=== PATIENT | female | born 1955 | race Caucasian/White ===

== ENCOUNTER 2022-06-09 13:10 | Outpatient (REF) | payer MEDICARE, SELFPAY ==
--- NOTE | ~2022-06-09 | MM_ITS ---
EXAMINATION: MM SCREENING DIGITAL BREAST TOMOSYNTHESIS, BILATERAL CLINICAL INFORMATION: Screening. Asymptomatic. The lifetime risk of breast cancer based on the Tyrer-Cuzick Model is 8%. COMPARISON: Outside mammography: 11/07/2016, 11/16/2015, 11/03/2015, 10/27/2014 ([place]) TECHNIQUE: Digital breast tomosynthesis is performed in both the craniocaudal and mediolateral oblique views along with computer-aided detection (CAD). Synthesized 2D images are generated from the tomosynthesis. FINDINGS: The breasts are heterogeneously dense, which may obscure small masses (ACR BI-RADS breast composition Category c). Breast tissue composition borders on extremely dense. Parenchymal pattern is similar to prior outside studies. There is no significant mass or abnormal calcifications. No architectural abnormality or developing density. The axilla are unremarkable. MM/MM tomosynthesis screening BI IMPRESSION: No mammographic evidence of malignancy. ASSESSMENT: BI-RADS 1: Negative RECOMMENDATION: Routine annual mammography screening. This patient's information was entered into a reminder system with a target due date for their next mammogram.
--- NOTE | ~2022-06-09 | MM_ITS ---
EXAMINATION: BONE DENSITOMETRY CLINICAL INDICATION: Menopause. COMPARISON: This is the patient's baseline examination. TECHNIQUE: Using a [employer] DXA System (software version: 13.1) manufactured by [employer], dual-energy x-ray absorptiometry was performed of the lumbar spine and left hip. The images are of good technical quality. Summary results are attached. FINDINGS: AP SPINE L1-L4: BMD 0.831 g/cm2, Z-score -1.0, T-score -2.9, osteoporosis. LEFT FEMUR, NECK: BMD 0.774 g/cm2, Z-score -0.2, T-score -1.9, osteopenia. LEFT FEMUR, TOTAL: BMD 0.749 g/cm2, Z-score -0.6, T-score -2.1, osteopenia. IDENTIFIED RISK FACTORS: Menopause, tobacco use (current smoker). HISTORY OF FRACTURE: None listed. MEDICATIONS: None listed. MM/XR DEXA axial skeleton IMPRESSION: 1. DIAGNOSIS: Osteoporosis based on the lowest T-score value of -2.9 in the lumbar spine applying World Health Organization criteria. 2. 10-YEAR FRACTURE RISK PREDICTION, FRAX: According to the guidelines, FRAX calculation should only be performed on patients in the osteopenia bone density category. Therefore, FRAX was not performed on this patient. 3. Treatment Recommendations: NOF guidelines recommend consideration for treatment in postmenopausal women and men age 50 and older presenting with the following: -A hip or vertebral (clinical or morphometric) fracture. -T-score less than or equal to -2.5 at the femoral neck or spine after appropriate evaluation to exclude secondary causes. -Low bone mass at the hip or spine and a 10-year fracture probability by FRAX of greater than or equal to 3% for hip fracture or greater than or equal to 20% for major osteoporotic fracture based on the [place] adapted WHO algorithm. 4. Other Recommendations: All treatment decisions require clinical judgment and consideration of individual patient factors, including patient preferences, comorbidities, previous drug use, risk factors not captured in the FRAX model (e.g. frailty, falls, vitamin D deficiency, increased bone turnover, interval significant decline in bone density) and possible under or overestimation of fracture risk by FRAX. Additional medical evaluation for secondary cause of low bone mineral density may be appropriate. FUTURE SCAN RECOMMENDATION: People with diagnosed cases of osteoporosis or at high risk for fracture should have regular bone mineral density tests. For patients eligible for Medicare, routine testing is allowed once every 2 years. The testing frequency can be increased to one year for patients who have rapidly progressing disease, those who are receiving or discontinuing medical therapy to restore bone mass, or have additional risk factors.
== END 2022-06-09 13:11 | disposition home or self-care (01) ==
LOC: HO.MAMMO 13:10
PROVIDERS: Visit Provider Nurse Practitioner Family
DX: Z12.31 Encounter for screening mammogram for malignant neoplasm of breast (principal); Z13.820 Encounter for screening for osteoporosis; Z78.0 Asymptomatic menopausal state
CPT/HCPCS: 77063; 77067; 77080

== ENCOUNTER 2022-07-15 06:32 | Outpatient (REF) | payer MEDICARE, SELFPAY ==
[2022-07-15 11:43] LABS: MANUAL DIFF FLAG NO
[2022-07-15 11:49] LABS: Basophils Absolute Auto 0.1 X10*3/uL (0.0-0.2); Basophils Percent Auto 0.8 % (0-2); Eosinophils Absolute Auto 0.2 X10*3/uL (0.0-0.4); Eosinophils Percent Auto 1.5 % (0-4); Hematocrit 44.3 % (37.0-47.0); Hemoglobin 14.6 g/dl (12.0-16.0); Imm Gran Abs Auto 0.03 X10*3/uL (0.00-0.03); Imm Gran Pct Auto 0.3 % (0.0-0.4); Lymphocytes Absolute Auto 2.3 X10*3/uL (1.2-4.9); Lymphocytes Percent Auto 21.4 % (20-40); Mean Corpuscular Hemoglobin 28.2 pg (27.0-33.0); Mean Corpuscular Volume 85.7 fL (80.0-98.0); Monocytes Absolute Auto 0.9 X10*3/uL (0.1-1.2); Monocytes Percent Auto 8.5 % (2-11); Neutrophils Absolute Auto 7.2 x10*3/uL (2.0-8.3); Neutrophils Percent Auto 67.5 % (45-73); Platelet Count 311 X10*3/uL (160-400); Red Blood Count 5.17 X10*6/uL (4.20-5.50); Red Cell Distribution Width 14.1 % (11.0-16.0); White Blood Count 10.6 X10*3/uL (4.8-10.8)
[2022-07-15 11:49] LABS: Appearance Urine Clear; Color Urine Yellow; Glucose Urine UA Negative (Negative); Leukocyte Esterase Urine Moderate (2+) (Negative); Nitrite Urine Negative (Negative); Specific Gravity - Urine 1.025 (1.005-1.025); UMIC TRIGGER UACC YES; Urine Blood Moderate (2+) (Negative); Urine Ketones Negative (Negative); Urine Protein Trace mg/dL (Neg-Trace)
[2022-07-15 11:57] LABS: Bacteria Urine 1+ (None Seen); Hyaline Casts Urine 0-2 /LPF (0-2); UACC Culture Trigger YES
[2022-07-15 12:20] LABS: Alanine Aminotransferase 19 U/L (0-31); Alkaline Phosphatase 72 U/L (39-117); Anion Gap 14 (12-20); Aspartate Amino Transferase 16 U/L (5-31); Bilirubin Total 0.6 mg/dL (0.0-1.0); Blood Urea Nitrogen 15 mg/dL (9-16); Calcium 9.4 mg/dL (8.4-10.2); Carbon Dioxide 23 mmol/L (22-29); Chloride 111 mmol/L (96-108); Cholesterol 235 mg/dL; Estimated Glomerular Filt Rate > 60; Glucose Fasting 93 mg/dL (60-99); HDL Cholesterol 76 mg/dL; LDL Cholesterol Calculated 143 mg/dl; Potassium 4.2 mmol/L (3.3-5.1); Sodium 144 mmol/L (135-145); Total Protein 6.6 g/dL (6.5-8.0); Triglycerides 82 mg/dL
[2022-07-15 12:23] LABS: TSH reflex Free T4 1.34 uIU/mL (0.32-4.0); Vitamin D 25-OH Total 14.1 ng/mL (>30)
== END 2022-07-15 06:33 | disposition home or self-care (01) ==
LOC: HO.HMGCLDS 06:32
PROVIDERS: PCP Nurse Practitioner Family; Visit Provider Nurse Practitioner Family
DX: I10 Essential (primary) hypertension (principal); R82.90 Unspecified abnormal findings in urine; Z78.0 Asymptomatic menopausal state
CPT/HCPCS: 36415; 80053; 80061; 81001; 82306; 84443; 85025; 87086

== ENCOUNTER → 2022-09-01 09:43 | Outpatient (REF) | payer MEDICARE, SELFPAY ==
--- NOTE | 2022-09-01 09:45 | CA_ITS ---
Transthoracic Echocardiogram Patient (Last, First, Middle): Jenifer Moreno L Gender: Female Date of : 1955 Age: 66 Procedure Date: 09/01/2022 Procedure Type: Transthoracic Echocardiogram Location: OP Height: 157.48 cm Weight: 54.43 kg BSA: 1.54 m2 Heart Rate: 62 bpm BP: 134 / 84 mmHg Meat Specialist: SB Referring MD: Gerald Last [facility] Symptoms: R00.2 - Palpitations Study Quality: Adequate ECG Rhythm: Sinus Conclusions: - Normal left ventricular size, thickness, and systolic function. The visually estimated ejection fraction is between 60-65%. - Normal right ventricular cavity size and systolic function. Findings Left Ventricle Normal left ventricular size, thickness, and systolic function. The visually estimated ejection fraction is between 60-65%. Diastolic function is normal for age. Normal global longitudinal strain -20%. Right Ventricle Normal right ventricular cavity size and systolic function. Atria The left atrium is normal in size. The right atrium is normal in size. Aortic Valve Normal aortic valve structure and function. There is no aortic valve stenosis. There is trace (trivial) aortic valve regurgitation. Mitral Valve Normal mitral valve structure and function. There is trace mitral valve regurgitation. There is no mitral valve stenosis. Pulmonic Valve The pulmonic valve is likely normal. Tricuspid Valve Normal tricuspid valve structure and function. There is no tricuspid valve regurgitation. Normal right atrial pressure. There is no evidence of pulmonary hypertension. Great Vessels There is mild dilatation of the ascending aorta measuring 3.20 cm. The visualized portions of the pulmonary artery and branches are normal. Venous The inferior vena cava is normal in size and collapses greater than 50% with inspiration. Pericardium/Pleural There is no evidence of pericardial effusion. Prior Study Comparison No prior study available for comparison. Measurements 2D Linear Measurements IVSd: 0.82 0.6-0.9/0.6-1.0 cm LVIDd: 4.28 3.9-5.3/4.2-5.9 cm LVIDd Index: 2.78 2.4-3.2/2.2-3.1 cm/m2 LVIDs: 2.53 2.0-3.6 cm LVPWd: 0.80 0.7-1.1 cm LA Diam: 3.60 2.7-3.8/3.0-4.0 cm LAIDs Index: 2.34 1.5-2.3 cm/m2 LV Mass: 131.84 67-162/88-224 g LV Mass Index: 85.61 43-95/49-115 g/m2 LVOT Diam: 2.00 3.0+(-)1.3 cm 2D Systolic Function EF 4C: 70.60 >55% EF 2C: 71.30 >55% EF BiP: 71.40 >55% Mitral Valve MV Pk E: 0.97 MV PK A: 0.80 MV Decel Time: 210.00 E/A: 1.20 E'Lateral: 8.49 E'Medial: 7.40 E/E' Med: 13.10 E/E' Lat: 11.50 PHT: 61.00 MVA PHT: 3.61 Decel [place]: 4.64 Aortic Valve AoV Pk Nain: 1.26 AoV Mn Nain: 0.96 AoV VTI: 0.30 AoV Pk Grad: 6.00 Aov Mn Grad: 4.00 WONG Cont.VTI: 2.71 AI Pk Nain: 4.33 AI [place]: 1.99 LVOT LVOT Pk Nain: 1.13 LVOT Mn Nain: 0.73 LVOT VTI: 0.26 LVOT Pk Grad: 5.00 LVOT Mn Grad: 3.00 LVOT Diam: 2.00 LVOT Area: 3.14 Diastolic Function MV Pk E: 0.97 MV Pk A: 0.80 E/A: 1.20 E'Medial: 7.40 E/E' Med: 13.10 E' Laterial: 8.49 E/E' Lat: 11.50 Right Ventricle TAPSE (mm): 24.70 TVS' Nain: 13.70 Tricuspid Valve TR Pk Nain: 2.10 TR Pk Grad: 18.00 RA Press: 3.00 RVSP: 21.00 Great Vessels Aorta Sinus of Valsalva: 3.10 2.0-3.5 cm Ao Asc: 3.20 2.1-3.4 cm Pulmonary Veins Pulm Vein S/D 1.10 Pulmonary Valve PV Pk Nain: 1.18 Peak PV Grad: 6.00 Updated in Other Vendor System with Status of Final Miguel Pablo MD electronically signed on 09/04/2022 9:07:07 AM with status of Final
== END ==
LOC: HO.CARD 09:43
PROVIDERS: PCP Nurse Practitioner Family; Visit Provider Nurse Practitioner Family
DX: R00.2 Palpitations (principal); I10 Essential (primary) hypertension; F17.200 Nicotine dependence, unspecified, uncomplicated
CPT/HCPCS: 93306; 93356

== ENCOUNTER 2023-01-13 06:32 | Outpatient (REF) | payer MEDICARE, SELFPAY ==
[2023-01-13 11:51] LABS: Alanine Aminotransferase 25 U/L (0-31); Albumin Level 4.2 g/dL (3.5-5.0); Alkaline Phosphatase 58 U/L (39-117); Anion Gap 12 (12-20); Aspartate Amino Transferase 20 U/L (5-31); Bilirubin Total 0.4 mg/dL (0.0-1.0); Blood Urea Nitrogen 14 mg/dL (9-16); Carbon Dioxide 28 mmol/L (22-29); Chloride 108 mmol/L (96-108); Cholesterol 191 mg/dL; Estimated Glomerular Filt Rate > 60; Glucose Fasting 89 mg/dL (60-99); HDL Cholesterol 76 mg/dL; LDL Cholesterol Calculated 97 mg/dl; Potassium 3.8 mmol/L (3.3-5.1); Sodium 144 mmol/L (135-145); Total Protein 7.3 g/dL (6.5-8.0); Triglycerides 93 mg/dL
== END 2023-01-13 06:33 | disposition home or self-care (01) ==
LOC: HO.HMGCLDS 06:32
PROVIDERS: PCP Nurse Practitioner Family; Visit Provider Nurse Practitioner Family
DX: E78.5 Hyperlipidemia, unspecified (principal)
CPT/HCPCS: 36415; 80053; 80061

== ENCOUNTER 2023-01-22 07:59 | Outpatient (AMB) | payer MEDICARE, SELFPAY ==
[2023-01-22 08:08] VITALS: BP 126/70; PULSE 74; TEMP 36.6; O2SAT 97; BMI 23.6
--- NOTE | 2023-01-22 08:08 | MHC.OFFWIV ---
Intake Vital Signs 01/22/23 08:08 Height 5 ft 1 in Weight 56.699 kg BMI 23.6 BP 126/70 Blood Pressure Location Rt brachial Position Sitting Pulse 74 Pulse Source Pulse Oximeter Temp 97.8 F Temp Source Temporal Artery Scan Pulse Oximetry (%) 97 Intake Visit Reasons: Ear Pain/was JGs 830 appt Intake Note: pt is here for left pain due to swimming Patient Tobacco Use Status: Current everyday Tobacco user Allergies amoxicillin Allergy (Mild, Verified 01/22/23 08:09) hives sulfamethoxazole [From Bactrim] Allergy (Mild, Verified 01/22/23 08:09) Hives trimethoprim [From Bactrim] Allergy (Mild, Verified 01/22/23 08:09) Hives Do you need a note to return to daycare/school/sports/work: No HPI HPI Comments History of Present Illness Details 0825 67 yo f hx of htn presents w/ left ear pain for a few days worsening started after swimming. Denies otorrhea, fevers, chills, dizziness, weakness, headache, nausea, vomiting, abdominal pain. Physical exam with discomfort with manipulation of left external ear and mild errythema to L ear canal. History and physical exam concerning for otitis externa. Unlikely otitis media, malignant otitis, mastoiditis. No signs of sepsis Plan Ciprodex drops. Educated patient on diagnosis and treatment plan, answered all question, patient verbalizes understanding. At this time patient will be discharged home, advised to return with new or worsening symptoms. Educated on worrisome signs and symptoms and when to return. At this time I feel comfortable discharge home. 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 Current occupational exposures/hazards: Yes Cognitive needs: No Hearing needs: No Vision needs: No Review of Systems Const Details: Constitutional : No Weight loss, No Fever, No Chills, No Fatigue, No Malaise ENT/Mouth : No sore throat, No Rhinorrhea, +ear pain Eyes: No Eye Pain, No Swelling, No Redness Cardiovascular : No Chest Pain, No SOB, No Dyspnea on Exertion, No Orthopnea, No Edema, No Palpitations Respiratory : No Cough, No Sputum, No Wheezing Gastrointestinal : No Nausea, No Vomiting, No Diarrhea, No Constipation, No abdominal Pain, No Hematochezia, No Melena Genitourinary : No Dysuria, No Urinary Frequency, No Hematuria, Musculoskeletal : No joint pain, No Myalgias, No Joint Swelling Skin : No Skin Lesions, No rash Neuro : No Weakness, No Numbness, No Dizziness, No Headache Psych : No Anxiety/Panic, No Depression All other systems reviewed and are negative All systems reviewed & are unremarkable except as noted in HPI and below Physical Exam Vital Signs: Last Vital Signs Temp 97.8 F 01/22/23 08:08 Pulse 74 01/22/23 08:08 BP 126/70 01/22/23 08:08 Pulse Ox 97 01/22/23 08:08 BMI result Body Mass Index 23.6 vss Appearance: Alert.? Oriented X3.? No acute distress.? Head: Normocephalic, atraumatic, no step-offs or deformities Eyes: Pupils equal, round and reactive to light.? ENT: Pharynx normal.??External ears normal, TMs normal bilaterally and EAC's w/ errythema to left ear canal normal right ear canal. + pain with manipulation of external ears on left, negative on right. No mastoid tenderness. Neck: Normal inspection.? Neck supple.? CVS: Normal heart rate and rhythm.? Pulses normal.? Respiratory: No respiratory distress.? Breath sounds normal.? Abdomen: Soft and nontender.? Skin: Skin warm and dry.? Normal skin color.? Normal skin turgor.? Extremities: No lower extremity edema.? No calf ttp. 5/5 strength to bilateral upper and lower extremities Neuro: Oriented X 3.? No motor deficit.? No sensory deficit. CN 2-12 intact Assessment & Plan Assessment & Plan (1) Otitis externa: Code(s): H60.90 - Unspecified otitis externa, unspecified ear Plan Take your medications as prescribed. If you were prescribed antibiotics today, it is important that you take your medication to their entirety, do not skip any doses, do not finish them early. Follow-up with your primary care provider this week. Return to the emergency department with new or worsening symptoms. In case of emergency call 911 Medications: New ciprofloxacin-dexamethasone 0.3-0.1 % (Ciprodex) 4 drps otic (ears) BID 7.5 mL 0RF 7 days Coding Level of Care Code Est Pt Level 3 (30707) Diagnoses Otitis externa H60.90
== END 2023-01-22 08:58 | disposition home or self-care (01) ==
PROVIDERS: PCP Nurse Practitioner Family; Visit Provider Physician Assistant
DX: H60.92 Unspecified otitis externa, left ear (principal)
CPT/HCPCS: 99213

== ENCOUNTER 2023-03-20 15:07 | Outpatient (AMB) | payer MEDICARE, SELFPAY ==
--- NOTE | 2023-03-20 15:10 | A.OFFPC_ITS ---
Vital Signs 03/20/23 15:14 Height 5 ft 1 in Weight 130 lb BMI 24.6 BP 140/76 H Blood Pressure Location Rt brachial Position Sitting Pulse 76 Pulse Source Pulse Oximeter Pulse Oximetry (%) 97 Oxygen Delivery Method Room Air Intake Visit Reasons: 5 month f/u HTN r/s from 01/22 Allergies amoxicillin Allergy (Mild, Verified 03/20/23 15:14) hives sulfamethoxazole [From Bactrim] Allergy (Mild, Verified 03/20/23 15:14) Hives trimethoprim [From Bactrim] Allergy (Mild, Verified 03/20/23 15:14) Hives Tobacco use date assessed: 08/22/22 Fall risk assessment: No Falls in past year Last assessed Fall Risk: 03/20/23 Dental Screening Dental Screen Date: 03/20/23 Did you have a dental visit in the last 12 months?: Yes Did you have a dental problem in the last 6 months where you did not have access to dental care?: No Was dental information given to patient?: Patient has dentist HPI 5 month f/u HTN r/s from 01/22 HPI Details HTN: Blood pressure is managed with amlodipine 5mg. Pt reports that her blood pressure at home is in the 130s/70s. Denies chest pain, shortness of breath, headache, dizziness, and blurred vision. Refuses low-dose lung CTs. [facility] Medical History Osteoporosis Social History Housing: House Patient Tobacco Use Status: Current everyday Tobacco user Cigarettes Per Day: 4 e-Cigarette/Vaping Use: Never Used Second Hand Smoke Exposure: No service: No Current occupational status: employed Current occupation: [employer] Current occupational exposures/hazards: Yes Cognitive needs: No Hearing needs: No Vision needs: No Questionnaire Thrive Questionnaire Date Thrive assessed: 05/24/22 PAM-7 AMB Questionnaire PAM-7 Date PAM - 7 assessed: 05/24/22 Source: Developed by Drs. Kobe Rivera, Rika Mccann, Ceasar Nascimento and colleagues, with an educational steffen from [employer]. Review of Systems Const Reports as per HPI Physical exam (Primary Care) Vital Signs: Last Vital Signs Pulse 76 10/24/23 15:14 BP 140/76 H 03/20/23 15:14 Pulse Ox 97 03/20/23 15:14 Oxygen Delivery Method Room Air 03/20/23 15:14 BMI result Body Mass Index 24.6 Tobacco/Smoking Status: Tobacco use Status Tobacco use date assessed 08/22/22 03/20/23 15:11 Patient Tobacco Use Status Current everyday Tobacco 03/20/23 15:11 e-Cigarette/Vaping Use Never Used 03/20/23 15:11 Thrive Assessment: Date of Thrive Assessment Date Thrive assessed 05/24/22 03/20/23 15:11 Const General: cooperative Orientation/consciousness: patient oriented x3 Resp Effort & Inspection: normal respiratory effort Auscultation: clear to auscultation bilaterally Cardio Rate: regular rate Rhythm: regular rhythm Heart sounds: S1 normal heart sound present and S2 normal heart sound present Neuro General: patient oriented x3 Psych Appearance: grossly normal Mental Status: mental status grossly normal Speech and movement: Normal speech and movement present Affect: normal affect Attitude: cooperative Thought process: Normal thought process present Thought content: Normal thought content present Insight: Good insight present (Psych) Judgement: Good judgement present (Psych) Assessment and Plan Assessment & Plan (1) HTN (hypertension): Code(s): I10 - Essential (primary) hypertension Plan: Labs ordered (2) Osteoporosis: Code(s): M81.0 - Age-related osteoporosis without current pathological fracture Plan: Vitamin D ordered on vitamin d and calcium supplement Plan The patient agreed to the use of a medical insurance claims processor for this encounter. Scribed for DELVIN Mendoza by Erika Torres medical insurance claims processor, on 03/20/2023 at 15:25 EST Orders: Orders Complete Blood Count Auto Diff Today I10 - Essential (primary) hypertension TSH reflex Free T4 Today I10 - Essential (primary) hypertension UA CC w/rflx Micro + Cult Today I10 - Essential (primary) hypertension Comprehensive Hanna. Panel Fast Today I10 - Essential (primary) hypertension Lipid Panel Today I10 - Essential (primary) hypertension Vitamin D 25-OH Total Today M81.0 - Age-related osteoporosis without current pathological fracture Coding Level of Care Code Est Pt Level 3 (43126) Diagnoses HTN (hypertension) I10 Osteoporosis M81.0
[2023-03-20 15:14] VITALS: BP 140/76; PULSE 76; O2SAT 97; BMI 24.6
== END 2023-03-20 15:56 | disposition home or self-care (01) ==
PROVIDERS: PCP Nurse Practitioner Family; Visit Provider Nurse Practitioner Family
DX: I10 Essential (primary) hypertension (principal); M81.0 Age-related osteoporosis without current pathological fracture
CPT/HCPCS: 99213

== ENCOUNTER 2023-08-20 14:01 | Outpatient (REF) | payer MEDICARE, SELFPAY | END 2023-08-20 14:02 | disposition home or self-care (01) | LOC: HO.MAMMO 14:01 | PROVIDERS: PCP Nurse Practitioner Family; Visit Provider Nurse Practitioner Family | DX: Z12.31 Encounter for screening mammogram for malignant neoplasm of breast (principal) | CPT/HCPCS: 77063; 77067 ==

== ENCOUNTER → 2023-08-20 14:15 | Outpatient (BNV) | payer MEDICARE, SELFPAY | PROVIDERS: PCP Nurse Practitioner Family; Visit Provider Radiology Diagnostic Radiology | DX: Z12.31 Encounter for screening mammogram for malignant neoplasm of breast (principal) | CPT/HCPCS: 77063; 77067 ==

== ENCOUNTER 2023-09-19 06:41 | Outpatient (REF) | payer MEDICARE, SELFPAY ==
[2023-09-19 10:25] LABS: MANUAL DIFF FLAG NO
[2023-09-19 10:36] LABS: Basophils Absolute Auto 0.1 X10*3/uL (0.0-0.2); Basophils Percent Auto 0.8 % (0-2); Eosinophils Absolute Auto 0.1 X10*3/uL (0.0-0.4); Eosinophils Percent Auto 1.2 % (0-4); Hematocrit 42.2 % (37.0-47.0); Hemoglobin 14.3 g/dl (12.0-16.0); Imm Gran Abs Auto 0.04 X10*3/uL (0.00-0.03); Imm Gran Pct Auto 0.4 % (0.0-0.4); Lymphocytes Percent Auto 19.1 % (20-40); Mean Corpuscular HGB Conc 33.9 g/dl (31.0-35.0); Mean Corpuscular Volume 85.6 fL (80.0-98.0); Mean Platelet Volume 12.5 fL (9.4-12.3); Monocytes Absolute Auto 0.9 X10*3/uL (0.1-1.2); Monocytes Percent Auto 8.7 % (2-11); Neutrophils Absolute Auto 7.2 x10*3/uL (2.0-8.3); Neutrophils Percent Auto 69.8 % (45-73); Platelet Count 266 X10*3/uL (160-400); Red Blood Count 4.93 X10*6/uL (4.20-5.50); Red Cell Distribution Width 14.4 % (11.0-16.0); White Blood Count 10.3 X10*3/uL (4.8-10.8)
[2023-09-19 11:07] LABS: Alanine Aminotransferase 25 U/L (0-31); Albumin Level 4.2 g/dL (3.5-5.0); Alkaline Phosphatase 62 U/L (39-117); Anion Gap 11 (12-20); Aspartate Amino Transferase 20 U/L (5-31); Bilirubin Total 0.4 mg/dL (0.0-1.0); Blood Urea Nitrogen 15 mg/dL (9-16); Calcium 9.8 mg/dL (8.4-10.2); Carbon Dioxide 27 mmol/L (22-29); Chloride 108 mmol/L (96-108); Cholesterol 169 mg/dL (<200); Estimated Glomerular Filt Rate > 60; Glucose Fasting 92 mg/dL (60-99); HDL Cholesterol 72 mg/dL (>40); LDL Cholesterol Calculated 84 mg/dL (<100); Potassium 3.5 mmol/L (3.3-5.1); Sodium 142 mmol/L (135-145); Total Protein 7.3 g/dL (6.5-8.0); Triglycerides 68 mg/dL (<150)
[2023-09-19 11:26] LABS: TSH reflex Free T4 < 0.01 uIU/mL (0.32-4.0); Vitamin D 25-OH Total 58.1 ng/mL (>30)
[2023-09-19 12:36] LABS: Free T4 (Free Thyroxine) 1.27 ng/dL (0.71-1.85)
== END 2023-09-19 06:42 | disposition home or self-care (01) ==
LOC: HO.HMGCLDS 06:41
PROVIDERS: PCP Nurse Practitioner Family; Visit Provider Nurse Practitioner Family
DX: M81.0 Age-related osteoporosis without current pathological fracture (principal); I10 Essential (primary) hypertension
CPT/HCPCS: 36415; 80053; 80061; 82306; 84439; 84443; 85025

== ENCOUNTER 2023-09-24 15:02 | Outpatient (AMB) | payer MEDICARE, SELFPAY ==
--- NOTE | 2023-09-24 15:12 | A.OFFPC_ITS ---
Vital Signs 09/24/23 15:14 Height 5 ft 1 in Weight 121 lb BMI 22.9 BP 116/58 L Blood Pressure Location Rt brachial Position Sitting Pulse 71 Pulse Source Pulse Oximeter Pulse Oximetry (%) 98 Oxygen Delivery Method Room Air Intake Visit Reasons: 6 month fu Intake Note: Patient here to f/u on HTN and labs Allergies amoxicillin Allergy (Mild, Verified 09/24/23 15:32) hives sulfamethoxazole [From Bactrim] Allergy (Mild, Verified 09/24/23 15:32) Hives trimethoprim [From Bactrim] Allergy (Mild, Verified 09/24/23 15:32) Hives Medication List - Last Reconciled 09/24/23 by DELVIN Brito amlodipine 5 mg PO DAILY 90 days calcium carbonate-vitamin D3 600 mg-12.5 mcg (500 unit) (Calcium 600 with Vitamin D3) 1 cap PO BID 30 days rosuvastatin 10 mg PO DAILY sumatriptan succinate (Imitrex) 100 mg PO Q2-4H PRN Tobacco use date assessed: 09/24/23 Fall risk assessment: No Falls in past year Last assessed Fall Risk: 09/24/23 Dental Screening Dental Screen Date: 09/24/23 Did you have a dental visit in the last 12 months?: Yes Did you have a dental problem in the last 6 months where you did not have access to dental care?: No Was dental information given to patient?: Patient has dentist HPI 6 month fu HPI Details HTN: Blood pressure is managed with amlodipine 5mg. BP is lower today, though pt denies any dizziness. She reports that her blood pressure at home is in the 120s/60s-70s. Pt will contact me to stop med if she develops dizziness or hypotension. Denies chest pain, shortness of breath, headache, dizziness, and blurred vision. Pt's TSH was low. Denies diarrhea, tremors, and weight loss. Labs ordered, US of thyroid ordered, referring to endo. Pt refused LDCTs [facility] Medical History Osteoporosis Social History Housing: House Patient Tobacco Use Status: Current everyday Tobacco user Cigarettes Per Day: 4 e-Cigarette/Vaping Use: Never Used Second Hand Smoke Exposure: No service: No Current occupational status: employed Current occupation: [employer] Current occupational exposures/hazards: Yes Cognitive needs: No Hearing needs: No Vision needs: No Questionnaire Thrive Questionnaire Date Thrive assessed: 05/24/22 PAM-7 AMB Questionnaire PAM-7 Date PAM - 7 assessed: 05/24/22 Source: Developed by Drs. Kobe Rivera, Rika Mccann, Ceasar Nascimento and colleagues, with an educational steffen from [employer]. Review of Systems Const Reports as per HPI Physical exam (Primary Care) Vital Signs: Last Vital Signs Pulse 71 09/24/23 15:14 BP 116/58 L 09/24/23 15:14 Pulse Ox 98 09/24/23 15:14 Oxygen Delivery Method Room Air 09/24/23 15:14 BMI result Body Mass Index 22.9 Tobacco/Smoking Status: Tobacco use Status Tobacco use date assessed 09/24/23 09/24/23 15:18 Patient Tobacco Use Status Current everyday Tobacco 09/24/23 15:12 e-Cigarette/Vaping Use Never Used 09/24/23 15:12 Thrive Assessment: Date of Thrive Assessment Date Thrive assessed 05/24/22 09/24/23 15:12 Const General: cooperative Orientation/consciousness: patient oriented x3 Resp Effort & Inspection: normal respiratory effort Auscultation: clear to auscultation bilaterally and diminished lung sounds Cardio Rate: regular rate Rhythm: regular rhythm Heart sounds: S1 normal heart sound present and S2 normal heart sound present Neuro General: patient oriented x3 Psych Appearance: grossly normal Mental Status: mental status grossly normal Speech and movement: Normal speech and movement present Affect: normal affect Attitude: cooperative Thought process: Normal thought process present Thought content: Normal thought content present Insight: Good insight present (Psych) Judgement: Good judgement present (Psych) Assessment and Plan Assessment & Plan (1) Low TSH level: Code(s): R79.89 - Other specified abnormal findings of blood chemistry Plan: labs, US, referred to endocrinology (2) HTN (hypertension): Code(s): I10 - Essential (primary) hypertension Plan: stable currently, will cont to monitor Plan The patient agreed to the use of a medical scientific liaison for this encounter. Scribed for DELVIN Mendoza by katelynn Teresa scribe, on 09/24/2023 at 15:25 EST. Orders: Referrals Endocrinology Referral R79.89 - Other specified abnormal findings of blood chemistry Coding Level of Care Code Est Pt Level 3 (91775) Diagnoses Low TSH level R79.89 HTN (hypertension) I10
[2023-09-24 15:14] VITALS: BP 116/58; PULSE 71; O2SAT 98; BMI 22.9
== END 2023-09-24 15:32 | disposition home or self-care (01) ==
PROVIDERS: PCP Nurse Practitioner Family; Visit Provider Nurse Practitioner Family
DX: R79.89 Other specified abnormal findings of blood chemistry (principal); I10 Essential (primary) hypertension
CPT/HCPCS: 99213

== ENCOUNTER 2024-01-09 13:45 | Outpatient (REF) | payer MEDICARE, SELFPAY ==
--- NOTE | ~2024-01-09 | US_ITS ---
EXAMINATION: US THYROID CLINICAL INFORMATION: Other specified abnormal findings of blood chemistry. Low TSH. COMPARISON: None available. TECHNIQUE: Linear transducer grayscale and color Doppler examination with attention to the region of the thyroid. FINDINGS: SIZE: Measurements of the thyroid lobes and nodules are given in sagittal, anteroposterior and transverse dimensions respectively. Right Thyroid Lobe: 5.0 x 1.7 x 1.4 cm, volume 6.2 mL. Parenchyma: The gland echotexture is heterogeneous. Thyroid vascularity is increased. Left Thyroid Lobe: 3.9 x 2.1 x 1.7 cm, volume 7.3 mL. Parenchyma: The gland echotexture is heterogeneous. Thyroid vascularity is increased. Isthmus: 0.2 cm in maximum AP dimension. Estimated total number of nodules greater than or equal to 1 cm: 0. Time Checker nodules are described as follows: 1. Location: Left inferior. Size: 0.8 x 0.6 x 0.6 cm, volume 0.13 mL. Nodule characteristics: Composition: Solid (2). Echogenicity: Hyperechoic (1). Shape: Not taller than wide (0). Margins: Smooth (0). Echogenic Foci: Punctate echogenic foci (3). ACR TI-RADS total points: 6 ACR TI-RADS category: 4 2. Location: Right mid. Size: 0.5 x 0.5 x 0.4 cm, volume 0.05 mL. Nodule characteristics: Composition: Solid (2). Echogenicity: Isoechoic (1). Shape: Not taller than wide (0). Margins: Smooth (0). Echogenic Foci: None (0). ACR TI-RADS total points: 3 ACR TI-RADS category: 3 NODES: No lymphadenopathy is seen in the tissue surrounding the thyroid gland. US/US thyroid IMPRESSION: 1. Small bilateral thyroid nodules are seen, as detailed. No specific imaging follow-up is recommended. 2. There is heterogeneous thyroid echotexture and increased vascularity, which can be associated with thyroiditis. ACR TI-RADS RECOMMENDATION REFERENCE: Ultrasound-guided fine-needle aspiration, followup ultrasound, no further follow up. * TR1 (0 point) and TR2 (2 points): No FNA or follow up. * TR3 (3 points): FNA if more than or equal to 2.5 cm in maximum dimension, followup ultrasound in 1, 3 and 5 years if 1.5 to 2.4 cm in maximum dimension. * TR4 (4-6 points): FNA if more than or equal to 1.5 cm in maximum dimension, followup ultrasound in 1, 2, 3 and 5 years if 1 to 1.4 cm in maximum dimension. * TR5 (more than or equal to 7 points): FNA if more than or equal to 1 cm in maximum dimension, followup ultrasound every year for 5 years if 0.5 to 0.9 cm in maximum dimension. * TR3, TR4 or TR5 nodules that are below the size threshold for followup receive no follow up. Electronically signed by: Gerald Larkin MD 02/05/2024 08:05 PM EDT RP
== END 2024-01-09 13:46 | disposition home or self-care (01) ==
LOC: HO.HMGCX 13:45
PROVIDERS: PCP Nurse Practitioner Family; Visit Provider Nurse Practitioner Family
DX: R79.89 Other specified abnormal findings of blood chemistry (principal)
CPT/HCPCS: 76536

== ENCOUNTER 2024-03-19 10:02 | Outpatient (AMB) | payer MEDICARE, SELFPAY ==
[2024-03-19 10:05] VITALS: BP 130/72; PULSE 86; O2SAT 98; BMI 22.3
--- NOTE | 2024-03-19 10:05 | A.OFFPC_ITS ---
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 Accompanied by: Self / Same As Patient Allergies amoxicillin Allergy (Mild, Verified 03/19/24 11:44) hives sulfamethoxazole [From Bactrim] Allergy (Mild, Verified 03/19/24 11:44) Hives trimethoprim [From Bactrim] Allergy (Mild, Verified 03/19/24 11:44) Hives Medication List - Last Reconciled 03/19/24 by DELVIN Brito amlodipine 5 mg PO DAILY 90 days calcium carbonate-vitamin D3 600 mg-12.5 mcg (500 unit) (Calcium 600 with Vitamin D3) 1 cap PO BID 30 days rosuvastatin 10 mg PO DAILY sumatriptan succinate (Imitrex) 100 mg PO Q2-4H PRN Tobacco use date assessed: 09/24/23 Fall risk assessment: No Falls in past year Last assessed Fall Risk: 03/19/24 Dental Screening Dental Screen Date: 09/24/23 HPI 6 month fu HPI Details HTN: Blood pressure is stable, managed with amlodipine 5mg. Will order labs. Denies chest pain, shortness of breath, headache, dizziness, and blurred vision. Pt has a hx of low TSH. Pt was referred to endo in August but never heard anything about this. Will resubmit referral. Will order labs. [facility] Medical History Osteoporosis Surgical History No pertinent past surgical history Social History Housing: House Patient Tobacco Use Status: Current everyday Tobacco user Cigarettes Per Day: 4 e-Cigarette/Vaping Use: Never Used Second Hand Smoke Exposure: No service: No Current occupational status: employed Current occupation: [employer] Current occupational exposures/hazards: Yes Cognitive needs: No Hearing needs: No Vision needs: No Questionnaire PHQ-9 Over the last 2 weeks, how often have you been bothered by any of the following problems? 1. Little interest or pleasure in doing things: not at all 2. Feeling down, depressed, or hopeless: not at all 3. Trouble falling or staying asleep, or sleeping too much: not at all 4. Feeling tired or having little energy: not at all 5. Poor appetite or overeating: not at all 6. Feeling bad about yourself - or that you are a failure or have let yourself or your family down: not at all 7. Trouble concentrating on things, such as reading the newspaper or watching television: not at all 8. Moving or speaking so slowly that other people could have noticed. Or the opposite - being so fidgety or restless that you have been moving around a lot more than usual: not at all 9. Thoughts that you would be better off or of hurting yourself in some way: not at all Total score: 0 Depression Screening Interpretation: Negative Depression Screening Done: Yes 51170 - PHQ-9 Billing: Yes Source: Developed by Drs. Kobe Rivera, Rika Mccann, Ceasar Nascimento and colleagues, with an educational steffen from [employer] Thrive Questionnaire Date Thrive assessed: 03/19/24 I am a: Patient What is your living situation today?: I have a steady place to live Within the past 12 months, did the food you bought not last and you didn't have the money to get more?: Never true Within the past 12 months, did you worry whether your food would run out before you got money to buy more?: Never true Do you have trouble paying for medicines?: No Do you have trouble getting transportation to medical appointments?: No Do you have trouble paying your heating and electricity bill?: No Do you have trouble taking care of your child, family member or friend?: No Do you have trouble with day-to-day activities such as bathing, preparing meals, shopping, managing finances, etc.?: No Are you currently unemployed and looking for a job?: No Are you interested in more education?: No Please select the resources that you would like help with: None Currently or been in a relationship where the following occur: No concerns reported THRIVE Score: 0 AUDIT C Alcohol Use Questionnaire (AUDIT-C) 1. How often do you have a drink containing alcohol?: Never 3. How often do you have six or more drinks on one occasion?: Never Total Score: 0 Score Reviewed/Action Taken: Yes PAM-7 AMB Questionnaire PAM-7 Date PAM - 7 assessed: 03/19/24 Feeling nervous, anxious, or on edge: 0 = Not at all Not being able to stop or control worryin = Not at all Worrying too much about different things: 0 = Not at all Trouble relaxin = Not at all Being so restless that it is hard to sit still: 0 = Not at all Becoming easily annoyed or irritable: 0 = Not at all Feeling afraid as if something awful might happen: 0 = Not at all Total PAM-7 score (0-4 normal; 5-9 mild; 10-14 moderate; 15-21 severe): 0 Source: Developed by Drs. Kobe Rivera, Rika Mccann, Ceasar Nascimento and colleagues, with an educational steffen from [employer] PAM-7 Assessment Billing PAM-7 Assessment Tool: PAM-7 Assessment 12845 Review of Systems Const Reports as per HPI Physical exam (Primary Care) Vital Signs: Last Vital Signs Pulse 86 03/19/24 10:05 BP 130/72 03/19/24 10:05 Pulse Ox 98 03/19/24 10:05 BMI result Body Mass Index 22.3 Tobacco/Smoking Status: Tobacco use Status Tobacco use date assessed 09/24/23 03/19/24 10:07 Patient Tobacco Use Status Current everyday Tobacco 03/19/24 10:07 e-Cigarette/Vaping Use Never Used 03/19/24 10:07 PHQ-9: PHQ-9 Score PHQ-9: Total score 0 03/19/24 10:35 Depression Screening Interpretation: Negative Thrive Assessment: Date of Thrive Assessment Date Thrive assessed 03/19/24 03/19/24 10:07 Currently or been in a relationship where the following occur: No concerns reported Const General: cooperative Orientation/consciousness: patient oriented x3 Resp Effort & Inspection: normal respiratory effort Auscultation: clear to auscultation bilaterally and diminished lung sounds Cardio Rate: regular rate Rhythm: regular rhythm Heart sounds: S1 normal heart sound present and S2 normal heart sound present Neuro General: patient oriented x3 Psych Appearance: grossly normal Mental Status: mental status grossly normal Speech and movement: Normal speech and movement present Affect: normal affect Attitude: cooperative Thought process: Normal thought process present Thought content: Normal thought content present Insight: Good insight present (Psych) Judgement: Good judgement present (Psych) Coding Level of Care Code Est Pt Level 3 (73223) Diagnoses Low TSH level R79.89 HTN (hypertension) I10 Additional Codes PAM-7 Assessment Billing - PAM-7 Assessment Tool: PAM-7 Assessment 24724 ([id number]) Assessment & Plan Assessment & Plan (1) Low TSH level: Code(s): R79.89 - Other specified abnormal findings of blood chemistry Category: Medical Plan: Labs ordered, referred again to endo (2) HTN (hypertension): Code(s): I10 - Essential (primary) hypertension Category: Medical Plan: Stable, labs ordered Plan The patient agreed to the use of a nurses medical assistants phlebotomists for this encounter. Scribed for DELVIN Mendoza by Erika Torres nurses medical assistants phlebotomists, on 03/19/2024 at 10:30 EST. Orders: Orders Complete Blood Count Auto Diff Today I10 - Essential (primary) hypertension UA CC w/rflx Micro + Cult Today I10 - Essential (primary) hypertension Comprehensive [place]. Panel Fast Today I10 - Essential (primary) hypertension TSH reflex Free T4 Today I10 - Essential (primary) hypertension Lipid Panel Today I10 - Essential (primary) hypertension Referrals Endocrinology Referral R79.89 - Other specified abnormal findings of blood chemistry
== END 2024-03-19 11:12 | disposition home or self-care (01) ==
PROVIDERS: PCP Nurse Practitioner Family; Visit Provider Nurse Practitioner Family
DX: R79.89 Other specified abnormal findings of blood chemistry (principal); I10 Essential (primary) hypertension

== ENCOUNTER → 2024-03-19 10:02 | Outpatient (BNVA) | payer MEDICARE, SELFPAY | PROVIDERS: PCP Nurse Practitioner Family; Visit Provider Nurse Practitioner Family | DX: I10 Essential (primary) hypertension (principal); R94.6 Abnormal results of thyroid function studies; Z79.899 Other long term (current) drug therapy | CPT/HCPCS: 96127; 99212 ==

== ENCOUNTER 2024-03-20 06:01 | Outpatient (REF) | payer MEDICARE, SELFPAY ==
[2024-03-20 10:20] LABS: MANUAL DIFF FLAG NO
[2024-03-20 10:31] LABS: Basophils Absolute Auto 0.1 X10*3/uL (0.0-0.2); Basophils Percent Auto 0.9 % (0-2); Eosinophils Absolute Auto 0.1 X10*3/uL (0.0-0.4); Eosinophils Percent Auto 1.8 % (0-4); Hematocrit 43.5 % (37.0-47.0); Hemoglobin 14.6 g/dl (12.0-16.0); Imm Gran Abs Auto 0.02 X10*3/uL (0.00-0.03); Imm Gran Pct Auto 0.3 % (0.0-0.4); Lymphocytes Absolute Auto 2.2 X10*3/uL (1.2-4.9); Lymphocytes Percent Auto 29.7 % (20-40); Mean Corpuscular HGB Conc 33.6 g/dl (31.0-35.0); Mean Corpuscular Hemoglobin 28.4 pg (27.0-33.0); Mean Corpuscular Volume 84.6 fL (80.0-98.0); Mean Platelet Volume 12.1 fL (9.4-12.3); Monocytes Absolute Auto 0.6 X10*3/uL (0.1-1.2); Monocytes Percent Auto 8.4 % (2-11); Neutrophils Absolute Auto 4.4 x10*3/uL (2.0-8.3); Neutrophils Percent Auto 58.9 % (45-73); Platelet Count 255 X10*3/uL (160-400); Red Blood Count 5.14 X10*6/uL (4.20-5.50); Red Cell Distribution Width 14.7 % (11.0-16.0); White Blood Count 7.4 X10*3/uL (4.8-10.8)
[2024-03-20 10:48] LABS: Alanine Aminotransferase 27 U/L (0-31); Albumin Level 4.2 g/dL (3.5-5.0); Alkaline Phosphatase 65 U/L (39-117); Anion Gap 11 (12-20); Aspartate Amino Transferase 26 U/L (5-31); Bilirubin Total 0.5 mg/dL (0.0-1.0); Blood Urea Nitrogen 18 mg/dL (9-16); Calcium 9.7 mg/dL (8.4-10.2); Carbon Dioxide 26 mmol/L (22-29); Chloride 108 mmol/L (96-108); Cholesterol 177 mg/dL (<200); Estimated Glomerular Filt Rate > 60; Glucose Fasting 91 mg/dL (60-99); HDL Cholesterol 81 mg/dL (>40); LDL Cholesterol Calculated 84 mg/dL (<100); Sodium 141 mmol/L (135-145); Triglycerides 62 mg/dL (<150)
[2024-03-20 10:51] LABS: Appearance Urine Clear; Color Urine Yellow; Glucose Urine UA Negative (Negative); Leukocyte Esterase Urine Trace (Negative); Nitrite Urine Negative (Negative); PH 6.5 (5.0-9.0); UMIC TRIGGER UACC YES; Urine Blood Trace (Negative); Urine Ketones Negative (Negative); Urine Protein Negative (Neg-Trace)
[2024-03-20 10:56] LABS: Bacteria Urine None Seen (None Seen); Hyaline Casts Urine 0-2 /LPF (0-2); Squamous Epithelial Cell Urine 0-2 /HPF (0-2); WBC Urine 0-5 /HPF (0-5)
[2024-03-20 10:58] LABS: Free T4 (Free Thyroxine) 1.06 ng/dL (0.71-1.85)
[2024-03-21 10:48] LABS: Triiodothyronine T3 Free 3.8 pg/mL (2.3-4.2)
[2024-03-21 13:14] LABS: Thyroid Peroxidase Antibodies 44 IU/mL (<9)
== END 2024-03-20 06:02 | disposition home or self-care (01) ==
LOC: HO.HMGCLDS 06:01
PROVIDERS: PCP Nurse Practitioner Family; Visit Provider Nurse Practitioner Family
DX: R79.89 Other specified abnormal findings of blood chemistry (principal); I10 Essential (primary) hypertension
CPT/HCPCS: 36415; 80053; 80061; 81001; 83520; 84439; 84443; 84481; 85025; 86376

== ENCOUNTER 2024-03-21 09:05 | Outpatient (REF) | payer MEDICARE, SELFPAY ==
[2024-03-21 09:54] LABS: Urine Cytology See Pathology rpt
[2024-03-21 10:02] LABS: Appearance Urine Clear; Color Urine Dark Yellow; Glucose Urine UA Negative (Negative); Leukocyte Esterase Urine Trace (Negative); Nitrite Urine Negative (Negative); PH 5.5 (5.0-9.0); UMIC TRIGGER UACC YES; Urine Blood Negative (Negative); Urine Ketones Trace mg/dL (Negative); Urine Protein Trace mg/dL (Neg-Trace)
[2024-03-21 10:25] LABS: Bacteria Urine None Seen (None Seen); Hyaline Casts Urine 0-2 /LPF (0-2); RBC Urine 0-2 /HPF (0-2); Squamous Epithelial Cell Urine 0-2 /HPF (0-2); WBC Urine 0-5 /HPF (0-5)
== END 2024-03-21 09:06 | disposition home or self-care (01) ==
LOC: HO.HMGCLDS 09:05
PROVIDERS: PCP Nurse Practitioner Family; Visit Provider Nurse Practitioner Family
DX: R31.29 Other microscopic hematuria (principal)
CPT/HCPCS: 81001; 81003; 87086; 87088; 87147; 87186; 88112

== ENCOUNTER 2024-03-27 07:34 | Outpatient (AMB) | payer MEDICARE, SELFPAY ==
--- NOTE | 2024-03-27 07:39 | MHC.OFFVIS ---
Vital Signs 03/27/24 07:47 Height 5 ft 1 in Weight 118 lb 9.739 oz BMI 22.4 BP 134/64 Blood Pressure Location Lt brachial Position Sitting Pulse 57 Pulse Source Pulse Oximeter Intake Visit Reasons: abnormal findings of blood chemistry-lvm Intake Note: New patient internally referred by PCP for Abormal findings of blood Chemistry, Low TSH. 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 Accompanied by: Self / Same As Patient Allergies amoxicillin Allergy (Mild, Verified 03/27/24 07:48) hives sulfamethoxazole [From Bactrim] Allergy (Mild, Verified 03/27/24 07:48) Hives trimethoprim [From Bactrim] Allergy (Mild, Verified 03/27/24 07:48) Hives Medication List - Last Reconciled 03/27/24 by Kobe Rai MD amlodipine 5 mg PO DAILY 90 days calcium carbonate-vitamin D3 600 mg-12.5 mcg (500 unit) (Calcium 600 with Vitamin D3) 1 cap PO BID 30 days rosuvastatin 10 mg PO DAILY sumatriptan succinate (Imitrex) 100 mg PO Q2-4H PRN HPI Comments Details: 68 YO F who is seen in consultation for suppressed TSH due to Graves disease. Recently diagnosed . Currently denies any dysphagia or hoarseness of voice. Denies sensation of swelling in the neck or difficulty breathing while lying flat. Denies any tenderness in the neck. Has palpitations, - tremors, -weight loss, -frequent bowel movements. Denies any ocular complaints, blurred or double vision. + smoking Denies hair loss, dry skin, heat or cold intolerance, weight gain, confusion. Denies any history of head or neck irradiation. Denies any family history of thyroid cancer. No family hx of thyroid dx No supplements with kelp or biotin Thyroid US: FINDINGS: SIZE: Measurements of the thyroid lobes and nodules are given in sagittal, anteroposterior and transverse dimensions respectively. Right Thyroid Lobe: 5.0 x 1.7 x 1.4 cm, volume 6.2 mL. Parenchyma: The gland echotexture is heterogeneous. Thyroid vascularity is increased. Left Thyroid Lobe: 3.9 x 2.1 x 1.7 cm, volume 7.3 mL. Parenchyma: The gland echotexture is heterogeneous. Thyroid vascularity is increased. Isthmus: 0.2 cm in maximum AP dimension. Estimated total number of nodules greater than or equal to 1 cm: 0. Load Mixer nodules are described as follows: 1. Location: Left inferior. Size: 0.8 x 0.6 x 0.6 cm, volume 0.13 mL. Nodule characteristics: Composition: Solid (2). Echogenicity: Hyperechoic (1). Shape: Not taller than wide (0). Margins: Smooth (0). Echogenic Foci: Punctate echogenic foci (3). ACR TI-RADS total points: 6 ACR TI-RADS category: 4 2. Location: Right mid. Size: 0.5 x 0.5 x 0.4 cm, volume 0.05 mL. Nodule characteristics: Composition: Solid (2). Echogenicity: Isoechoic (1). Shape: Not taller than wide (0). Margins: Smooth (0). Echogenic Foci: None (0). ACR TI-RADS total points: 3 ACR TI-RADS category: 3 NODES: No lymphadenopathy is seen in the tissue surrounding the thyroid gland. US/US thyroid IMPRESSION: 1. Small bilateral thyroid nodules are seen, as detailed. No specific imaging follow-up is recommended. 2. There is heterogeneous thyroid echotexture andTSH =).10 Labs: TRAB + PFSH Medical History Osteoporosis Surgical History No pertinent past surgical history Social History Housing: House Patient Tobacco Use Status: Current everyday Tobacco user Cigarettes Per Day: 4 e-Cigarette/Vaping Use: Never Used Second Hand Smoke Exposure: No service: No Current occupational status: employed Current occupation: [employer] Current occupational exposures/hazards: Yes Cognitive needs: No Hearing needs: No Vision needs: No Physical Exam Vital Signs: BMI result Body Mass Index 22.4 HEENT reveals absence of lid lag , stare or proptosis or eyebrow loss. Thyroid gland measure 15 gms . No nodules or tenderness palpated. There is no cervical adenopathy palpated. Lungs CTA. Heart S1, S2 Reg R/R -M/R/G. Abdominal exam benign. Skin exam reveals absence of dryness or thyroid dermopathy or vitiligo. Nail exam reveals absence of thyroid acropachy or oncholysis. Neurologic exam reveals 2+ reflexes . Muscle Strength is 5/5 proximally. There are no tremors in upper extremities. Assessment & Plan Assessment & Plan (1) Low TSH level: Code(s): R79.89 - Other specified abnormal findings of blood chemistry Category: Medical Plan: This is a 68-year-old white female with a history of subclinical hyperthyroidism due to Graves disease. She does have osteoporosis on DEXA. Plan is to talk to the patient about potential options including use of low-dose anti-thyroid medication versus radioactive iodine versus surgery. At this point, we discussed the idea of holding off for another 4 weeks and rechecking thyroid function studies since the TSH was recovering. I went over the different options of treatment including side effects of methimazole. Will recheck thyroid function studies in 4 weeks' time bring the patient back in 5 weeks. At that point if the TSH is still suppressed, we will consider starting a low-dose methimazole 5 mg . The other concern I have is the patient is going for a CT scan of the kidneys with iodinated contrast and this could spot greater degree of hyperthyroidism. I will communicate this to the primary care provider. If iodine contrast needs to be used, the methimazole should be initiated prior Orders: Orders Free T4 (Free Thyroxine) 4 Weeks R7 - Other specified abnormal findings of blood chemistry Triiodothyronine T3 Free 4 Weeks - Other specified abnormal findings of blood chemistry Thyroid Stimulating Hormone 4 Weeks - Other specified abnormal findings of blood chemistry Coding Level of Care Code New Pt Level 4 (58735) Diagnoses Low TSH level R7
[2024-03-27 07:47] VITALS: BP 134/64; PULSE 57; BMI 22.4
== END 2024-03-27 08:37 | disposition home or self-care (01) ==
LOC: HO.ENCR 07:35
PROVIDERS: PCP Nurse Practitioner Family; Visit Provider Internal Medicine Endocrinology, Diabetes & Metabolism
DX: R79.89 Other specified abnormal findings of blood chemistry (principal)
CPT/HCPCS: 99204

== ENCOUNTER → 2024-03-27 07:34 | Outpatient (BNVA) | payer MEDICARE, SELFPAY | PROVIDERS: PCP Nurse Practitioner Family; Visit Provider Internal Medicine Endocrinology, Diabetes & Metabolism | DX: R79.89 Other specified abnormal findings of blood chemistry (principal) | CPT/HCPCS: 99202 ==

== ENCOUNTER 2024-04-23 06:50 | Outpatient (REF) | payer MEDICARE, SELFPAY ==
[2024-04-23 09:57] LABS: Appearance Urine Clear; Color Urine Yellow; Glucose Urine UA Negative (Negative); Leukocyte Esterase Urine Trace (Negative); Nitrite Urine Negative (Negative); PH 6.5 (5.0-9.0); UMIC TRIGGER UACC YES; Urine Blood Trace (Negative); Urine Ketones Negative (Negative); Urine Protein Negative (Neg-Trace)
[2024-04-23 10:03] LABS: Bacteria Urine None Seen (None Seen); Hyaline Casts Urine 0-2 /LPF (0-2); Squamous Epithelial Cell Urine 0-2 /HPF (0-2); WBC Urine 0-5 /HPF (0-5)
[2024-04-23 10:37] LABS: Alanine Aminotransferase 25 U/L (0-31); Anion Gap 12 (12-20); Aspartate Amino Transferase 24 U/L (5-31); Bilirubin Total 0.6 mg/dL (0.0-1.0); Blood Urea Nitrogen 12 mg/dL (9-16); Calcium 9.9 mg/dL (8.4-10.2); Carbon Dioxide 26 mmol/L (22-29); Chloride 106 mmol/L (96-108); Estimated Glomerular Filt Rate > 60; Glucose Random 92 mg/dL (60-115); Sodium 140 mmol/L (135-145); Total Protein 6.8 g/dL (6.5-8.0)
[2024-04-23 10:49] LABS: Free T4 (Free Thyroxine) 1.37 ng/dL (0.71-1.85); Thyroid Stimulating Hormone < 0.01 uIU/mL (0.32-4.0)
[2024-04-23 10:57] LABS: Alkaline Phosphatase 67 U/L (39-117)
[2024-04-24 05:24] LABS: Triiodothyronine T3 Free 4.9 pg/mL (2.3-4.2)
== END 2024-04-23 06:51 | disposition home or self-care (01) ==
LOC: HO.HMGCLDS 06:50
PROVIDERS: PCP Nurse Practitioner Family; Referring Provider Internal Medicine Endocrinology, Diabetes & Metabolism; Visit Provider Nurse Practitioner Family
DX: R31.29 Other microscopic hematuria (principal); R79.89 Other specified abnormal findings of blood chemistry
CPT/HCPCS: 36415; 80053; 81001; 84439; 84443; 84481

== ENCOUNTER 2024-05-01 09:05 | Outpatient (AMB) | payer MEDICARE, SELFPAY ==
--- NOTE | 2024-05-01 09:07 | MHC.OFFVIS ---
Vital Signs 05/01/24 09:08 Height 5 ft 1 in Weight 118 lb 2.684 oz BMI 22.3 BP 130/62 Blood Pressure Location Lt brachial Position Sitting Pulse 62 Pulse Source Pulse Oximeter Intake Visit Reasons: f/u hyperthyroidism-lvm Intake Note: Patient present today for Hyperthyroidism follow up. 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 Required: No Accompanied by: Self / Same As Patient Allergies amoxicillin Allergy (Mild, Verified 05/01/24 09:11) hives sulfamethoxazole [From Bactrim] Allergy (Mild, Verified 05/01/24 09:11) Hives trimethoprim [From Bactrim] Allergy (Mild, Verified 05/01/24 09:11) Hives Medication List - Last Reconciled 05/01/24 by Kobe Rai MD amlodipine 5 mg PO DAILY 90 days calcium carbonate-vitamin D3 600 mg-12.5 mcg (500 unit) (Calcium with Vit D3) 1 cap PO BID 30 days nitrofurantoin monohyd/m-cryst 100 mg 100 mg PO Q12H 10 days rosuvastatin 10 mg PO DAILY sumatriptan succinate (Imitrex) 100 mg PO Q2-4H PRN HPI Comments Details: 68 YO F who is seen in consultation for suppressed TSH due to Graves disease. Recently diagnosed . Currently denies any dysphagia or hoarseness of voice. Denies sensation of swelling in the neck or difficulty breathing while lying flat. Denies any tenderness in the neck. Has palpitations, - tremors, -weight loss, -frequent bowel movements. Denies any ocular complaints, blurred or double vision. + smoking Denies hair loss, dry skin, heat or cold intolerance, weight gain, confusion. Denies any history of head or neck irradiation. Denies any family history of thyroid cancer. No family hx of thyroid dx No supplements with kelp or biotin Thyroid US: FINDINGS: SIZE: Measurements of the thyroid lobes and nodules are given in sagittal, anteroposterior and transverse dimensions respectively. Right Thyroid Lobe: 5.0 x 1.7 x 1.4 cm, volume 6.2 mL. Parenchyma: The gland echotexture is heterogeneous. Thyroid vascularity is increased. Left Thyroid Lobe: 3.9 x 2.1 x 1.7 cm, volume 7.3 mL. Parenchyma: The gland echotexture is heterogeneous. Thyroid vascularity is increased. Isthmus: 0.2 cm in maximum AP dimension. Estimated total number of nodules greater than or equal to 1 cm: 0. Uniform Cap Operator nodules are described as follows: 1. Location: Left inferior. Size: 0.8 x 0.6 x 0.6 cm, volume 0.13 mL. Nodule characteristics: Composition: Solid (2). Echogenicity: Hyperechoic (1). Shape: Not taller than wide (0). Margins: Smooth (0). Echogenic Foci: Punctate echogenic foci (3). ACR TI-RADS total points: 6 ACR TI-RADS category: 4 2. Location: Right mid. Size: 0.5 x 0.5 x 0.4 cm, volume 0.05 mL. Nodule characteristics: Composition: Solid (2). Echogenicity: Isoechoic (1). Shape: Not taller than wide (0). Margins: Smooth (0). Echogenic Foci: None (0). ACR TI-RADS total points: 3 ACR TI-RADS category: 3 NODES: No lymphadenopathy is seen in the tissue surrounding the thyroid gland. US/US thyroid IMPRESSION: 1. Small bilateral thyroid nodules are seen, as detailed. No specific imaging follow-up is recommended. 2. There is heterogeneous thyroid echotexture andTSH =).10 Labs: TRAB + suppressed TSH with elevated free T3 PFSH Medical History Osteoporosis Surgical History No pertinent past surgical history Social History Housing: House Patient Tobacco Use Status: Current everyday Tobacco user Cigarettes Per Day: 4 e-Cigarette/Vaping Use: Never Used Second Hand Smoke Exposure: No service: No Current occupational status: employed Current occupation: [employer] Current occupational exposures/hazards: Yes Cognitive needs: No Hearing needs: No Vision needs: No Physical Exam Vital Signs: Last Vital Signs Pulse 62 05/01/24 09:08 BP 130/62 05/01/24 09:08 BMI result Body Mass Index 22.3 Const Other: Thyroid gland is normal size weighs about 15 g . There are no thyroid nodules palpable Assessment & Plan Assessment & Plan (1) Low TSH level: Code(s): R79. - Other specified abnormal findings of blood chemistry Category: Medical Plan: This is a 68-year-old white female with a history of subclinical hyperthyroidism due to Graves disease. She does have osteoporosis on DEXA. Plan is to talk to the patient about potential options including use of low-dose anti-thyroid medication versus radioactive iodine versus surgery. After careful discussion with the patient, we decided to start anti-thyroid medication namely methimazole 10 mg. Will recheck thyroid function studies in 4 weeks' time. Went over side effects of methimazole including but not limited to a granulocytosis and liver toxicity. She is also going for contrast dye in about 3 weeks and I told her to be alert of symptoms of hyperthyroidism and let me know if she experiences any of these after the administration of contrast dye. The anti-thyroid medication should prevent increased production of thyroid hormone after incorporation of iodinated contrast Orders: Orders Free T4 (Free Thyroxine) 4 Weeks R7. - Other specified abnormal findings of blood chemistry Triiodothyronine T3 Free 4 Weeks R7 - Other specified abnormal findings of blood chemistry Thyroid Stimulating Hormone 4 Weeks R7. - Other specified abnormal findings of blood chemistry Medications: New methimazole 10 mg PO DAILY 30 tabs 0RF Coding Level of Care Code Est Pt Level 3 (99099) Diagnoses Low TSH level R7
[2024-05-01 09:08] VITALS: BP 130/62; PULSE 62; BMI 22.3
== END 2024-05-01 09:33 | disposition home or self-care (01) ==
PROVIDERS: PCP Nurse Practitioner Family; Visit Provider Internal Medicine Endocrinology, Diabetes & Metabolism
DX: R79.89 Other specified abnormal findings of blood chemistry (principal)
CPT/HCPCS: 99213

== ENCOUNTER → 2024-05-01 09:05 | Outpatient (BNVA) | payer MEDICARE, SELFPAY | PROVIDERS: PCP Nurse Practitioner Family; Visit Provider Internal Medicine Endocrinology, Diabetes & Metabolism | DX: E89.0 Postprocedural hypothyroidism (principal); E05.00 Thyrotoxicosis with diffuse goiter without thyrotoxic crisis or storm; M81.0 Age-related osteoporosis without current pathological fracture; R79.89 Other specified abnormal findings of blood chemistry | CPT/HCPCS: 99212 ==

== ENCOUNTER 2024-05-13 07:57 | Outpatient (REF) | payer MEDICARE, SELFPAY ==
[2024-05-13] MEDS: iohexoL 350 MG/ML 100 ML INFUS..BTL IV (09:22)
== END 2024-05-13 07:58 | disposition home or self-care (01) ==
LOC: HO.CT 07:57
PROVIDERS: PCP Nurse Practitioner Family; Visit Provider Nurse Practitioner Family
DX: R31.29 Other microscopic hematuria (principal); F17.200 Nicotine dependence, unspecified, uncomplicated
CPT/HCPCS: 74178; Q9967

== ENCOUNTER → 2024-05-13 08:05 | Outpatient (BNV) | payer MEDICARE, SELFPAY | PROVIDERS: PCP Nurse Practitioner Family; Visit Provider Student in an Organized Health Care Education/Training Program | DX: R31.29 Other microscopic hematuria (principal) | CPT/HCPCS: 74178 ==

== ENCOUNTER 2024-05-19 07:43 | Outpatient (REF) | payer MEDICARE, SELFPAY ==
[2024-05-19 16:46] LABS: Urine Cytology See Pathology rpt
== END 2024-05-19 07:44 | disposition home or self-care (01) ==
LOC: HO.LNP 07:43
PROVIDERS: PCP Nurse Practitioner Family; Visit Provider Nurse Practitioner Family
DX: R31.29 Other microscopic hematuria (principal); F17.200 Nicotine dependence, unspecified, uncomplicated
CPT/HCPCS: 81003; 88112; 99202

== ENCOUNTER 2024-05-19 07:43 | Outpatient (AMB) | payer MEDICARE, SELFPAY ==
--- NOTE | 2024-05-19 08:21 | A.OFFVIS_ITS ---
Intake Visit Reasons: microscopic hematuria Intake Note: New Patient presents for initial visit for microscopic hematuria Urology Medications: none Blood Thinner: none Smoker: yes, at least 10yrs Counsellors Required: No Accompanied by: Self / Same As Patient Allergies amoxicillin Allergy (Mild, Verified 05/19/24 08:42) hives sulfamethoxazole [From Bactrim] Allergy (Mild, Verified 05/19/24 08:42) Hives trimethoprim [From Bactrim] Allergy (Mild, Verified 05/19/24 08:42) Hives Medication List - Last Reconciled 05/19/24 by TOBI Benítez- amlodipine 5 mg PO DAILY 90 days calcium carbonate-vitamin D3 600 mg-12.5 mcg (500 unit) (Calcium with Vit D3) 1 cap PO BID 30 days rosuvastatin 10 mg PO DAILY sumatriptan succinate (Imitrex) 100 mg PO Q2-4H PRN HPI Comments Details: Jenifer is a 68-year-old female patient of Dr. Dove. She has a past medical history of nicotine dependence and osteoporosis. She presents to the office today as a new patient for microscopic hematuria in the setting of n icotine dependence. She reports having followed up with her PCP at which time microscopic hematuria was noted and recommendations were made for urology referral for further assessment evaluation. It appears CT urogram was ordered and performed however results remain pending. When asked she does report over a 10 year history of nicotine dependence. She currently smokes approximately 4 cigarettes per day however previously smoked a pack per day. 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 When asked she denies any bothersome urinary issues. She denies urinary urgency, urinary frequency, incontinence, nocturia, gross/visible hematuria, dysuria, foul smelling urine, changes to urinary stream, flank pain, fever, and or chills. She is happy with her current voiding parameters. In office urinalysis results reviewed with the patient today 2+ microscopic hematuria. We discussed at length potential causes of microscopic hematuria as well as further workup to include in office cystoscopy. In review of patient's chart it appears cytology 03/20 Negative for high-grade urothelial carcinoma. We discussed reasons for blood in the urine may include but are not limited to kidney stones, cancer in the urinary tract, kidney stone disease or inflammatory conditions of the urinary tract. She otherwise offers no other issues or concerns at this time. [facility] Medical History Osteoporosis Surgical History No pertinent past surgical history Social History Housing: House Patient Tobacco Use Status: Current everyday Tobacco user Cigarettes Per Day: 4 e-Cigarette/Vaping Use: Never Used Second Hand Smoke Exposure: No service: No Current occupational status: employed Current occupation: [employer] Current occupational exposures/hazards: Yes Cognitive needs: No Hearing needs: No Vision needs: No Review of Systems Const All systems reviewed & are unremarkable except as noted in HPI and below Physical Exam Const General: cooperative, healthy appearing, comfortable, no acute distress, well developed, alert and awake Nutritional Appearance: thin Orientation/consciousness: patient oriented x3 Limitations: no limitations HEENT Head: Yes normal to inspection, Yes normocephalic and Yes atraumatic Ears: hearing grossly normal bilaterally Eyes General: appearance normal, both eyes and all related structures Neck Neck: Yes normal visual inspection and Yes trachea midline Chest Chest palpation & inspection: normal inspection of the chest Resp Effort & Inspection: normal respiratory effort and able to speak in complete sentences Cardio Rate: regular rate GI Inspection: Yes normal to inspection General: Yes no CVA tenderness Back/Spine/Pelvis Back: no CVA tenderness Skin General skin exam: no rashes or lesions noted Neuro General: patient oriented x3 Extrem General: Yes normal to inspection Psych Appearance: grossly normal and well kempt Mental Status: mental status grossly normal Speech and movement: Normal speech and movement present and Clear speech present Affect: normal affect Attitude: cooperative Thought process: Normal thought process present Thought content: Normal thought content present Insight: Fair insight present (Psych) Judgement: Fair judgement present (Psych) Results AMB Urinalysis, Automated UA Leukoctes 0 Blake/uL Last Edit by Romina Jessicass on 05/19/24 08:34 UA Nitrite Last Edit by Romina Lopezss on 05/19/24 08:34 UA Urobilinogen 0.2 mg/dL Last Edit by Geneycfaby Larry on 05/19/24 08:34 UA Protein 15 mg/dL Last Edit by Geneycfaby Larry on 05/19/24 08:34 UA pH 6.0 Last Edit by Geneycfaby Larry on 05/19/24 08:34 UA Blood 80 Shayan/uL Last Edit by Geneyce Laron on 05/19/24 08:34 UA Specific Clinton 1.020 Last Edit by Romina Larry on 05/19/24 08:34 UA Ketone Last Edit by Romina Larry on 05/19/24 08:34 UA Bilirubin 0 mg/dL Last Edit by Romina Larry on 05/19/24 08:34 UA Glucose 0 mg/dL Last Edit by Romina Larry on 05/19/24 08:34 Results Reviewed Results Reviewed: Laboratory Last Values Urine pH (Auto) 6.0 05/19/24 08:31 Specific Clinton (Auto) 1.020 05/19/24 08:31 Urine Protein (Auto) 15 mg/dL 05/19/24 08:31 Glucose (UA)(Auto) 0 mg/dL 05/19/24 08:31 Urine Blood (Auto) 80 Shayan/uL 05/19/24 08:31 Urine Bilirubin (Auto) 0 mg/dL 05/19/24 08:31 Urine Urobilinogen (Auto) 0.2 mg/dL 05/19/24 08:31 Leukocyte Esterase (Auto) 0 Blake/uL 05/19/24 08:31 Assessment & Plan Assessment & Plan (1) Microhematuria: Code(s): R31.29 - Other microscopic hematuria Category: Medical (2) Smoker: Code(s): F17.200 - Nicotine dependence, unspecified, uncomplicated Category: Social Hx Plan In office urinalysis results reviewed with the patient today; as noted above; will send for urine cytology. CT urogram remains pending. We discussed at length potential causes of microscopic hematuria as well as further workup to include in office cystoscopy. She currently denies any bothersome urinary issues. She reports be happy with current voiding parameters. We discussed further workup versus surveillance monitoring and risks and benefits of these interventions. All questions were answered. Information provided regarding in office cystoscopy. Follow-up next available in office cystoscopy; or sooner with any issues, concerns, and or questions. Orders: Orders Urine Cytology Today R31.29 - Other microscopic hematuria AMB Urinalysis Automated Today Z13.9 - Encounter for screening, unspecified Patient Instructions: The patient had an opportunity to ask questions regarding the treatment plan. All questions were answered. Physical exam, labs, and imaging were discussed and reviewed in detail. As well as risks, benefits, and discussion of treatment choices. No major barriers to understanding were identified. The patient expressed understanding and agreement with the above treatment plan. The patient was made aware they should contact our office by phone for worsening of their current condition, the appearance of new symptoms, or with any questions or concerns. Compliance is encouraged with any medications and follow up testing that is ordered. It is a privilege to be allowed the opportunity to participate in? your urological care.? Again, if you have any questions or concerns If you have any questions or concerns please do not hesitate to contact me. The office is [phone]. This note is constructed using voice recognition software. While every effort has been made to ensure accuracy paver layer errors may have been included. Yours sincerely, DELVIN Benítez Coding Level of Care Code New Pt Level 3 (22707) Diagnoses Microhematuria R31.29 Smoker F17.200
== END 2024-05-19 08:41 | disposition home or self-care (01) ==
PROVIDERS: PCP Nurse Practitioner Family; Visit Provider Nurse Practitioner Family
DX: R31.29 Other microscopic hematuria (principal); F17.200 Nicotine dependence, unspecified, uncomplicated; Z13.9 Encounter for screening, unspecified
CPT/HCPCS: 99203

== ENCOUNTER 2024-06-07 06:35 | Outpatient (REF) | payer MEDICARE, SELFPAY ==
[2024-06-07 11:58] LABS: Free T4 (Free Thyroxine) 1.19 ng/dL (0.71-1.85); Thyroid Stimulating Hormone 0.06 uIU/mL (0.32-4.0)
[2024-06-08 08:08] LABS: Triiodothyronine T3 Free 4.3 pg/mL (2.3-4.2)
== END 2024-06-07 06:36 | disposition home or self-care (01) ==
LOC: HO.HMGCLDS 06:35
PROVIDERS: PCP Nurse Practitioner Family; Visit Provider Internal Medicine Endocrinology, Diabetes & Metabolism
DX: R79.89 Other specified abnormal findings of blood chemistry (principal)
CPT/HCPCS: 36415; 84439; 84443; 84481

== ENCOUNTER 2024-06-12 08:43 | Outpatient (AMB) | payer MEDICARE, SELFPAY ==
--- NOTE | 2024-06-12 08:46 | A.OFFVIS_ITS ---
Vital Signs 06/12/24 08:50 Height 5 ft 1 in Weight 115 lb 8.356 oz BMI 21.8 BP 126/62 Blood Pressure Location Rt brachial Position Sitting Pulse 66 Pulse Source Pulse Oximeter Intake Visit Reasons: f/u hyperthyroidism Intake Note: Patient present today for Hyperthyroidism follow up. Theater Usher Required: No Accompanied by: Self / Same As Patient Allergies amoxicillin Allergy (Mild, Verified 06/12/24 08:51) hives sulfamethoxazole [From Bactrim] Allergy (Mild, Verified 06/12/24 08:51) Hives trimethoprim [From Bactrim] Allergy (Mild, Verified 06/12/24 08:51) Hives Medication List - Last Reconciled 06/12/24 by Kobe Rai MD amlodipine 5 mg PO DAILY 90 days calcium carbonate-vitamin D3 600 mg-12.5 mcg (500 unit) (Calcium with Vit D3) 1 cap PO BID 30 days methimazole 10 mg PO DAILY rosuvastatin 10 mg PO DAILY sumatriptan succinate (Imitrex) 100 mg PO Q2-4H PRN HPI Comments Details: 68 YO F who is seen in consultation for suppressed TSH due to Graves disease. Recently diagnosed . Currently denies any dysphagia or hoarseness of voice. Denies sensation of swelling in the neck or difficulty breathing while lying flat. Denies any tenderness in the neck. Has palpitations, - tremors, -weight loss, -frequent bowel movements. Denies any ocular complaints, blurred or double vision. + smoking Denies hair loss, dry skin, heat or cold intolerance, weight gain, confusion. Denies any history of head or neck irradiation. Denies any family history of thyroid cancer. No family hx of thyroid dx No supplements with kelp or biotin Thyroid US: FINDINGS: SIZE: Measurements of the thyroid lobes and nodules are given in sagittal, anteroposterior and transverse dimensions respectively. Right Thyroid Lobe: 5.0 x 1.7 x 1.4 cm, volume 6.2 mL. Parenchyma: The gland echotexture is heterogeneous. Thyroid vascularity is increased. Left Thyroid Lobe: 3.9 x 2.1 x 1.7 cm, volume 7.3 mL. Parenchyma: The gland echotexture is heterogeneous. Thyroid vascularity is increased. Isthmus: 0.2 cm in maximum AP dimension. Estimated total number of nodules greater than or equal to 1 cm: 0. Tooth Cutter Pinion nodules are described as follows: 1. Location: Left inferior. Size: 0.8 x 0.6 x 0.6 cm, volume 0.13 mL. Nodule characteristics: Composition: Solid (2). Echogenicity: Hyperechoic (1). Shape: Not taller than wide (0). Margins: Smooth (0). Echogenic Foci: Punctate echogenic foci (3). ACR TI-RADS total points: 6 ACR TI-RADS category: 4 2. Location: Right mid. Size: 0.5 x 0.5 x 0.4 cm, volume 0.05 mL. Nodule characteristics: Composition: Solid (2). Echogenicity: Isoechoic (1). Shape: Not taller than wide (0). Margins: Smooth (0). Echogenic Foci: None (0). ACR TI-RADS total points: 3 ACR TI-RADS category: 3 NODES: No lymphadenopathy is seen in the tissue surrounding the thyroid gland. US/US thyroid IMPRESSION: 1. Small bilateral thyroid nodules are seen, as detailed. No specific imaging follow-up is recommended. 2. There is heterogeneous thyroid echotexture andTSH =).10 Labs: TRAB + suppressed TSH with elevated free T3 consistent with Graves disease. Currently on methimazole 10 mg. Missed several doses PFSH Medical History Osteoporosis Surgical History No pertinent past surgical history Social History Housing: House Patient Tobacco Use Status: Current everyday Tobacco user Cigarettes Per Day: 4 e-Cigarette/Vaping Use: Never Used Second Hand Smoke Exposure: No service: No Current occupational status: employed Current occupation: [employer] Current occupational exposures/hazards: Yes Cognitive needs: No Hearing needs: No Vision needs: No Physical Exam Vital Signs: Last Vital Signs Pulse 66 06/12/24 08:50 BP 126/62 06/12/24 08:50 BMI result Body Mass Index 21.8 Const Other: Thyroid gland is normal size weighs about 15 g . There are no thyroid nodules palpable Assessment & Plan Assessment & Plan (1) Low TSH level: Code(s): R7. - Other specified abnormal findings of blood chemistry Category: Medical Plan: This is a 68-year-old white female with a history of hyperthyroidism due to Graves disease. She does have osteoporosis on DEXA. She is currently on methimazole 10 mg q.d. her free T3 remains slightly elevated Plan is to continue the current dose of 10 mg of methimazole but stressed compli ance with the methimazole Will recheck thyroid function studies in 4 weeks' time. We will talk to patient about different options of treatment including definitive therapy radioactive iodine or surgery we will continuation of anti- thyroid medication. The patient is opting to stay on the methimazole at the current Orders: Orders Thyroid Stimulating Hormone 4 Weeks R7. - Other specified abnormal findings of blood chemistry Free T4 (Free Thyroxine) 4 Weeks R7 - Other specified abnormal findings of blood chemistry Triiodothyronine T3 Free 4 Weeks - Other specified abnormal findings of blood chemistry Coding Level of Care Code Est Pt Level 3 (81582) Diagnoses Low TSH level
[2024-06-12 08:50] VITALS: BP 126/62; PULSE 66; BMI 21.8
== END 2024-06-12 09:30 | disposition home or self-care (01) ==
PROVIDERS: PCP Nurse Practitioner Family; Visit Provider Internal Medicine Endocrinology, Diabetes & Metabolism
DX: R79.89 Other specified abnormal findings of blood chemistry (principal)
CPT/HCPCS: 99213

== ENCOUNTER → 2024-06-12 08:43 | Outpatient (BNVA) | payer MEDICARE, SELFPAY | PROVIDERS: PCP Nurse Practitioner Family; Visit Provider Internal Medicine Endocrinology, Diabetes & Metabolism | DX: E05.00 Thyrotoxicosis with diffuse goiter without thyrotoxic crisis or storm (principal); R79.89 Other specified abnormal findings of blood chemistry | CPT/HCPCS: 99212 ==

== ENCOUNTER 2024-06-23 14:05 | Outpatient (REF) | payer MEDICARE, SELFPAY ==
--- NOTE | ~2024-06-23 | US_ITS ---
EXAMINATION: US PELVIS TRANSABDOMINAL AND TRANSVAGINAL HISTORY: N94.89 - adnexal mass COMPARISON: Correlation is made with a CT of the pelvis dated 05/13/2024. TECHNIQUE: Transabdominal and endovaginal real-time 2D lopez-scale ultrasound was performed. FINDINGS: Uterus: The uterus is normal in size, measuring 5.8 x 2.3 x 3.8 cm. Myometrium has a normal echotexture. No fibroids are identified. Endometrium: The endometrial stripe measures 2 mm in thickness. There is fluid in the endometrial canal. Right ovary: The right ovary measures 3.3 x 1.9 x 3.5 cm. There is a heterogeneous 3.2 x 1 2.0 by 2.2 cm hypoechoic solid-appearing nodule and a 1.7 x 1.8 x 1.9 cm cystic component. Left ovary: The left ovary measures 4.8 x 3.6 x 3.7 cm. There is a 1.6 x 1.7 x 1.6 cm hypoechoic solid nodule in the 1.7 x 1.6 x 1.4 cm cystic area. Pelvic fluid: none. US/US pelvic and transvaginal IMPRESSION: 1. Both ovaries are abnormal in appearance demonstrating hypoechoic nodular components as well as cystic portions. 2. Fluid in the endometrial canal. 3. 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 Electronically signed by: Kobe Rivera MD 06/23/2024 03:49 PM [facility] [place]
== END 2024-06-23 14:06 | disposition home or self-care (01) ==
LOC: HO.HMGCX 14:05
PROVIDERS: PCP Nurse Practitioner Family; Visit Provider Nurse Practitioner Family
DX: N94.89 Other specified conditions associated with female genital organs and menstrual cycle (principal)
CPT/HCPCS: 76830; 76856

== ENCOUNTER → 2024-06-23 14:08 | Outpatient (BNV) | payer MEDICARE, SELFPAY | PROVIDERS: PCP Nurse Practitioner Family; Visit Provider Radiology Diagnostic Radiology | DX: N83.291 Other ovarian cyst, right side (principal); N83.292 Other ovarian cyst, left side; N85.8 Other specified noninflammatory disorders of uterus | CPT/HCPCS: 76830; 76856 ==

== ENCOUNTER 2024-07-08 10:45 | Outpatient (AMB) | payer MEDICARE, SELFPAY ==
[2024-07-08 10:59] VITALS: BP 138/84; BMI 22.3
--- NOTE | 2024-07-08 10:59 | MHC.OFFVIS ---
Vital Signs 07/08/24 10:59 Height 5 ft 1 in Weight 118 lb BMI 22.3 BP 138/84 Intake Visit Reasons: Disorder of Ovary Bar Pointer Required: No Information Interpreted: non-clinical & clinical Accompanied by: Self / Same As Patient Allergies amoxicillin Allergy (Mild, Verified 07/08/24 11:02) hives sulfamethoxazole [From Bactrim] Allergy (Mild, Verified 07/08/24 11:02) Hives trimethoprim [From Bactrim] Allergy (Mild, Verified 07/08/24 11:02) Hives Post menopausal: Yes HPI Comments Details: Presenting referred from PCP regarding abnormal ovaries on ultrasound and CT urogram 06/17/2024 CT abdomen and pelvis with IV contrast showed the following: IMPRESSION: Normal CT urogram. Complex appearing adnexal structures measuring 5.3 cm on the left and 4.4 cm on the right. A pelvic ultrasound is recommended for further evaluation. 06/23/2024 pelvic ultrasound showed the following: Uterus: The uterus is normal in size, measuring 5.8 x 2.3 x 3.8 cm. Myometrium has a normal echotexture. No fibroids are identified. Endometrium: The endometrial stripe measures 2 mm in thickness. There is fluid in the endometrial canal. Right ovary: The right ovary measures 3.3 x 1.9 x 3.5 cm. There is a heterogeneous 3.2 x 1 2.0 by 2.2 cm hypoechoic solid-appearing nodule and a 1.7 x 1.8 x 1.9 cm cystic component. Left ovary: The left ovary measures 4.8 x 3.6 x 3.7 cm. There is a 1.6 x 1.7 x 1.6 cm hypoechoic solid nodule in the 1.7 x 1.6 x 1.4 cm cystic area. Pelvic fluid: none. Last mammogram in 08/18 was BI-RADS 1 [facility] Medical History Osteoporosis Surgical History H/O tubal ligation Family History Mother Breast cancer Sister Breast cancer Social History Household Members: Spouse Housing: House Alcohol intake: never Patient Tobacco Use Status: Current everyday Tobacco user Cigarettes Per Day: 4 e-Cigarette/Vaping Use: Never Used Second Hand Smoke Exposure: No service: No Current occupational status: employed Current occupation: [employer] Current occupational exposures/hazards: Yes Sexually active: Yes Sexual orientation: Straight/Heterosexual Gender identity: Female Cognitive needs: No Hearing needs: No Vision needs: No Physical Exam Vital Signs: Last Vital Signs BP 138/84 07/08/24 10:59 BMI result Body Mass Index 22.3 Assessment & Plan Assessment & Plan (1) Complex cyst of both ovaries: Code(s): N83.291 - Other ovarian cyst, right side; N83.292 - Other ovarian cyst, left side Category: Medical Plan: Discussed with the patient the finding on CT abdomen and pelvis with IV contrast and pelvic ultrasound, the differential diagnosis discussed with the patient include benign, premalignant or malignant ovarian pathology. CA 125, CEA , CA 19-9 ordered Director Of Officiating Oncology referral placed to Dr. Staley at [facility]. Instructed the patient to call our office back in case a referral appointment is not scheduled, missed or canceled so that we will assist on rescheduling another appointment, the patient verbalized understanding agreed with the plan. Orders: Orders Carcinoembryonic Antigen Today N83.299 - Other ovarian cyst, unspecified side CA-125 Today N83.299 - Other ovarian cyst, unspecified side Carbohydrate Antigen 19-9 Today N83.299 - Other ovarian cyst, unspecified side Referrals Gynecologic Oncology Referral N83.291 - Other ovarian cyst, right side, N83.292 - Other ovarian cyst, left side Coding Level of Care Code New Pt Level 3 (38539) Diagnoses Complex cyst of both ovaries N83.291; N83.292
== END 2024-07-08 11:49 | disposition home or self-care (01) ==
LOC: HO.HWS 10:45
PROVIDERS: PCP Nurse Practitioner Family; Visit Provider Obstetrics & Gynecology
DX: N83.291 Other ovarian cyst, right side (principal); N83.292 Other ovarian cyst, left side
CPT/HCPCS: 99203

== ENCOUNTER 2024-07-08 10:45 | Outpatient (REF) | payer MEDICARE, SELFPAY ==
[2024-07-08 14:27] LABS: Free T4 (Free Thyroxine) 0.93 ng/dL (0.71-1.85); Thyroid Stimulating Hormone 1.46 uIU/mL (0.32-4.0)
[2024-07-10 09:23] LABS: Carbohydrate Antigen 19-9 13 U/mL (<34)
[2024-07-10 10:23] LABS: CA-125 3 U/mL (<35)
== END 2024-07-08 10:46 | disposition home or self-care (01) ==
LOC: HO.LAB 10:45
PROVIDERS: Absent Provider Internal Medicine Endocrinology, Diabetes & Metabolism; PCP Nurse Practitioner Family; Visit Provider Obstetrics & Gynecology
DX: N83.291 Other ovarian cyst, right side (principal); N83.292 Other ovarian cyst, left side; R94.6 Abnormal results of thyroid function studies
CPT/HCPCS: 36415; 82378; 84439; 84443; 84481; 86301; 86304; 99202

== ENCOUNTER 2024-08-25 08:33 | Outpatient (AMB) | payer MEDICARE, SELFPAY ==
--- NOTE | 2024-08-25 08:40 | A.OFFVIS_ITS ---
Vital Signs 08/25/24 08:43 Height 5 ft 1 in Weight 120 lb 13.013 oz BMI 22.8 BP 116/54 L Blood Pressure Location Lt brachial Position Sitting Pulse 61 Pulse Source Pulse Oximeter Pulse Oximetry (%) 96 Oxygen Delivery Method Room Air Intake Visit Reasons: f/u hyperthyroidism Intake Note: Patient present today for Hyperthyroidism follow up. Head Of Operation And Logistics Required: No Accompanied by: Self / Same As Patient Allergies amoxicillin Allergy (Mild, Verified 08/25/24 08:43) hives sulfamethoxazole [From Bactrim] Allergy (Mild, Verified 08/25/24 08:43) Hives trimethoprim [From Bactrim] Allergy (Mild, Verified 08/25/24 08:43) Hives Medication List - Last Reconciled 08/25/24 by Kobe Rai MD amlodipine 5 mg PO DAILY 90 days calcium carbonate-vitamin D3 600 mg-12.5 mcg (500 unit) (Calcium with Vit D3) 1 cap PO BID 30 days methimazole 10 mg PO DAILY rosuvastatin 10 mg PO DAILY HPI Comments Details: 68 YO F who is seen in consultation for suppressed TSH due to Graves disease. Recently diagnosed . Currently denies any dysphagia or hoarseness of voice. Denies sensation of swelling in the neck or difficulty breathing while lying flat. Denies any tenderness in the neck. Has palpitations, - tremors, -weight loss, -frequent bowel movements. Denies any ocular complaints, blurred or double vision. + smoking Denies hair loss, dry skin, heat or cold intolerance, weight gain, confusion. Denies any history of head or neck irradiation. Denies any family history of thyroid cancer. No family hx of thyroid dx No supplements with kelp or biotin Thyroid US: FINDINGS: SIZE: Measurements of the thyroid lobes and nodules are given in sagittal, anteroposterior and transverse dimensions respectively. Right Thyroid Lobe: 5.0 x 1.7 x 1.4 cm, volume 6.2 mL. Parenchyma: The gland echotexture is heterogeneous. Thyroid vascularity is increased. Left Thyroid Lobe: 3.9 x 2.1 x 1.7 cm, volume 7.3 mL. Parenchyma: The gland echotexture is heterogeneous. Thyroid vascularity is increased. Isthmus: 0.2 cm in maximum AP dimension. Estimated total number of nodules greater than or equal to 1 cm: 0. Dispatcher Maintenance nodules are described as follows: 1. Location: Left inferior. Size: 0.8 x 0.6 x 0.6 cm, volume 0.13 mL. Nodule characteristics: Composition: Solid (2). Echogenicity: Hyperechoic (1). Shape: Not taller than wide (0). Margins: Smooth (0). Echogenic Foci: Punctate echogenic foci (3). ACR TI-RADS total points: 6 ACR TI-RADS category: 4 2. Location: Right mid. Size: 0.5 x 0.5 x 0.4 cm, volume 0.05 mL. Nodule characteristics: Composition: Solid (2). Echogenicity: Isoechoic (1). Shape: Not taller than wide (0). Margins: Smooth (0). Echogenic Foci: None (0). ACR TI-RADS total points: 3 ACR TI-RADS category: 3 NODES: No lymphadenopathy is seen in the tissue surrounding the thyroid gland. US/US thyroid IMPRESSION: 1. Small bilateral thyroid nodules are seen, as detailed. No specific imaging follow-up is recommended. 2. There is heterogeneous thyroid echotexture andTSH =).10 Labs: TRAB + suppressed TSH with elevated free T3 consistent with Graves disease. Currently on methimazole 10 mg. 2 wks post-op hysterectomy [facility] Medical History (Updated 07/08/24 @ 11:12 by Jim Burgess MD) Osteoporosis Surgical History History of partial hysterectomy H/O tubal ligation Family History Mother Breast cancer Sister Breast cancer Social History Household Members: Spouse Housing: House Alcohol intake: never Patient Tobacco Use Status: Current everyday Tobacco user Cigarettes Per Day: 4 e-Cigarette/Vaping Use: Never Used Second Hand Smoke Exposure: No service: No Current occupational status: employed Current occupation: [employer] Current occupational exposures/hazards: Yes Sexual orientation: Straight/Heterosexual Gender identity: Female Cognitive needs: No Hearing needs: No Vision needs: No Physical Exam Vital Signs: Last Vital Signs Pulse 61 08/25/24 08:43 BP 116/54 L 08/25/24 08:43 Pulse Ox 96 08/25/24 08:43 Oxygen Delivery Method Room Air 08/25/24 08:43 BMI result Body Mass Index 22.8 Const Other: Thyroid gland is normal size weighs about 15 g . There are no thyroid nodules palpable Assessment & Plan Assessment & Plan (1) Low TSH level: Code(s): R79.89 - Other specified abnormal findings of blood chemistry Category: Medical Plan: This is a 68-year-old white female with a history of hyperthyroidism due to Graves disease. . She is currently on methimazole 10 mg q.d. She appears to be clinically and biochemically euthyroid. Plan is to continue the current dose of 10 mg of methimazole but stressed compliance with the methimazole We will talk to patient about different options of treatment including definitive therapy radioactive iodine or surgery we will continuation of anti-thyroid medication. The patient is opting to stay on the methimazole at the current Orders: Orders Triiodothyronine T3 Free 6 Months - Other specified abnormal findings of blood chemistry Free T4 (Free Thyroxine) 6 Months - Other specified abnormal findings of blood chemistry Thyroid Stimulating Hormone 6 Months - Other specified abnormal findings of blood chemistry Thyrotropin Receptor Antibody 6 Months - Other specified abnormal findings of blood chemistry Coding Level of Care Code Est Pt Level 3 (43967) Diagnoses Low TSH level
[2024-08-25 08:43] VITALS: BP 116/54; PULSE 61; O2SAT 96; BMI 22.8
== END 2024-08-25 09:01 | disposition home or self-care (01) ==
LOC: HO.ENCR 08:34
PROVIDERS: PCP Nurse Practitioner Family; Visit Provider Internal Medicine Endocrinology, Diabetes & Metabolism
DX: R79.89 Other specified abnormal findings of blood chemistry (principal)
CPT/HCPCS: 99213

== ENCOUNTER → 2024-08-25 08:33 | Outpatient (BNVA) | payer MEDICARE, SELFPAY | PROVIDERS: PCP Nurse Practitioner Family; Visit Provider Internal Medicine Endocrinology, Diabetes & Metabolism | DX: R79.89 Other specified abnormal findings of blood chemistry (principal) | CPT/HCPCS: 99212 ==

== ENCOUNTER 2024-09-03 08:25 | Outpatient (REF) | payer MEDICARE, SELFPAY ==
--- OUTSIDE RECORDS SUMMARY | 2024-09-03 08:36 | XMS_ITS | Clinical Summary ---
Author Organization [facility] Address [address] [place] [address] Phone Care Team Providers Care Mold Construction Supervisor Name Role Phone Gerald Last NP Primary Care Provider [phone] Allergies Active Allergy Reactions Criticality Noted Date Comments Amoxicillin Trihydrate Hives 05/03/2005 Sulfamethoxazole-Trimethoprim Hives 2009 Medications amLODIPine (NORVASC) 5 mg tablet Take 1 tablet (5 mg total) by mouth 1 (one) time each day. 05/24/2024 Active rosuvastatin (CRESTOR) 10 mg tablet Take 1 tablet (10 mg total) by mouth 1 (one) time each day. 05/01/2024 Active methIMAzole (TAPAZOLE) 10 mg tablet Take 1 tablet (10 mg total) by mouth 1 (one) time each day. 06/30/2024 Active CALCIUM CARBONATE-VITAM IN D3 ORAL Take by mouth 1 (one) time each day. Active acetaminophen (TYLENOL) 500 mg tablet Take 2 tablets (1,000 mg total) by mouth every 8 (eight) hours. 30 tablet 08/11/2024 Active oxyCODONE (OXY-IR) 5 mg immediate release capsule Take 1 capsule (5 mg total) by mouth every 6 (six) hours if needed for severe pain. Max Daily Amount: 20 mg 12 capsule 08/11/2024 Active docusate sodium (COLACE) 100 mg capsule Take 1 capsule (100 mg total) by mouth 1 (one) time each day. 7 each 08/11/2024 Active Active Problems Problem Noted Date Diagnosed Date Current every day smoker Hypercholesterolemia Hypertension Hyperthyroidism Resolved Problems Problem Noted Date Diagnosed Date Resolved Date Bilateral tubo-ovarian mass 07/22/2024 08/11/2024 Encounters Date Type Department Care Team Description 08/21/2024 10:40 AM EDT Office Visit [address] [phone] Eric Staley MD 08/11/2024 7:53 AM EDT Anesthesia Event [address] [address] [facility] Apodaca [facility] 08/11/2024 7:30 AM EDT - 08/11/2024 10:30 AM EDT Surgery [address] [address] Eric Staley MD Davinci assisted laparoscopic bilateral salpingo-oophorectom y [[id number] (CPT??)] 08/11/2024 5:47 AM EDT - 08/11/2024 12:15 PM EDT Hospital Encounter [address] [address] Eric Staley MD Bilateral tubo-ovarian mass Discharge Disposition: Home or Self Care 07/23/2024 8:28 AM EST - 07/23/2024 11:59 PM EST Hospital Encounter [facility] Xray [address] [place] [phone] Bilateral tubo-ovarian mass Discharge Disposition: Home or Self Care 07/22/2024 1:20 PM EST Consult [address] [address] Eric Staley MD Bilateral tubo-ovarian mass (Primary Dx) from Last 3 Months Surgical History Surgery Date Site/Laterality Comments TUBAL LIGATION 05/28/1985 - 05/27/1986 Medical History Medical History Date Comments Hypertension Hyperthyroidism Hypercholesterolemia Current every day smoker Joint pain Family History Medical History Relation Name Comments Brain cancer Other 1 Paternal Aunt Brain cancer Other 2 Paternal Uncle Breast cancer Other 3 Maternal Aunt Breast cancer Sister 1 Metastatic Leukemia Sister 2 Relation Name Status Comments Other 1 Other 2 Other 3 Sister 1 Sister 2 Social History Tobacco Use Types Packs/Day Years Used Date Smoking Tobacco: Every Day Cigarettes Tobacco Cessation:Ready to Q uit: Not Asked; Counseling Given: Not Answered Alcohol Use Standard Drinks/Week Comments Not Currently 0 (1 standard drink = 0.6 oz pur e alcohol) Interpersonal Safety Answer Date Record ed Physical Abuse 08/11/2024 Verbal Abuse 08/11/2024 Comments No Sex and Gender Information Value Date Recorded Sex Assigned at Female 08/08/2024 1:39 PM EDT Legal Sex Female 10:02 AM EST Gender Identity Female 08/08/2024 1:39 PM EDT Sexual Orientation Straight 08/08/2024 1: 39 PM EDT Obstetrics History Last Filed Vital Signs Vital Sign Reading Time Taken Comments Blood Pressure 143/72 08/21/2024 10:57 AM EDT Pulse 63 08/21/2024 10:57 AM EDT Temperature 36.4 ??C (97.6 ??F) 08/21/2024 10:57 AM E DT Respiratory Rate 18 08/11/2024 11:06 AM EDT Oxygen Saturation 99% 08/11/2024 11:06 AM EDT Inhaled Oxygen Concentration - - Weight 53.5 kg (118 lb) 08/11/2024 6:30 AM EDT Height 154.9 cm (5' 1 ) 08/11/2024 6:30 AM EDT Body Mass Index 22.3 08/11/2024 6:30 AM EDT Plan of Treatment Health Maintenance Due Date Last Done Comments DTaP,Tdap,and Td Vaccines (1 - Tdap) 10/15/1974 Zoster Vaccines (1 of 2) 10/15/1974 Breast Cancer Screening 11/07/2018 11/07/2016 COVID-19 Vaccine (3 2023-2 5 season) 2024 05/17/2021, 09/02/2020 Cholesterol Screening (Lipid Panel) 03/05/2024 Colorectal Cancer Screening: Colonoscopy 03/05/2024 Depression Screening 03/05/2024 Hepatitis C Screening 03/05/2024 Medicare Annual Wellness Visit 03/05/2024 Osteoporosis Screening (Bone Density Screening) 03/05/2024 Social Influencers of Health Screening 03/05/2024 Influenza Vaccine (Season Ended) 2025 Hypertension/CHF/CAD Annual BMP Blood Test 08/05/2025 08/05/2024 Falls Risk Assessment 08/11/2025 08/11/2024 RSV Immunization Adult Patients (1 - 1-dose 75+ series) 10/15/2030 Pneumococcal Vaccine: 50+ Years Completed 08/22/2022, 05/24/2022 HIB Vaccines Aged Out No longer eligi ble based on patient's age to complete this topic HPV Vaccines Aged Out No longer eligi ble based on patient's age to complete this topic Hepatitis A Vaccines Aged Out No long er eligible based on patient's age to complete this topic Hepatitis B Vaccines Aged Out No long er eligible based on patient's age to complete this topic IPV Vaccines Aged Out No longer eligi ble based on patient's age to complete this topic MMR Vaccines Aged Out No longer eligi ble based on patient's age to complete this topic Meningococcal ACWY Vaccine Aged Out N o longer eligible based on patient's age to complete this topic Meningococcal B Vaccine Aged Out No l onger eligible based on patient's age to complete this topic RSV Immunization Patients Under 20 months Aged Out No longer eligible b ased on patient's age to complete this topic Varicella Vaccines Aged Out No longer eligible based on patient's age to complete this topic Procedures Procedure Name Priority Date/Time Associated Diagnosis Comments TISSUE EXAM Routine 08/11/2024 9:10 AM EDT Bilateral tubo-ovarian mass NON-GYNECOLOGIC CYTOLOGY Routine 08/11/2024 8:39 AM EDT Bilateral tubo-ovarian mass TH AN ENDOTRACHEAL(NO CHARGE) Routine 08/11/2024 8:17 AM EDT UT LAP SURG W REM ADNEXAL STRUCTURES 08/11/2024 7:53 AM EDT Benign neoplasm of left ovary Benign neoplasm of right ovary Case Notes 23-HR BED PROCEDURAL ECG Routine 08/05/2024 9:01 AM EDT BASIC METABOLIC PANEL Routine 08/05/2024 8:51 AM EDT COMPLETE BLOOD COUNT Routine 08/05/2024 8:51 AM EDT TYPE AND SCREEN Routine 08/05/2024 8:51 AM EDT XR CHEST 2 VIEWS Routine 07/23/2024 8:48 AM EST Bilateral tubo-ovarian mass CBC WITH AUTO DIFFERENTIAL Routine 07/23/2024 8:17 AM EST Bilateral tubo-ovarian mass TYPE AND SCREEN Routine 07/23/2024 8:17 AM EST Bilateral tubo-ovarian mass CBC AND DIFFERENTIAL Routine 07/23/2024 8:17 AM EST Bilateral tubo-ovarian mass SCR MAMMO BI INCL CAD Routine 11/07/2016 5:49 PM EDT Encounter for screening mammogram for malignant neoplasm of breast from Last 3 Months or Most Recently Relevant to Health Maintenance Results * Tissue exam (08/11/2024 9:10 AM EDT) Final Diagnosis A. Ovary and fallopian tube, right, salpingo-oophorec joão: - Fibroma. - Residual ovarian parenchyma with surface epithelial inclusions. - Surface unilocular cyst attached to ovarian surface, lined by flattened or low cuboidal non-ciliated cells, favor classification as a unilocular peritoneal inclusion cyst. - Fallopian tube with a rare focus of chronic inflammation. B. Ovary and fallopian tube, left, salpingo-oophorec joão: - Serous adenofibroma. - Residual ovarian parenchyma with surface epithelial inclusions. - Fallopian tube without diagnostic histopathologic change. Note: The lesion in the right ovary comprises predominantly a solid proliferation of bland spindled cells associated with collagenous stroma compatible with fibroma. On the surface of the right ovary, there is a unilocular thin-walled cyst that is lined by non-ciliated epithelioid cells that resemble mesothelial cells and favor classification of the cyst as a unilocular peritoneal inclusion cyst. In the left ovary, similar solid areas of bland spindled cells are present. In addition, there is focal cystic areas (on the surface of the right ovary and central within the lesion of the left ovary) lined by cytologically bland ciliated epithelium are identified, which supports classification as a serous adenofibroma. 08/13/2024 12:26 PM EDT [facility] Gross Description A. Ovary, Right, fallopian tube: Labeled right ovary . Received fresh for frozen section diagnosis is a 17 g salpingo-oophorec joão specimen consisting of a 3.7 x 3.3 x 2.2 cm ovary with attached 3.8 x 0.6 cm fimbriated fallopian tube. The external surface of the ovary is ortiz-white, smooth and lobular with a 2 cm smooth-walled surface cyst. The cut surfaces of the ovary are comprised of dense ortiz-white fibrous tissue with focal yellow-orange discoloration. No definitive ovarian parenchyma is identified. The attached fimbriated fallopian tube has a ortiz-pink smooth, glistening serosa, a wall measuring up to 0.3 cm and a pinpoint lumen. There is a 0.5 x 0.5 x 0.2 cm white rubbery ligation device at one end. Licensed Chemical Spray Technician sections of the ovary are submitted for frozen section diagnosis. Additional senior human resources representative sections are submitted as follows: 1, frozen section remnant, one piece 2 and 3, fibrotic ovary, two pieces each 4, fallopian tube, three pieces Additional sections are submitted after review of initial H&E slides as follows: 5, surface cyst and yellow-orange discoloration, two pieces B. Ovary, Left, fallopian tube: Labeled left ovary . Received fresh for frozen section diagnosis is a 34 g salpingo-oophorec joão specimen consisting of a 5.2 x 3.6 x 3.3 cm lobular white-yellow firm ovary with attached 4.5 x 0.6 cm fimbriated fallopian tube. The external surface of the ovary is markedly lobular ortiz-yellow smooth and glistening. The cut surfaces are comprised of ortiz-white to yellow dense fibrous tissue with possible peripheral residual ovarian parenchyma with a central 1.3 cm smooth walled cyst. Detached fallopian tube have a pink-purple smooth, glistening serosa with minimal fluid-filled paratubal cyst measuring up to 0.3 cm. There is a 0.5 x 0.5 x 0.2 cm white rubbery ligation device at one end. Licensed Chemical Spray Technician sections are submitted for frozen section diagnosis. Additional sections are submitted as follows: 1, frozen section remnant, two pieces 2, ovary with possible residual ovarian parenchyma, two pieces 3 and 4, fibrotic ovary, two pieces each 5, fallopian tube, three pieces Additional sections are submitted after review of initial H&E slides as follows: 5, central cyst, one piece RENEE 08/13/2024 12:26 PM EDT [facility] Intraoperative Consultation A. Ovary, Right, fallopian tube: Low grade spindle cell proliferation/richard or, favor fibroma Per Dr. Luís Marrero notified B. Ovary, Left, fallopian tube: Low grade spindle cell proliferation/richard or, favor fibroma Per Dr. Luís Marrero notified 08/13/2024 12:26 PM EDT [facility] Disclaimer Unless otherwise specified, all tissue is 10% NB formalin fixed and paraffin embedded. 08/13/2024 12:26 PM EDT [facility] Tissue Structure of left ovary / Unknown 08/11/2024 9:10 AM EDT 08/11/2024 9:21 AM EDT Tissue specimen (specimen) Structure of left ovary / Unknown 08/11/2024 9:10 AM EDT 08/11/2024 9:22 AM EDT Eric Staley MD LAB PATHOLOGY ORDERABLES Final R esult [facility] [address] [place] [address], * Non-gynecologic cytology (08/11/2024 8:39 AM EDT) Final Diagnosis Pelvic washings (ThinPrep, cell block): Negative for malignant cells. 08/12/2024 12:57 PM EDT [facility] Specimen A Adequacy Satisfactory for evaluation 08/12/2024 12:57 PM EDT [facility] Gross Description A. Peritoneal Washings, pelvic washings: Received 50 ml of light yellow fluid; 1 ThinPrep, 1 Cell block Cell block in formalin @1100; total formalin fixation time 10 hours. 08/12/2024 12:57 PM EDT [facility] Disclaimer Unless otherwise specified, all tissue is 10% NB formalin fixed and paraffin embedded. Technical cytopathology services provided by [facility], at [address] [place] [address] (CLIA # [id number]/Laura Welsh MD, Business Law Professor.) 08/12/2024 12:57 PM EDT [facility] Wash Specimen obtained by peritoneal lavage / Unknown 08/11/2024 8:39 AM EDT 08/11/2024 10:55 AM EDT Eric Staley MD LAB CYTOLOGY ORDERABLES Final Re sult [facility] [address] [place] [address], * TH AN ENDOTRACHEAL(NO CHARGE) (08/11/2024 8:17 AM EDT) Narrative Jasmeet Lockett SRNA - 08/11/2024 8:17 AM EDT VIJAY Thayer ? 08/11/2024 ??8:18 AM General Information and Staff Patient location during procedure: OR Anesthesiologist: Eric Apodaca MD Resident/MEDICAL STENOGRAPHER: Meghan Flores CRNA Other anesthesia staff: VIJAY Thayer Performed: other anesthesia staff Performed by: VIJAY Thayer Authorized by: Eric Apodaca MD ?? Intubation Airway not difficult Urgency: elective Final Airway Details Successful airway: ETT Cuffed: yes Successful intubation technique: direct laryngoscopy Facilitating devices/methods: intubating stylet Endotracheal tube insertion site: oral Blade: Tony Blade size: #3 ETT size (mm): 7.0 Cormack-Lehane Classification: grade IIb - view of arytenoids or posterior of glottis only Placement verified by: chest auscultation and capnometry Measured from: lips ETT to lips (cm): 21 Number of attempts at approach: 1Final airway type: endotracheal airway Indications and Patient Condition Indications for airway management: anesthesia Spontaneous Ventilation: absent Sedation level: Yes Preoxygenated: yes Soft Tissue Damage: No Dentition Unchanged: Yes Patient position: sniffing Mask difficulty assessment: 1 - vent by mask us Eric Apodaca MD ANESTHESIA ORDERABLES Final Re sult * ECG 12 lead - Procedural (No Charge) (08/05/2024 9:01 AM EDT) Ventricular Rate ECG 57 BPM GEMUSE Atrial Rate 57 BPM GEMUSE P-R Interval 130 ms GEMUSE QRS Duration 82 ms GEMUSE Q-T Interval 434 ms GEMUSE QTc 422 ms GEMUSE P Wave [place] 81 degrees GEMUSE R [place] 50 degrees GEMUSE T [place] 79 degrees GEMUSE ECG Interpretation Sinus bradycardia Nonspecific ST and T wave abnormality Abnormal ECG No previous ECGs available Confirmed by Brianna AUSTIN YUFENG ([id number]) on 08/05/2024 2:34:00 PM GEMUSE 08/05/2024 9:01 AM EDT 08/05/2024 2:34 PM EDT us Eric Staley MD ECG ORDERABLES Final Result GEMUSE * (ABNORMAL) CBC (08/05/2024 8:51 AM EDT) WBC 9.8 4.8 - 10.8 K/mcL LAB HEMETOLOGY METHOD 08/05/2024 9:26 AM EDT [facility] RBC 5.10(H) 3.80 - 4.80 M/[facility] HEMETOLOGY METHOD 08/05/2024 9:26 AM EDT [facility] Hemoglobin 14.6 11.5 - 16.0 g/dL LAB HEMETOLOGY METHOD 08/05/2024 9:26 AM EDT [facility] Hematocrit 44.6 35.0 - 47.0 % LAB HEMETOLOGY METHOD 08/05/2024 9:26 AM EDT [facility] MCV 87.8 79.0 - 98.0 FL LAB HEMETOLOGY METHOD 08/05/2024 9:26 AM EDT [facility] MCH 28.7 27.0 - 32.0 pcg LAB HEMETOLOGY METHOD 08/05/2024 9:26 AM EDT [facility] MCHC 32.7 32.0 - 37.0 g/dL LAB HEMETOLOGY METHOD 08/05/2024 9:26 AM EDT [facility] RDW 14.7 11.0 - 15.0 % LAB HEMETOLOGY METHOD 08/05/2024 9:26 AM [facility] Platelets 260 130 - 400 K/mcL LAB HEMETOLOGY METHOD 08/05/2024 9:26 AM T [facility] MPV 11.7(H) 7.0 - 11.0 FL LAB HEMETOLOGY METHOD 08/05/2024 9:26 AM T [facility] NRBC 0.0 <1.0 % LAB HEMETOLOGY METHOD 08/05/2024 9:26 AM [facility] NRBC Absolute 0.00 <0.10 K/mcL LAB HEMETOLOGY METHOD 08/05/2024 9:26 AM T [facility] Blood Venous blood specimen / Unknown Venipuncture / Unknown 08/05/2024 8:51 AM EDT 08/05/2024 9:13 AM EDT us Eric Staley MD LAB BLOOD ORDERABLES Final Resul t [facility] [address] [place] [address], * Type and screen (08/05/2024 8:51 AM EDT) Only the most recent of2 resultswithin the time period is included. Pathologist [facility] A 08/05/2024 11:54 AM EDT [facility] Rh Type Positive 08/05/2024 11:54 AM EDT [facility] Antibody Screen Negative 08/05/2024 11:54 AM [facility] Blood Venous blood specimen / Unknown Venipuncture / Unknown 08/05/2024 8:51 AM EDT 08/05/2024 9:13 AM EDT Eric Staley MD LAB BLOOD BANK TEST ORDERABLES F inal Result [facility] [address] [place] [address], [place] [phone] * Basic metabolic panel (08/05/2024 8:51 AM EDT) [facility] Sodium 139 133 - 145 mmol/L LAB CHEMISTRY METHOD 08/05/2024 10:00 AM [facility] Potassium 4.2 3.5 - 5.5 mmol/L LAB CHEMISTRY METHOD 08/05/2024 10:00 AM [facility] Chloride 106 96 - 110 mmol/L LAB CHEMISTRY METHOD 08/05/2024 10:00 AM [facility] CO2 27 21 - 32 mmol/L LAB CHEMISTRY METHOD 08/05/2024 10:00 AM [facility] Anion Gap 6 3 - 11 LAB CHEMISTRY METHOD 08/05/2024 10:00 AM [facility] Glucose 100 70 - 100 mg/dL LAB CHEMISTRY METHOD 08/05/2024 10:00 AM [facility] BUN 16 5 - 25 mg/dL LAB CHEMISTRY METHOD 08/05/2024 10:00 AM [facility] Creatinine 0.89 0.50 - 1.10 mg/dL LAB CHEMISTRY METHOD 08/05/2024 10:00 AM EDT [facility] eGFR 71 >=60 mL/min/1. 73m2 LAB CHEMISTRY METHOD 08/05/2024 10:00 AM EDT [facility] Comment:Calculation based on the??Chronic Kidney Disease Epidemiology Collaboration (CKD-EPI) equation refit??without adjustment for race. BUN/Creatinine Ratio 18.0 LAB CHEMISTRY METHOD 08/05/2024 10:00 AM EDT [facility] Calcium 9.8 8.5 - 10.5 mg/dL LAB CHEMISTRY METHOD 08/05/2024 10:00 AM EDT [facility] Blood Venous blood specimen / Unknown Venipuncture / Unknown 08/05/2024 8:51 AM EDT 08/05/2024 9:13 AM EDT us Eric Staley MD LAB BLOOD ORDERABLES Final Resul t [facility] [address] [place] [address], [place] [phone] * XR Chest 2 Views (07/23/2024 8:48 AM EST) Anatomical Region Laterality Modality Body Radiographic Rosalind ging 07/28/2024 1:56 PM EST Impressions 07/28/2024 1:57 PM EST Impression: No active pulmonary process identified. Telerad ALECIA ([id number]) -------- FINAL REPORT -------- Dictated By: Betty Landa Dictated Date: 07/28/2024 13:56 ET Assigned Physician: Betty Landa Reviewed and Electronically Signed By: Betty Landa Signed Date: 07/28/2024 13:57 ET Workstation ID: [id number] Transcribed By: Self Edit Transcribed Date: 07/28/2024 13:56 ET Narrative 07/28/2024 1:57 PM EST History: Smoker. Preop pelvic surgery. Comparison: No comparison imaging at this institution. Findings: PA and lateral views. The cardiac silhouette is normal in size. Atherosclerotic calcification of the thoracic aorta is seen. Hilar contours and pulmonary vascularity appear normal. The lungs are clear. The costophrenic angles are sharp. The regional skeleton is intact. Procedure Note Betty Landa MD - 07/28/2024 History: Smoker. Preop pelvic surgery. Comparison: No comparison imaging at this institution. Findings: PA and lateral views. The cardiac silhouette is normal in size.Atherosclerotic calcification of the thoracic aorta is seen. Hilarcontours and pulmonary vascularity appear normal. The lungs are clear. Thecostophrenic angles are sharp. The regional skeleton is intact. IMPRESSION: Impression: No active pulmonary process identified. Telerad PA ([id number]) -------- FINAL REPORT -------- Dictated By: Betty Landa Dictated Date: 07/28/2024 13:56 ET Assigned Physician: Betty Landa Reviewed and Electronically Signed By: Betty Landa Signed Date: 07/28/2024 13:57 ET Workstation ID: [id number] Transcribed By: Self Edit Transcribed Date: 07/28/2024 13:56 ET Eric Staley MD IMG XR PROCEDURES Final Result * (ABNORMAL) CBC auto differential (07/23/2024 8:17 AM EST) WBC 9.6 4.8 - 10.8 K/mcL LAB HEMETOLOGY METHOD 07/23/2024 9:29 AM [facility] RBC 4.90(H) 3.80 - 4.80 M/mcL LAB HEMETOLOGY METHOD 07/23/2024 9:29 AM [facility] Hemoglobin 14.0 11.5 - 16.0 g/dL LAB HEMETOLOGY METHOD 07/23/2024 9:29 AM [facility] Hematocrit 42.5 35.0 - 47.0 % LAB HEMETOLOGY METHOD 07/23/2024 9:29 AM [facility] MCV 86.2 79.0 - 98.0 FL LAB HEMETOLOGY METHOD 07/23/2024 9:29 AM [facility] MCH 28.4 27.0 - 32.0 pcg LAB HEMETOLOGY METHOD 07/23/2024 9:29 AM [facility] MCHC 32.9 32.0 - 37.0 g/dL LAB HEMETOLOGY METHOD 07/23/2024 9:29 AM [facility] RDW 14.6 11.0 - 15.0 % LAB HEMETOLOGY METHOD 07/23/2024 9:29 AM [facility] Platelets 243 130 - 400 K/mcL LAB HEMETOLOGY METHOD 07/23/2024 9:29 AM [facility] MPV 11.9(H) 7.0 - 11.0 FL LAB HEMETOLOGY METHOD 07/23/2024 9:29 AM [facility] NRBC 0.0 <1.0 % LAB HEMETOLOGY METHOD 07/23/2024 9:29 AM [facility] NRBC Absolute 0.00 <0.10 K/mcL LAB HEMETOLOGY METHOD 07/23/2024 9:29 AM [facility] Neutrophils Relative 64.6 % LAB HEMETOLOGY METHOD 07/23/2024 9:29 AM [facility] Lymphocytes Relative 24.0 % LAB HEMETOLOGY METHOD 07/23/2024 9:29 AM [facility] Monocytes Relative 9.0 % LAB HEMETOLOGY METHOD 07/23/2024 9:29 AM [facility] Eosinophils Relative 1.4 % LAB HEMETOLOGY METHOD 07/23/2024 9:29 AM [facility] Basophils Relative 0.8 % LAB HEMETOLOGY METHOD 07/23/2024 9:29 AM [facility] Immature Granulocytes Relative 0.2 % LAB HEMETOLOGY METHOD 07/23/2024 9:29 AM EST [facility] Neutrophils Absolute 6.18 1.50 - 7.00 K/[facility] HEMETOLOGY METHOD 07/23/2024 9:29 AM EST [facility] Lymphocytes Absolute 2.29 1.00 - 5.00 K/mcL LAB HEMETOLOGY METHOD 07/23/2024 9:29 AM EST [facility] Monocytes Absolute 0.86 0.20 - 1.00 K/mcL LAB HEMETOLOGY METHOD 07/23/2024 9:29 AM [facility] Eosinophils Absolute 0.13 0.00 - 0.50 K/[facility] HEMETOLOGY METHOD 07/23/2024 9:29 AM [facility] Basophils Absolute 0.08 0.00 - 0.20 K/mcL LAB HEMETOLOGY METHOD 07/23/2024 9:29 AM [facility] Immature Granulocytes Absolute 0.02 0.00 - 0.03 K/mcL LAB HEMETOLOGY METHOD 07/23/2024 9:29 AM [facility] Blood Venous blood specimen / Unknown Venipuncture / Unknown 07/23/2024 8:17 AM EST 07/23/2024 9:10 AM EST us Eric Staley MD LAB BLOOD ORDERABLES Final Resul t [facility] [address] [place] [address], * SCR MAMMO BI INCL CAD (11/07/2016 5:49 PM EDT) Anatomical Region Laterality Modality Radiographic Rosalind ging 11/03/2015 5:43 PM EDT Narrative 11/08/2016 10:00 AM EDT This is a summary report. The complete report is available in the patient's medical record. If you cannot access the medical record, please contact the sending organization for a detailed fax or copy. Full field digital screening mammography, reviewed with CAD and compared to previous. ??The breast tissue is dense, limiting sensitivity. ??No suspicious mass, architectural distortion or suspicious calcifications are identified. IMPRESSION: : Dense breast tissue, limiting the sensitivity of mammography. ??No mammographic evidence of malignancy. MRI examination is recommended yearly as a part of the screening on this patient with high lifetime breast cancer risk assessment. BIRADS 1-Negative; N. 5 year breast cancer risk assessment 8.7 % Lifetime breast cancer risk assessment 35.5 % Breast cancer risk category High (>20%) Procedure Note Mayra Saldana MD - 06/29/2023 This is a summary report. The complete report is available in thepatient's medical record. If you cannot access the medical record, pleasecontact the sending organization for a detailed fax or copy. Full field digital screening mammography, reviewed with CAD and comparedto previous. The breast tissue is dense, limiting sensitivity. Nosuspicious mass, architectural distortion or suspicious calcifications areidentified. IMPRESSION: : Dense breast tissue, limiting the sensitivity of mammography. Nomammographic evidence of malignancy. MRI examination is recommended yearlyas a part of the screening on this patient with high lifetime breastcancer risk assessment. BIRADS 1-Negative; N. 5 year breast cancer risk assessment 8.7 % Lifetime breast cancer risk assessment 35.5 % Breast cancer risk category High (>20%) Mary Dinh MD IMG XR PROCEDURES Final Result from Last 3 Months or Most Recently Relevant to Health Maintenance Insurance [employer] MEDICARE Advance Directives Documents on File Type Date Recorded Patient Licensed Chemical Spray Technician Expl anation Power of Mixer Crane Operator 08/11/2024 6:26 AM [facility] * Full Code - Default (Latest Code Status on File) Date Activated Date Inactivated Comments 08/11/2024 6:17 AM 08/11/2024 2:29 PM This is orde r is used when code status has not been discussed with the patient, or code status is otherwise unknown/unconfirmed To update the patient's code status, place a code status order. Do not modify or discontinue any currently active code status orders. Care Teams Mold Construction Supervisor Relationship Specialty Start Date End Date Gerald Last NP [address] [facility] [place], [place] PCP - General 09/27/23
== END 2024-09-03 08:26 | disposition home or self-care (01) ==
LOC: HO.MAMMO 08:25
PROVIDERS: PCP Nurse Practitioner Family; Visit Provider Nurse Practitioner Family
DX: Z12.31 Encounter for screening mammogram for malignant neoplasm of breast (principal)
CPT/HCPCS: 77063; 77067

== ENCOUNTER → 2024-09-03 08:45 | Outpatient (BNV) | payer MEDICARE, SELFPAY | PROVIDERS: PCP Nurse Practitioner Family; Visit Provider Internal Medicine | DX: Z12.31 Encounter for screening mammogram for malignant neoplasm of breast (principal) | CPT/HCPCS: 77063; 77067 ==

== ENCOUNTER 2024-09-24 07:54 | Outpatient (AMB) | payer MEDICARE, SELFPAY ==
--- OUTSIDE RECORDS SUMMARY | 2024-09-24 07:57 | XMS_ITS | Clinical Summary ---
Author Organization [facility] Address [address] [place] [address] Phone Care Team Providers Care Farm Implement Mechanic Name Role Phone Gerald Last NP Primary Care Provider [phone] Allergies Active Allergy Reactions Criticality Noted Date Comments Amoxicillin Trihydrate Hives 05/03/2005 Sulfamethoxazole-Trimethoprim Hives 2009 Medications amLODIPine (NORVASC) 5 mg tablet Take 1 tablet (5 mg total) by mouth 1 (one) time each day. 4 Active rosuvastatin (CRESTOR) 10 mg tablet Take 1 tablet (10 mg total) by mouth 1 (one) time each day. 4 Active methIMAzole (TAPAZOLE) 10 mg tablet Take 1 tablet (10 mg total) by mouth 1 (one) time each day. 5 Active CALCIUM CARBONATE-AUDI MIN D3 ORAL Take by mouth 1 (one) time each day. Active acetaminophen (TYLENOL) 500 mg tablet Take 2 tablets (1,000 mg total) by mouth every 8 (eight) hours. 30 tablet 5 Active docusate sodium (COLACE) 100 mg capsule Take 1 capsule (100 mg total) by mouth 1 (one) time each day. 7 each 5 Active oxyCODONE (OXY-IR) 5 mg immediate release capsule Take 1 capsule (5 mg total) by mouth every 6 (six) hours if needed for severe pain. Max Daily Amount: 20 mg 12 capsule 5 09/08/19 25 Discontinued Active Problems Problem Noted Date Diagnosed Date Current every day smoker Hypercholesterolemia Hypertension Hyperthyroidism Resolved Problems Problem Noted Date Diagnosed Date Resolved Date Bilateral tubo-ovarian mass 07/22/2024 08/11/2024 Encounters Date Type Department Care Team Description 08/21/2024 10:40 AM EDT Office Visit [address] [phone] Eric Staley MD Postop check (Primary Dx); Fibroma of right ovary; Serous adenofibroma of left ovary 08/11/2024 7:53 AM EDT Anesthesia Event [facility] OR [address] [place] [phone] Eric Apodaca MD [place], [facility] 08/11/2024 7:30 AM EDT - 08/11/2024 10:30 AM EDT Surgery [address] [phone] Eric Staley MD Davinci assisted laparoscopic bilateral salpingo-oophorectom y [[id number] (CPT??)] 08/11/2024 5:47 AM EDT - 08/11/2024 12:15 PM EDT Hospital Encounter [address] [address] Eric Staley MD Bilateral tubo-ovarian mass Discharge Disposition: Home or Self Care 07/23/2024 8:28 AM EST - 07/23/2024 11:59 PM EST Hospital Encounter [facility] Xray [address] [place] [phone] Bilateral tubo-ovarian mass Discharge Disposition: Home or Self Care 07/22/2024 1:20 PM EST Consult [address] [phone] Eric Staley MD Bilateral tubo-ovarian mass (Primary Dx) from Last 3 Months Surgical History Surgery Date Site/Laterality Comments TUBAL LIGATION 05/28/1985 - 05/27/1986 BILATERAL SALPINGOOPHORECTOMY 08/11/2024 Robot assisted laparoscopic bilateral salpingo-oophorectomy Medical History Medical History Date Comments Hypertension [...] Cancer Screening 11/07/2018 11/07/2016 COVID-19 Vaccine (3 - 2023-2 5 season) 2024 05/17/2021, 09/02/2020 Cholesterol [...] ENDOTRACHEAL(NO CHARGE) Routine 08/11/2024 8:17 AM EDT DC LAP SURG W REM ADNEXAL STRUCTURES 08/11/2024 [...] a serous adenofibroma. 08/13/2024 12:26 PM EDT [facility] ([facility]) [facility] Gross Description A. Ovary, Right, [...] white rubbery ligation device at one end. Telegraph Repeater Installer sections of the ovary are submitted for frozen section diagnosis. Additional patient account representative sections are submitted as follows: 1, [...] white rubbery ligation device at one end. Telegraph Repeater Installer sections are submitted for frozen section diagnosis. Additional sections are submitted as follows: 1, frozen section remnant, two pieces 2, ovary with possible residual ovarian parenchyma, two pieces 3 and 4, fibrotic ovary, two pieces each 5, fallopian tube, three pieces Additional sections are submitted after review of initial H&E slides as follows: 5, central cyst, one piece RENEE 08/13/2024 12:26 PM EDT [facility] Intraoperative Consultation A. Ovary, Right, fallopian tube: Low grade spindle cell proliferation/richard or, favor fibroma Per Dr. Luís Marrero notified B. Ovary, Left, fallopian tube: Low grade spindle cell proliferation/richard or, favor fibroma Per Dr. Luís Marrero notified 08/13/2024 12:26 PM EDT [facility] Disclaimer Unless otherwise specified, all tissue is 10% NB formalin fixed and paraffin embedded. 08/13/2024 12:26 PM EDT [facility] Tissue Structure of left ovary / Unknown 08/11/2024 9:10 AM EDT 08/11/2024 9:21 AM EDT Tissue specimen (specimen) Structure of left ovary / Unknown 08/11/2024 9:10 AM EDT 08/11/2024 9:22 AM EDT us Eric Staley MD LAB PATHOLOGY ORDERABLES Final R esult [facility]) [facility] [address] [place] [address], * Non-gynecologic cytology (08/11/2024 8:39 AM EDT) Final Diagnosis Pelvic washings (ThinPrep, cell block): Negative for malignant cells. 08/12/2024 12:57 PM EDT [facility] Specimen A Adequacy Satisfactory for evaluation 08/12/2024 12:57 PM EDT [facility] Gross Description A. Peritoneal Washings, pelvic washings: Received 50 ml of light yellow fluid; 1 ThinPrep, 1 Cell block Cell block in formalin @1100; total formalin fixation time 10 hours. 08/12/2024 12:57 PM EDT [facility] Disclaimer Unless otherwise specified, all tissue is 10% NB formalin fixed and paraffin embedded. Technical cytopathology services provided by [facility], at [address] [place] [id number] (CLIA # [id number]/Laura Welsh MD, Financial Director.) 08/12/2024 12:57 PM EDT [facility] Wash Specimen obtained by peritoneal lavage / Unknown 08/11/2024 8:39 AM EDT 08/11/2024 10:55 AM EDT us Eric Staley MD LAB CYTOLOGY ORDERABLES Final Re sult [facility] [address] [place] [address], * TH AN ENDOTRACHEAL(NO CHARGE) (08/11/2024 8:17 AM EDT) Narrative Jasmeet Lockett SRNA - 08/11/2024 8:17 AM EDT VIJAY Thayer ? 08/11/2024 ??8:18 AM General Information and Staff Patient location during procedure: OR Anesthesiologist: Eric Apodaca MD Resident/IRISH MOSS OPERATOR: Meghan Flores CRNA Other anesthesia staff: VIJAY Thayer Performed: other anesthesia staff Performed by: VIJAY hTayer Authorized by: Eric Apodaca MD ?? Intubation [...] GEMUSE QTc 422 ms GEMUSE P Wave [place] 81 degrees GEMUSE R [place] 50 degrees GEMUSE T [place] 79 degrees GEMUSE ECG Interpretation Sinus bradycardia [...] LAB HEMETOLOGY METHOD 08/05/2024 9:26 AM EDT [facility] RBC 5.10(H) 3.80 - 4.80 M/[facility] LAB HEMETOLOGY METHOD 08/05/2024 9:26 AM EDT [facility] Hemoglobin 14.6 11.5 - 16.0 g/dL LAB HEMETOLOGY METHOD 08/05/2024 9:26 AM EDT [facility] Hematocrit 44.6 35.0 - 47.0 % LAB HEMETOLOGY METHOD 08/05/2024 9:26 AM EDT [facility] MCV 87.8 79.0 - 98.0 FL LAB HEMETOLOGY METHOD 08/05/2024 9:26 AM EDT [facility] MCH 28.7 27.0 - 32.0 pcg LAB HEMETOLOGY METHOD 08/05/2024 9:26 AM EDT [facility] MCHC 32.7 32.0 - 37.0 g/dL LAB HEMETOLOGY METHOD 08/05/2024 [facility] RDW 14.7 11.0 - 15.0 % LAB HEMETOLOGY METHOD 08/05/2024 9:26 AM EDT [facility] Platelets 260 130 - 400 K/mcL LAB HEMETOLOGY METHOD 08/05/2024 9:26 AM EDT [facility] MPV 11.7(H) 7.0 - 11.0 FL LAB HEMETOLOGY METHOD 08/05/2024 9:26 AM [facility] NRBC 0.0 <1.0 % LAB HEMETOLOGY METHOD 08/05/2024 9:26 AM EDT [facility] NRBC Absolute 0.00 <0.10 K/mcL LAB HEMETOLOGY METHOD 08/05/2024 9:26 AM [facility] Blood Venous blood specimen / Unknown Venipuncture / Unknown 08/05/2024 8:51 AM EDT 08/05/2024 9:13 AM EDT us Eric Staley MD LAB BLOOD ORDERABLES Final Resul t [facility] [address] [place] [address], [place] [phone] * Type and screen (08/05/2024 8:51 AM EDT) Only the most recent of2 resultswithin the time period is included. [facility] ABO Group A 08/05/2024 11:54 AM EDT [facility] Rh Type Positive 08/05/2024 11:54 AM EDT [facility] Antibody Screen Negative 08/05/2024 11:54 AM EDT [facility] Blood Venous blood specimen / Unknown Venipuncture / Unknown 08/05/2024 8:51 AM EDT 08/05/2024 9:13 AM EDT Eric Staley MD LAB BLOOD BANK TEST ORDERABLES F inal Result [facility] [address] [place] [address], [place] [phone] * Basic metabolic panel (08/05/2024 8:51 AM EDT) [facility] Sodium 139 133 - 145 mmol/L LAB CHEMISTRY METHOD 08/05/2024 10:00 AM [facility] Potassium 4.2 3.5 - 5.5 mmol/L LAB CHEMISTRY METHOD 08/05/2024 10:00 AM [facility] Chloride 106 96 - 110 mmol/L LAB CHEMISTRY METHOD 08/05/2024 10:00 AM [facility] CO2 27 21 - 32 mmol/L LAB CHEMISTRY METHOD 08/05/2024 10:00 AM [facility] Anion Gap 6 3 - 11 LAB CHEMISTRY METHOD 08/05/2024 10:00 AM [facility] Glucose 100 70 - 100 mg/dL LAB CHEMISTRY METHOD 08/05/2024 10:00 AM EDT [facility] BUN 16 5 - 25 mg/dL LAB CHEMISTRY METHOD 08/05/2024 10:00 AM EDT [facility] Creatinine 0.89 0.50 - 1.10 mg/dL LAB CHEMISTRY METHOD 08/05/2024 10:00 AM EDT [facility] eGFR 71 >=60 mL/min/1. 73m2 LAB CHEMISTRY METHOD 08/05/2024 10:00 AM EDT [facility] Comment:Calculation based on the??Chronic Kidney Disease Epidemiology Collaboration (CKD-EPI) equation refit??without adjustment for race. BUN/Creatinine Ratio 18.0 LAB CHEMISTRY METHOD 08/05/2024 10:00 AM EDT [facility] Calcium 9.8 8.5 - 10.5 mg/dL LAB CHEMISTRY METHOD 08/05/2024 10:00 AM EDT [facility] Blood Venous blood specimen / Unknown Venipuncture / Unknown 08/05/2024 8:51 AM EDT 08/05/2024 9:13 AM EDT us Eric Staley MD LAB BLOOD ORDERABLES Final Resul t [facility] [address] [place] [address], * XR Chest 2 Views (07/23/2024 8:48 AM EST) Anatomical Region Laterality Modality Body Radiographic Rosalind ging 07/28/2024 1:56 PM EST Impressions 07/28/2024 1:57 PM EST Impression: No active pulmonary process identified. Telerad ALECIA ([id number]) -------- FINAL REPORT -------- Dictated By: Betty Landa Dictated Date: 07/28/2024 13:56 ET Assigned Physician: Betty Landa Reviewed and Electronically Signed By: Betty Landa Signed Date: 07/28/2024 13:57 ET Workstation ID: [id number] Transcribed By: Self Edit Transcribed Date: 07/28/2024 [...] No active pulmonary process identified. Telerad PA ([id number]) -------- FINAL REPORT -------- Dictated By: Betty Landa Dictated Date: 07/28/2024 13:56 ET Assigned Physician: Betty Landa Reviewed and Electronically Signed By: Betty Landa Signed Date: 07/28/2024 13:57 ET Workstation ID: [id number] Transcribed By: Self Edit Transcribed Date: 07/28/2024 13:56 ET Eric Staley MD IMG XR PROCEDURES Final Result * (ABNORMAL) CBC auto differential (07/23/2024 8:17 AM EST) WBC 9.6 4.8 - 10.8 K/mcL LAB HEMETOLOGY METHOD 07/23/2024 9:29 AM EST [facility] RBC 4.90(H) 3.80 - 4.80 M/mcL LAB HEMETOLOGY METHOD 07/23/2024 9:29 AM EST [facility] Hemoglobin 14.0 11.5 - 16.0 g/dL LAB HEMETOLOGY METHOD 07/23/2024 9:29 AM [facility] Hematocrit 42.5 35.0 - 47.0 % LAB HEMETOLOGY METHOD 07/23/2024 9:29 AM [facility] MCV 86.2 79.0 - 98.0 FL LAB HEMETOLOGY METHOD 07/23/2024 9:29 AM [facility] MCH 28.4 27.0 - 32.0 pcg LAB HEMETOLOGY METHOD 07/23/2024 9:29 AM [facility] MCHC 32.9 32.0 - 37.0 g/dL LAB HEMETOLOGY METHOD 07/23/2024 9:29 AM [facility] RDW 14.6 11.0 - 15.0 % LAB HEMETOLOGY METHOD 07/23/2024 9:29 AM [facility] Platelets 243 130 - 400 K/mcL LAB HEMETOLOGY METHOD 07/23/2024 9:29 AM [facility] MPV 11.9(H) 7.0 - 11.0 FL LAB HEMETOLOGY METHOD 07/23/2024 9:29 AM [facility] NRBC 0.0 <1.0 % LAB HEMETOLOGY METHOD 07/23/2024 9:29 AM [facility] NRBC Absolute 0.00 <0.10 K/mcL LAB HEMETOLOGY METHOD 07/23/2024 9:29 AM [facility] Neutrophils Relative 64.6 % LAB HEMETOLOGY METHOD 07/23/2024 9:29 AM [facility] Lymphocytes Relative 24.0 % LAB HEMETOLOGY METHOD 07/23/2024 9:29 AM [facility] Monocytes Relative 9.0 % LAB HEMETOLOGY METHOD 07/23/2024 9:29 AM [facility] Eosinophils Relative 1.4 % LAB HEMETOLOGY METHOD 07/23/2024 9:29 AM EST [facility] Basophils Relative 0.8 % LAB HEMETOLOGY METHOD 07/23/2024 9:29 AM [facility] Immature Granulocytes Relative 0.2 % LAB HEMETOLOGY METHOD 07/23/2024 9:29 AM [facility] Neutrophils Absolute 6.18 1.50 - 7.00 K/mcL LAB HEMETOLOGY METHOD 07/23/2024 9:29 AM [facility] Lymphocytes Absolute 2.29 1.00 - 5.00 K/mcL LAB HEMETOLOGY METHOD 07/23/2024 9:29 AM [facility] Monocytes Absolute 0.86 0.20 - 1.00 K/mcL LAB HEMETOLOGY METHOD 07/23/2024 9:29 AM [facility] Eosinophils Absolute 0.13 0.00 - 0.50 K/mcL LAB HEMETOLOGY METHOD 07/23/2024 9:29 AM EST [facility] Basophils Absolute 0.08 0.00 - 0.20 K/mcL LAB HEMETOLOGY METHOD 07/23/2024 9:29 AM [facility] Immature Granulocytes Absolute 0.02 0.00 - 0.03 K/mcL LAB HEMETOLOGY METHOD 07/23/2024 9:29 AM [facility] Blood Venous blood specimen / Unknown Venipuncture / Unknown 07/23/2024 8:17 AM EST 07/23/2024 9:10 AM EST us Eric Staley MD LAB BLOOD ORDERABLES Final Resul t [facility]) [facility] [address] [place] [address], * SCR MAMMO BI INCL CAD (11/07/2016 5:49 PM EDT) Anatomical Region Laterality Modality Radiographic Roaslind ging 11/03/2015 5:43 PM EDT Narrative 11/08/2016 [...] % Breast cancer risk category High (>20%) us Mary Dinh MD IMG XR PROCEDURES Final Result from Last 3 Months or Most Recently Relevant to Health Maintenance Insurance [employer] MEDICARE Advance Directives Documents on File Type Date Recorded Patient Telegraph Repeater Installer Expl anation Power of Cosmetic Account Coordinator 08/11/2024 6:26 AM [facility] PROX[facility] * Full Code - [...] currently active code status orders. Care Teams Farm Implement Mechanic Relationship Specialty Start Date End Date Gerald Last NP [address] [place], [place] PCP - General 09/27/23
[2024-09-24 08:01] VITALS: BP 134/64; PULSE 63; RESP 16; TEMP 36.6; O2SAT 98; BMI 23.4
--- NOTE | 2024-09-24 08:01 | MHC.PC.OV ---
Vital Signs 09/24/24 08:01 Height 5 ft 1 in Weight 124 lb BMI 23.4 BP 134/64 Blood Pressure Location Lt brachial Position Sitting Respiration 16 Pulse 63 Pulse Source Pulse Oximeter Temp 97.9 F Temp Source Oral Pulse Oximetry (%) 98 Oxygen Delivery Method Room Air Intake Visit Reasons: 6m f/u Intake Note: Pt is her today for her 6mo. Allergies amoxicillin Allergy (Mild, Verified 09/24/24 08:02) hives sulfamethoxazole [From Bactrim] Allergy (Mild, Verified 09/24/24 08:02) Hives trimethoprim [From Bactrim] Allergy (Mild, Verified 09/24/24 08:02) Hives Tobacco use date assessed: 09/24/24 Fall risk assessment: No Falls in past year Last assessed Fall Risk: 09/24/24 Dental Screening Dental Screen Date: 09/24/23 Did you have a dental visit in the last 12 months?: Yes Did you have a dental problem in the last 6 months where you did not have access to dental care?: Yes Was dental information given to patient?: Patient has dentist HPI 6m f/u HPI Details Chief Complaint - Follow-up for dyslipidemia and postoperative recovery History of Present Illness The patient is a 68-year-old female presenting with a follow-up for dyslipidemia and postoperative recovery. The laboratory tests necessary to evaluate her dyslipidemia have been ordered during this visit. She denies the presence of symptoms such as chest pain or dyspnea. In terms of her surgical history, she recently underwent a partial hysterectomy and tubal ligation, conducted in July. She has returned to work and reports a small amount of abdominal discomfort, though the surgical sites appear to be healing appropriately. The incision at the umbilical region is noted as the largest but remains intact. This examination highlighted the detection of left-sided carotid bruits. The patient has a significant history of smoking and continues to use tobacco products. She has opted out of low-dose CT scans. Additionally, she is scheduled for a bone density scan, while her mammogram and colorectal cancer screenings are up to date. Social History - Smoker, current tobacco use - Recently returned to work post-surgery Health Maintenance - Ordered a bone density scan - Mammogram up to date - Colorectal cancer screening with Cologuard up to date Review of Systems - Cardiovascular: Denies chest pain - Respiratory: Denies shortness of breath - Gastrointestinal: Reports slight abdominal discomfort Physical Exam General: Cooperative, healthy appearing, comfortable, no acute distress and well developed Orientation: Patient oriented x3 Limitations: No limitations Head: Normal to inspection Ears: Hearing grossly normal bilaterally Nose: Normal external nose present Face and sinus: Normal facial exam Eyes: Appearance normal, both eyes and all related structures Neck: Normal visual inspection and Yes full ROM Respiratory: Normal respiratory effort and able to speak in complete sentences. Clear to auscultation bilaterally, faintly diminished Cardiovascular: Regular rate and rhythm. Normal S1 and S2. Left sided carotid bruit noted GI: Normal to inspection. Soft to palpation and nontender. Little abdominal discomfort with movement Skin: No rashes or lesions noted Neuro: Patient oriented x3 Extremities: Normal to inspection Results Plan I will proceed with the management for dyslipidemia, including evaluating today's lab results for lipid profile adjustments. I increased her statin today from 10mg to 20mg. The presence of bruits in the left carotid area necessitates a scheduled ultrasound to investigate any underlying vascular concerns. Despite the patient's smoking status, which presents cardiovascular risks, she declined the option of low-dose CAT scans. We reiterated the critical role of smoking cessation in risk reduction. A bone density scan is advised to monitor for osteoporosis, with screenings for mammogram and Cologuard indicating no immediate concerns. Her postoperative state is stable with healing documented as appropriate, notwithstanding the tolerable abdominal discomfort reported. Regular follow-up appointments will address ongoing management needs. Discussion Notes During this consultation, I thoroughly discussed the patients' dyslipidemia and postoperative progress. She is advised of the value of ongoing monitoring and testing, with future adjustments contingent on today's lab results. We acknowledged left carotid bruits' assessment through ultrasound to assess her vascular health. Despite encouragement to mitigate cardiovascular risk through low-dose CAT scans, she opted against it, prompting a discussion about the ongoing effects of smoking and emphasized smoking cessation benefits. The necessity of a bone density scan for osteoporosis prevention was affirmed, considering her age and known risk factors. Consent for existing proactive screening results is acknowledged with relevance to ongoing health maintenance. Detailed follow-up arrangements allow periodic reassessment of health progress. Patient Instructions - Continue adhering to prescribed treatments for dyslipidemia - Attend scheduled ultrasound for carotid bruits assessment - Undergo the upcoming bone density test - Consider smoking cessation resources - Revisit for concerns during recovery from surgery, especially if discomfort worsens - Follow up with any new or worsening symptoms - Stay up to date with routine health screenings PFSH Medical History Osteoporosis Surgical History History of partial hysterectomy H/O tubal ligation Family History Mother Breast cancer Sister Breast cancer Social History Household Members: Spouse Housing: House Alcohol intake: never Patient Tobacco Use Status: Current everyday Tobacco user Cigarettes Per Day: 4 e-Cigarette/Vaping Use: Never Used Second Hand Smoke Exposure: No service: No Current occupational status: employed Current occupation: [employer] Current occupational exposures/hazards: Yes Sexual orientation: Straight/Heterosexual Gender identity: Female Cognitive needs: No Hearing needs: No Vision needs: No Questionnaire PHQ-9 Over the last 2 weeks, how often have you been bothered by any of the following problems? 1. Little interest or pleasure in doing things: not at all 2. Feeling down, depressed, or hopeless: not at all 3. Trouble falling or staying asleep, or sleeping too much: not at all 4. Feeling tired or having little energy: not at all 5. Poor appetite or overeating: not at all 6. Feeling bad about yourself - or that you are a failure or have let yourself or your family down: not at all 7. Trouble concentrating on things, such as reading the newspaper or watching television: not at all 8. Moving or speaking so slowly that other people could have noticed. Or the opposite - being so fidgety or restless that you have been moving around a lot more than usual: not at all 9. Thoughts that you would be better off or of hurting yourself in some way: not at all Total score: 0 Depression Screening Interpretation: Negative Depression Screening Done: Yes 97673 - PHQ-9 Billing: Yes Source: Developed by Drs. Kobe Rivera, Rika Mccann, Ceasar Nascimento and colleagues, with an educational steffen from [employer]. Thrive Questionnaire Date Thrive assessed: 09/17/24 I am a: Patient What is your living situation today?: I have a steady place to live Within the past 12 months, did the food you bought not last and you didn't have the money to get more?: Never true Within the past 12 months, did you worry whether your food would run out before you got money to buy more?: Never true Do you have trouble paying for medicines?: No Do you have trouble getting transportation to medical appointments?: No Do you have trouble paying your heating and electricity bill?: No Do you have trouble taking care of your child, family member or friend?: No Do you have trouble with day-to-day activities such as bathing, preparing meals, shopping, managing finances, etc.?: No Are you currently unemployed and looking for a job?: No Are you interested in more education?: No Please select the resources that you would like help with: None Currently or been in a relationship where the following occur: No concerns reported THRIVE Score: 0 AUDIT C Alcohol Use Questionnaire (AUDIT-C) 1. How often do you have a drink containing alcohol?: Never Total Score: 0 Score Reviewed/Action Taken: No PAM-7 AMB Questionnaire PAM-7 Date PAM - 7 assessed: 09/24/24 Feeling nervous, anxious, or on edge: 0 = Not at all Not being able to stop or control worryin = Not at all Worrying too much about different things: 0 = Not at all Trouble relaxin = Not at all Being so restless that it is hard to sit still: 0 = Not at all Becoming easily annoyed or irritable: 0 = Not at all Feeling afraid as if something awful might happen: 0 = Not at all Total PAM-7 score (0-4 normal; 5-9 mild; 10-14 moderate; 15-21 severe): 0 Source: Developed by Drs. Kobe Rivera, Rika Mccann, Ceasar Nascimento and colleagues, with an educational steffen from [employer]. Physical exam (Primary Care) Vital Signs: Last Vital Signs Temp 97.9 F 09/24/24 08:01 Pulse 63 09/24/24 08:01 Resp 16 09/24/24 08:01 BP 134/64 09/24/24 08:01 Pulse Ox 98 09/24/24 08:01 Oxygen Delivery Method Room Air 09/24/24 08:01 BMI result Body Mass Index 23.4 Tobacco/Smoking Status: Tobacco use Status Tobacco use date assessed 09/24/24 09/24/24 08:03 Patient Tobacco Use Status Current everyday Tobacco 09/24/24 08:03 e-Cigarette/Vaping Use Never Used 09/24/24 08:03 PHQ-9: PHQ-9 Score PHQ-9: Total score 0 09/24/24 08:09 Depression Screening Interpretation: Negative Thrive Assessment: Date of Thrive Assessment Date Thrive assessed 09/17/24 09/24/24 08:03 Currently or been in a relationship where the following occur: No concerns reported Coding Level of Care Code Est Pt Level 3 (71534) Diagnoses Dyslipidemia E78.5 Osteoporosis M81.0 Left carotid bruit R09.89 Additional Codes PHQ-9 - 41863 - PHQ-9 Billing: Yes ([id number]) Assessment & Plan Assessment & Plan (1) Dyslipidemia: Code(s): E78.5 - Hyperlipidemia, unspecified Category: Medical (2) Osteoporosis: Code(s): M81.0 - Age-related osteoporosis without current pathological fracture Category: Medical (3) Left carotid bruit: Code(s): R09.89 - Other specified symptoms and signs involving the circulatory and respiratory systems Category: Medical Plan . Orders: Orders Comprehensive Burton. Panel Fast Today E78.5 - Hyperlipidemia, unspecified TSH reflex Free T4 Today E78.5 - Hyperlipidemia, unspecified Lipid Panel Today E78.5 - Hyperlipidemia, unspecified Complete Blood Count Auto Diff Today E78.5 - Hyperlipidemia, unspecified UA CC w/rflx Micro + Cult Today E78.5 - Hyperlipidemia, unspecified XR DEXA axial skeleton Today M81.0 - Age-related osteoporosis without current pathological fracture US carotid duplex BI Today R09.89 - Other specified symptoms and signs involving the circulatory and respiratory systems Medications: Changed From rosuvastatin 10 mg PO DAILY 90 tabs 1RF E78.5 - Hyperlipidemia, unspecified To rosuvastatin 20 mg PO DAILY 90 tabs 1RF E78.5 - Hyperlipidemia, unspecified Refilled amlodipine 5 mg PO DAILY 90 days 90 tabs 1RF
== END 2024-09-24 08:56 | disposition home or self-care (01) ==
LOC: HO.HMCC 07:54
PROVIDERS: PCP Nurse Practitioner Family; Visit Provider Nurse Practitioner Family
DX: E78.5 Hyperlipidemia, unspecified (principal); M81.0 Age-related osteoporosis without current pathological fracture; R09.89 Other specified symptoms and signs involving the circulatory and respiratory systems

== ENCOUNTER → 2024-09-24 07:54 | Outpatient (BNVA) | payer MEDICARE, SELFPAY | PROVIDERS: PCP Nurse Practitioner Family; Visit Provider Nurse Practitioner Family | DX: E78.5 Hyperlipidemia, unspecified (principal); M81.0 Age-related osteoporosis without current pathological fracture; R09.89 Other specified symptoms and signs involving the circulatory and respiratory systems | CPT/HCPCS: 96127; 99212 ==

== ENCOUNTER 2024-10-15 07:58 | Outpatient (REF) | payer MEDICARE, SELFPAY ==
--- NOTE | ~2024-10-15 | MM_ITS ---
EXAMINATION: DXA BONE DENSITY AXIAL HISTORY: M81.0 - Age-related osteoporosis without current pathological fracture TECHNIQUE: [employer] Dual energy absorptiometry (DEXA) of the lumbar spine, total left hip, and femoral neck was performed. COMPARISON: Comparison is made with the prior examination dated 06/09/2022. FINDINGS: The bone mineral density of the lumbar spine is 0.843 with a T-score of -2.8, and a Z-score of -0.9. This is indicative of osteoporosis. This represents a BMD change of 1.4% compared to the prior exam. This is not statistically significant. The bone mineral density of the left total hip is 0.726 with a T-score of -2.2, and a Z-score of -0.6. This is indicative of osteopenia. This represents a BMD change of -3.1% compared to the prior exam. This is not statistically significant. The bone mineral density of the left femoral neck is 0.784 with a T-score of -1.8, and a Z-score of 0.0. This is indicative of osteopenia. This represents a BMD change of 1.3% compared to the prior exam. MM/XR DEXA axial skeleton IMPRESSION: Based on bone mineral density, and according to World Health Organization (WHO) criteria, the diagnosis is consistent with osteoporosis. All bone density values are in grams per centimeter squared (g/cm2). Statistically, 68% of repeat scans fall within 1 SD (+/- 0.010 g/cm2 for AP spine L1-L4) and 1 SD (+/- 0.012 g/cm2 for femur total) FRAX is a trademark of the [employer]'s [place] for Metabolic Bone Disease, a World Health Organization (WHO) Collaborating Center. Electronically signed by: Kobe Rivera MD 10/15/2024 09:12 AM EDT
--- OUTSIDE RECORDS SUMMARY | 2024-10-15 08:52 | XMS_ITS | Clinical Summary ---
Author Organization [facility] Address [address] [place] [address] Phone Care Team Providers Care Cooking Casing And Drying Supervisor Name Role Phone Gerald Last NP Primary Care Provider Allergies Active Allergy Reactions Criticality Noted Date [...] 8 (eight) hours. 30 tablet 08/11/2024 Active docusate sodium (COLACE) 100 mg [...] Description 08/21/2024 10:40 AM EDT Office Visit [address] [place] [address] Eric Staley MD Postop check (Primary Dx); Fibroma of right ovary; Serous adenofibroma of left ovary 08/11/2024 7:53 AM EDT Anesthesia Event [facility] [place] [address] [place] [phone] Eric Apodaca MD [facility] 08/11/2024 7:30 AM EDT - 08/11/2024 10:30 AM EDT Surgery [facility] OR [address] [place] [phone] Eric Staley MD Davinci assisted laparoscopic bilateral salpingo-oophorectom y [[id number] (CPT??)] 08/11/2024 5:47 AM EDT - 08/11/2024 12:15 PM EDT Hospital Encounter [facility] Main OR [address] [place] [phone] Eric Staley MD Bilateral tubo-ovarian mass Discharge Disposition: Home or Self Care 07/23/2024 8:28 AM EST - 07/23/2024 11:59 PM EST Hospital Encounter [facility] Xray [address] [place] [phone] Bilateral tubo-ovarian mass Discharge Disposition: Home or Self Care 07/22/2024 1:20 PM EST Consult [address] [phone] Eric Staley MD Bilateral tubo-ovarian mass (Primary [...] ENDOTRACHEAL(NO CHARGE) Routine 08/11/2024 8:17 AM EDT SD LAP SURG W REM ADNEXAL STRUCTURES 08/11/2024 [...] a serous adenofibroma. 08/13/2024 12:26 PM EDT [facility] Gross Description A. Ovary, Right, fallopian [...] white rubbery ligation device at one end. Maritime Engineer sections of the ovary are submitted for frozen section diagnosis. Additional automobile rental representative sections are submitted as follows: 1, [...] white rubbery ligation device at one end. Maritime Engineer sections are submitted for frozen section diagnosis. Additional sections are submitted as follows: 1, frozen section remnant, two pieces 2, ovary with possible residual ovarian parenchyma, two pieces 3 and 4, fibrotic ovary, two pieces each 5, fallopian tube, three pieces Additional sections are submitted after review of initial H&E slides as follows: 5, central cyst, one piece RENEE 08/13/2024 12:26 PM EDT [facility] Intraoperative Consultation A. Ovary, Right, fallopian tube: Low grade spindle cell proliferation/richard or, favor fibroma Per Dr. Luís Marrero notified B. Ovary, Left, fallopian tube: Low grade spindle cell proliferation/richard or, favor fibroma Per Dr. Luís Marrero notified 08/13/2024 12:26 PM EDT [facility] Disclaimer Unless otherwise specified, all tissue is 10% NB formalin fixed and paraffin embedded. 08/13/2024 12:26 PM EDT [facility] Tissue Structure of left ovary / Unknown 08/11/2024 9:10 AM EDT 08/11/2024 9:21 AM EDT Tissue specimen (specimen) Structure of left ovary / Unknown 08/11/2024 9:10 AM EDT 08/11/2024 9:22 AM EDT us Eric Staley MD LAB PATHOLOGY ORDERABLES Final R esult [facility] [address] [place] [address], * Non-gynecologic cytology (08/11/2024 8:39 AM EDT) Final Diagnosis Pelvic washings (ThinPrep, cell block): Negative for malignant cells. 08/12/2024 12:57 PM EDT [facility] Specimen A Adequacy Satisfactory for evaluation 08/12/2024 12:57 PM EDT [facility] Gross Description A. Peritoneal Washings, pelvic washings: Received 50 ml of light yellow fluid; 1 ThinPrep, 1 Cell block Cell block in formalin @1100; total formalin fixation time 10 hours. 08/12/2024 12:57 PM EDT [facility] Disclaimer Unless otherwise specified, all tissue is 10% NB formalin fixed and paraffin embedded. Technical cytopathology services provided by [facility], at [address] [place] [address] (CLIA # [id number]/Laura Welsh MD, Shank Faker.) 08/12/2024 12:57 PM EDT [facility] Wash Specimen obtained by peritoneal lavage / Unknown 08/11/2024 8:39 AM EDT 08/11/2024 10:55 AM EDT us Eric Staley MD LAB CYTOLOGY ORDERABLES Final Re sult [facility] [address] [place] [address], * TH AN ENDOTRACHEAL(NO CHARGE) (08/11/2024 8:17 AM EDT) Narrative Jasmeet Lockett SRNA - 08/11/2024 8:17 AM EDT VIJAY Thayer ? 08/11/2024 ??8:18 AM General Information and Staff Patient location during procedure: OR Anesthesiologist: Eric Apodaca MD Resident/MUSIC MIXER: Meghan Flores CRNA Other anesthesia staff: VIJAY [...] GEMUSE QTc 422 ms GEMUSE P Wave Hawkins 81 degrees GEMUSE R Hawkins 50 degrees GEMUSE T Hawkins 79 degrees GEMUSE ECG Interpretation Sinus bradycardia [...] LAB HEMETOLOGY METHOD 08/05/2024 9:26 AM EDT [facility] RBC 5.10(H) 3.80 - 4.80 M/[facility] LAB HEMETOLOGY METHOD 08/05/2024 9:26 AM EDT [facility] Hemoglobin 14.6 11.5 - 16.0 g/dL LAB HEMETOLOGY METHOD 08/05/2024 9:26 AM EDT [facility] Hematocrit 44.6 35.0 - 47.0 % LAB HEMETOLOGY METHOD 08/05/2024 9:26 AM EDT [facility] MCV 87.8 79.0 - 98.0 FL LAB HEMETOLOGY METHOD 08/05/2024 9:26 AM EDT [facility] MCH 28.7 27.0 - 32.0 pcg LAB HEMETOLOGY METHOD 08/05/2024 9:26 AM EDT [facility] MCHC 32.7 32.0 - 37.0 g/dL LAB HEMETOLOGY METHOD 08/05/2024 9:26 AM EDT [facility] RDW 14.7 11.0 - 15.0 % LAB HEMETOLOGY METHOD 08/05/2024 9:26 AM EDT [facility] Platelets 260 130 - 400 K/mcL LAB HEMETOLOGY METHOD 08/05/2024 9:26 AM EDT [facility] MPV 11.7(H) 7.0 - 11.0 FL LAB HEMETOLOGY METHOD 08/05/2024 9:26 AM EDT [facility] NRBC 0.0 <1.0 % LAB HEMETOLOGY METHOD 08/05/2024 9:26 AM EDT [facility] NRBC Absolute 0.00 <0.10 K/mcL LAB HEMETOLOGY METHOD 08/05/2024 9:26 AM T [facility] Blood Venous blood specimen / Unknown Venipuncture / Unknown 08/05/2024 8:51 AM EDT 08/05/2024 9:13 AM EDT us Eric Staley MD LAB BLOOD ORDERABLES Final Resul t [facility] [address] [place] [address], * Type and screen (08/05/2024 8:51 AM EDT) Only the most recent of2 resultswithin the time period is included. Pathologist [facility] A 08/05/2024 11:54 AM EDT [facility] Rh Type Positive 08/05/2024 11:54 AM EDT [facility] Antibody Screen Negative 08/05/2024 11:54 AM [facility] Blood Venous blood specimen / Unknown Venipuncture / Unknown 08/05/2024 8:51 AM EDT 08/05/2024 9:13 AM EDT Eric Staley MD LAB BLOOD BANK TEST ORDERABLES F inal Result [facility] [address] [place] [address], * Basic metabolic panel (08/05/2024 8:51 AM EDT) [facility] Sodium 139 133 - 145 mmol/L LAB CHEMISTRY METHOD 08/05/2024 10:00 AM [facility] Potassium 4.2 3.5 - 5.5 mmol/L LAB CHEMISTRY METHOD 08/05/2024 10:00 AM [facility] Chloride 106 96 - 110 mmol/L LAB CHEMISTRY METHOD 08/05/2024 10:00 AM [facility] CO2 27 21 - 32 mmol/L LAB CHEMISTRY METHOD 08/05/2024 10:00 AM [facility] Anion Gap 6 3 - 11 LAB CHEMISTRY METHOD 08/05/2024 10:00 AM [facility] Glucose 100 70 - 100 mg/dL LAB CHEMISTRY METHOD 08/05/2024 10:00 AM [facility] BUN 16 5 - 25 mg/dL LAB CHEMISTRY METHOD 08/05/2024 10:00 AM [facility] Creatinine 0.89 0.50 - 1.10 mg/dL LAB CHEMISTRY METHOD 08/05/2024 10:00 AM EDT [facility] eGFR 71 >=60 mL/min/1. 73m2 LAB CHEMISTRY METHOD 08/05/2024 10:00 AM EDT [facility] Comment:Calculation based on the??Chronic Kidney Disease Epidemiology Collaboration (CKD-EPI) equation refit??without adjustment for race. BUN/Creatinine Ratio 18.0 LAB CHEMISTRY METHOD 08/05/2024 10:00 AM EDT [facility] Calcium 9.8 8.5 - 10.5 mg/dL LAB CHEMISTRY METHOD 08/05/2024 10:00 AM EDT [facility] Blood Venous blood specimen / Unknown Venipuncture / Unknown 08/05/2024 8:51 AM EDT 08/05/2024 9:13 AM EDT us Eric Staley MD LAB BLOOD ORDERABLES Final Resul t [facility] [address] [place] [address], [place] [phone] * XR Chest 2 Views (07/23/2024 8:48 AM EST) Anatomical Region Laterality Modality Body Radiographic Rosalind ging 07/28/2024 1:56 PM EST Impressions 07/28/2024 1:57 PM EST Impression: No active pulmonary process identified. Telerad ALECIA ([id number]) -------- FINAL REPORT -------- Dictated By: Betty Landa Dictated Date: 07/28/2024 13:56 ET Assigned Physician: Betty Landa Reviewed and Electronically Signed By: Betty Landa Signed Date: 07/28/2024 13:57 ET Workstation ID: [id number] Transcribed By: Self Edit Transcribed Date: 07/28/2024 [...] No active pulmonary process identified. Telerad ALECIA ([id number]) -------- FINAL REPORT -------- Dictated By: Betty Landa Dictated Date: 07/28/2024 13:56 ET Assigned Physician: Betty Landa Reviewed and Electronically Signed By: Betty Landa Signed Date: 07/28/2024 13:57 ET Workstation ID: [id number] Transcribed By: Self Edit Transcribed Date: 07/28/2024 13:56 ET Eric Staley MD IMG XR PROCEDURES Final Result * (ABNORMAL) CBC auto differential (07/23/2024 8:17 AM EST) WBC 9.6 4.8 - 10.8 K/mcL LAB HEMETOLOGY METHOD 07/23/2024 9:29 AM [facility] RBC 4.90(H) 3.80 - 4.80 M/mcL LAB HEMETOLOGY METHOD 07/23/2024 9:29 AM [facility] Hemoglobin 14.0 11.5 - 16.0 g/dL LAB HEMETOLOGY METHOD 07/23/2024 9:29 AM [facility] Hematocrit 42.5 35.0 - 47.0 % LAB HEMETOLOGY METHOD 07/23/2024 9:29 AM [facility] MCV 86.2 79.0 - 98.0 FL LAB HEMETOLOGY METHOD 07/23/2024 9:29 AM [facility] MCH 28.4 27.0 - 32.0 pcg LAB HEMETOLOGY METHOD 07/23/2024 9:29 AM [facility] MCHC 32.9 32.0 - 37.0 g/dL LAB HEMETOLOGY METHOD 07/23/2024 9:29 AM [facility] RDW 14.6 11.0 - 15.0 % LAB HEMETOLOGY METHOD 07/23/2024 9:29 AM [facility] Platelets 243 130 - 400 K/mcL LAB HEMETOLOGY METHOD 07/23/2024 9:29 AM [facility] MPV 11.9(H) 7.0 - 11.0 FL LAB HEMETOLOGY METHOD 07/23/2024 9:29 AM [facility] NRBC 0.0 <1.0 % LAB HEMETOLOGY METHOD 07/23/2024 9:29 AM [facility] NRBC Absolute 0.00 <0.10 K/mcL LAB HEMETOLOGY METHOD 07/23/2024 9:29 AM [facility] Neutrophils Relative 64.6 % LAB HEMETOLOGY METHOD 07/23/2024 9:29 AM [facility] Lymphocytes Relative 24.0 % LAB HEMETOLOGY METHOD 07/23/2024 9:29 AM [facility] Monocytes Relative 9.0 % LAB HEMETOLOGY METHOD 07/23/2024 9:29 AM [facility] Eosinophils Relative 1.4 % LAB HEMETOLOGY METHOD 07/23/2024 9:29 AM [facility] Basophils Relative 0.8 % LAB HEMETOLOGY METHOD 07/23/2024 9:29 AM [facility] Immature Granulocytes Relative 0.2 % LAB HEMETOLOGY METHOD 07/23/2024 9:29 AM EST [facility] Neutrophils Absolute 6.18 1.50 - 7.00 K/mcL LAB HEMETOLOGY METHOD 07/23/2024 9:29 AM [facility] Lymphocytes Absolute 2.29 1.00 - 5.00 K/mcL LAB HEMETOLOGY METHOD 07/23/2024 9:29 AM EST [facility] Monocytes Absolute 0.86 0.20 - 1.00 K/mcL LAB HEMETOLOGY METHOD 07/23/2024 9:29 AM EST [facility] Eosinophils Absolute 0.13 0.00 - 0.50 K/mcL LAB HEMETOLOGY METHOD 07/23/2024 9:29 AM [facility] Basophils Absolute 0.08 0.00 - 0.20 K/mcL LAB HEMETOLOGY METHOD 07/23/2024 9:29 AM [facility] Immature Granulocytes Absolute 0.02 0.00 - 0.03 K/mcL LAB HEMETOLOGY METHOD 07/23/2024 9:29 AM [facility] Blood Venous blood specimen / Unknown Venipuncture / Unknown 07/23/2024 8:17 AM EST 07/23/2024 9:10 AM EST us Eric Staley MD LAB BLOOD ORDERABLES Final Resul t [facility]) [facility] [address] [place] [address], * SCR MAMMO BI INCL CAD (11/07/2016 [...] Documents on File Type Date Recorded Patient Maritime Engineer Expl anation Power of Road Patcher 08/11/2024 6:26 AM [facility] PROXY [...] currently active code status orders. Care Teams Cooking Casing And Drying Supervisor Relationship Specialty Start Date End Date Gerald Last NP [address] [facility] [place], [place] PCP - General 09/27/23
== END 2024-10-15 07:59 | disposition home or self-care (01) ==
LOC: HO.MAMMO 07:58
PROVIDERS: PCP Nurse Practitioner Family; Visit Provider Nurse Practitioner Family
DX: M81.0 Age-related osteoporosis without current pathological fracture (principal)
CPT/HCPCS: 77080

== ENCOUNTER → 2024-10-15 08:15 | Outpatient (BNV) | payer MEDICARE, SELFPAY | PROVIDERS: PCP Nurse Practitioner Family; Visit Provider Radiology Diagnostic Radiology | DX: E28.39 Other primary ovarian failure (principal) | CPT/HCPCS: 77080 ==

== ENCOUNTER 2024-10-24 08:00 | Outpatient (REF) | payer MEDICARE, SELFPAY ==
--- NOTE | ~2024-10-24 | US_ITS ---
CLINICAL HISTORY: R09.89 - Other specified symptoms and signs involving the circulatory an... US Bilateral Carotid Duplex Comparison: None Findings: No significant plaque within the common carotid arteries. Moderate plaque within the carotid bulbs. Normal color doppler and waveforms morphology. Peak systolic velocities: Right CCA: 77 cm/s. Right ICA: 82 cm/s. ICA/CCA ratio: 0.53. Right ECA: Unremarkable. Right vertebral artery flow antegrade. Left CCA: 64 cm/s. Left ICA: 76 cm/s. ICA/CCA ratio: 0.87. Left ECA: Unremarkable. Left vertebral artery flow antegrade. IMPRESSION: Normal carotid velocities, no significant stenosis (0-49% stenosis). This document has been electronically signed by: Jeremiah Leon MD on 10/25/2024 09:25:21
--- OUTSIDE RECORDS SUMMARY | 2024-10-24 08:02 | XMS_ITS | Clinical Summary ---
Author Organization [facility] Address [address] [place] [address] Phone Care Team Providers Care Leaflet Or Newspaper Deliverer Name Role Phone Gerald Last NP Primary [...] Description 08/21/2024 10:40 AM EDT Office Visit Breast Care [facility] [address] [phone] Eric Staley MD Postop check (Primary Dx); Fibroma of right ovary; Serous adenofibroma of left ovary 08/11/2024 7:53 AM EDT Anesthesia Event [facility] OR [address] [place] [phone] Eric Apodaca MD [place], [place] [facility] 08/11/2024 7:30 AM EDT - 08/11/2024 10:30 AM EDT Surgery [facility] OR [address] [place] [phone] Eric Staley MD Davinci assisted laparoscopic bilateral salpingo-oophorectom y [[id number] (CPT??)] 08/11/2024 5:47 AM EDT - 08/11/2024 12:15 PM EDT Hospital Encounter [facility] OR [address] [place] [phone] Eric Staley MD Bilateral tubo-ovarian mass Discharge Disposition: Home or Self Care from Last 3 Months Surgical History Surgery [...] ENDOTRACHEAL(NO CHARGE) Routine 08/11/2024 8:17 AM EDT [facility] SURG W REM ADNEXAL STRUCTURES 08/11/2024 7:53 AM EDT Benign neoplasm of left ovary Benign neoplasm of right ovary Case Notes 23-HR BED PROCEDURAL ECG Routine 08/05/2024 9:01 AM EDT BASIC METABOLIC PANEL Routine 08/05/2024 8:51 AM EDT COMPLETE BLOOD COUNT Routine 08/05/2024 8:51 AM EDT TYPE AND SCREEN Routine 08/05/2024 8:51 AM EDT SCR MAMMO BI INCL CAD Routine 11/07/2016 [...] a serous adenofibroma. 08/13/2024 12:26 PM EDT [facility] Gross Description A. Ovary, [...] white rubbery ligation device at one end. Vessel Operator sections of the ovary are submitted for frozen section diagnosis. Additional dairy supplies sales representative sections are submitted as follows: 1, [...] white rubbery ligation device at one end. Vessel Operator sections are submitted for frozen section diagnosis. Additional sections are submitted as follows: 1, frozen section remnant, two pieces 2, ovary with possible residual ovarian parenchyma, two pieces 3 and 4, fibrotic ovary, two pieces each 5, fallopian tube, three pieces Additional sections are submitted after review of initial H&E slides as follows: 5, central cyst, one piece RENEE 08/13/2024 12:26 PM [facility] Intraoperative Consultation A. Ovary, Right, fallopian tube: Low grade spindle cell proliferation/richard or, favor fibroma Per Dr. Luís Marrero notified B. Ovary, Left, fallopian tube: Low grade spindle cell proliferation/richard or, favor fibroma Per Dr. Luís Marrero notified 08/13/2024 12:26 PM [facility] Disclaimer Unless otherwise specified, all tissue is 10% NB formalin fixed and paraffin embedded. 08/13/2024 12:26 PM [facility] Tissue Structure of left ovary / Unknown 08/11/2024 9:10 AM EDT 08/11/2024 9:21 AM EDT Tissue specimen (specimen) Structure of left ovary / Unknown 08/11/2024 9:10 AM EDT 08/11/2024 9:22 AM EDT Eric Staley MD LAB PATHOLOGY ORDERABLES Final R esult Performing Organization Address [facility]/ZIP Co de Phone Number [facility] [address] [place] [address], [place] [phone] * Non-gynecologic cytology (08/11/2024 8:39 AM EDT) Final Diagnosis Pelvic washings (ThinPrep, cell block): Negative for malignant cells. 08/12/2024 12:57 PM EDT [facility] Specimen A Adequacy Satisfactory for evaluation 08/12/2024 12:57 PM EDT [facility] Gross Description A. Peritoneal Washings, pelvic washings: Received 50 ml of light yellow fluid; 1 ThinPrep, 1 Cell block Cell block in formalin @1100; total formalin fixation time 10 hours. 08/12/2024 12:57 PM EDT [facility] Disclaimer Unless otherwise specified, all tissue is 10% NB formalin fixed and paraffin embedded. Technical cytopathology services provided by [facility], at [address] [place] [address] (CLIA # [id number]/Laura Welsh MD, Assistant Finance Director.) 08/12/2024 12:57 PM EDT [facility] Wash Specimen obtained by peritoneal lavage / Unknown 08/11/2024 8:39 AM EDT 08/11/2024 10:55 AM EDT us Eric Staley MD LAB CYTOLOGY ORDERABLES Final Re sult Performing Organization Address [facility] Co de Phone Number [facility] [address] [place] [address], * TH AN ENDOTRACHEAL(NO CHARGE) (08/11/2024 8:17 AM EDT) Jasmeet HardinVIJAY - 08/11/2024 8:17 AM EDT Jasmeet VIJAY Lockett ? 08/11/2024 ??8:18 AM General Information and Staff Patient location during procedure: OR Anesthesiologist: Eric Apodaca MD Resident/JUNIOR AUTOMATION ENGINEER: Meghan Flores CRNA Other anesthesia staff: VIJAY [...] difficulty assessment: 1 - vent by mask Eric Apodaca MD ANESTHESIA ORDERABLES Final Re sult * ECG 12 lead - Procedural (No Charge) (08/05/2024 9:01 AM EDT) Ventricular Rate ECG 57 BPM GEMUSE Atrial Rate 57 BPM GEMUSE P-R Interval 130 ms GEMUSE QRS Duration 82 ms GEMUSE Q-T Interval 434 ms GEMUSE QTc 422 ms GEMUSE P Wave Hydes 81 degrees GEMUSE R Hydes 50 degrees GEMUSE T Hydes 79 degrees GEMUSE ECG Interpretation Sinus bradycardia [...] LAB HEMETOLOGY METHOD 08/05/2024 9:26 AM EDT [facility] RBC 5.10(H) 3.80 - 4.80 M/mcL LAB HEMETOLOGY METHOD 08/05/2024 9:26 AM EDT [facility] Hemoglobin 14.6 11.5 - 16.0 g/dL LAB HEMETOLOGY METHOD 08/05/2024 9:26 AM EDT [facility] Hematocrit 44.6 35.0 - 47.0 % LAB HEMETOLOGY METHOD 08/05/2024 9:26 AM EDT [facility] MCV 87.8 79.0 - 98.0 FL LAB HEMETOLOGY METHOD 08/05/2024 9:26 AM EDT [facility] MCH 28.7 27.0 - 32.0 pcg LAB HEMETOLOGY [facility] MCHC 32.7 32.0 - 37.0 g/dL LAB HEMETOLOGY METHOD 08/05/2024 9:26 AM EDT [facility] RDW 14.7 11.0 - 15.0 % LAB HEMETOLOGY METHOD 08/05/2024 [facility] Platelets 260 130 - 400 K/mcL LAB HEMETOLOGY METHOD 08/05/2024 9:26 AM EDT [facility] MPV 11.7(H) 7.0 - 11.0 FL LAB HEMETOLOGY METHOD 08/05/2024 9:26 AM EDT [facility] NRBC 0.0 <1.0 % LAB HEMETOLOGY METHOD 08/05/2024 9:26 AM EDT [facility] NRBC Absolute 0.00 <0.10 K/mcL LAB HEMETOLOGY METHOD 08/05/2024 9:26 AM EDT [facility] Blood Venous blood specimen / Unknown Venipuncture / Unknown 08/05/2024 8:51 AM EDT 08/05/2024 9:13 AM EDT us Eric Staley MD LAB BLOOD ORDERABLES Final Resul t Performing Organization Address [facility]/ZIP Co de Phone Number [facility] [address] [place] [address], [place] [phone] * Type and screen (08/05/2024 8:51 AM EDT) ABO Group A 08/05/2024 11:54 AM EDT [facility] Rh Type Positive 08/05/2024 11:54 AM EDT [facility] Antibody Screen Negative 08/05/2024 11:54 AM EDT [facility] Blood Venous blood specimen / Unknown Venipuncture / Unknown 08/05/2024 8:51 AM EDT 08/05/2024 9:13 AM EDT us Eric Staley MD LAB BLOOD BANK TEST ORDERABLES F inal Result [facility] [address] [place] [address], [place] [phone] * Basic metabolic panel (08/05/2024 8:51 AM EDT) Sodium 139 133 - 145 mmol/L LAB CHEMISTRY METHOD [facility] Potassium 4.2 3.5 - 5.5 mmol/L LAB CHEMISTRY METHOD 08/05/2024 10:00 AM [facility] Chloride 106 96 - 110 mmol/L LAB CHEMISTRY METHOD 08/05/2024 10:00 AM [facility] CO2 27 21 - 32 mmol/L LAB CHEMISTRY METHOD 08/05/2024 10:00 AM [facility] Anion Gap 6 3 - 11 LAB CHEMISTRY METHOD 08/05/2024 10:00 AM [facility] Glucose 100 70 - 100 mg/dL LAB CHEMISTRY METHOD 08/05/2024 10:00 AM [facility] BUN 16 5 - 25 mg/dL LAB CHEMISTRY METHOD 08/05/2024 10:00 AM [facility] Creatinine 0.89 0.50 - 1.10 mg/dL LAB CHEMISTRY METHOD 08/05/2024 10:00 AM [facility] eGFR 71 >=60 mL/min/1. 73m2 LAB CHEMISTRY METHOD 08/05/2024 10:00 AM [facility] Comment:Calculation based on the??Chronic Kidney Disease Epidemiology Collaboration (CKD-EPI) equation refit??without adjustment for race. BUN/Creatinine Ratio 18.0 LAB CHEMISTRY METHOD 08/05/2024 10:00 AM [facility] Calcium 9.8 8.5 - 10.5 mg/dL LAB CHEMISTRY METHOD 08/05/2024 10:00 AM [facility] Blood Venous blood specimen / Unknown Venipuncture / Unknown 08/05/2024 8:51 AM EDT 08/05/2024 9:13 AM EDT us Eric Staley MD LAB BLOOD ORDERABLES Final Resul t [facility] [address] [place] [address], [place] [phone] * SCR MAMMO BI INCL CAD (11/07/2016 [...] to Health Maintenance Insurance [employer] [address] Advance Directives Documents on File Type Date Recorded Patient Vessel Operator Expl anation Power of Soil Analyst 08/11/2024 6:26 AM [facility] [...] currently active code status orders. Care Teams Leaflet Or Newspaper Deliverer Relationship Specialty Start Date End Date Gerald Last NP [address] [facility] [place] PCP - General 09/27/23
== END 2024-10-24 08:01 | disposition home or self-care (01) ==
LOC: HO.HMGCX 08:00
PROVIDERS: PCP Nurse Practitioner Family; Visit Provider Nurse Practitioner Family
DX: R09.89 Other specified symptoms and signs involving the circulatory and respiratory systems (principal)
CPT/HCPCS: 93880

== ENCOUNTER → 2024-10-24 08:24 | Outpatient (BNV) | payer MEDICARE, SELFPAY | PROVIDERS: PCP Nurse Practitioner Family; Visit Provider Specialist | DX: I65.29 Occlusion and stenosis of unspecified carotid artery (principal) | CPT/HCPCS: 93880 ==

== ENCOUNTER 2025-02-06 06:20 | Outpatient (REF) | payer MEDICARE, SELFPAY ==
--- OUTSIDE RECORDS SUMMARY | 2025-02-06 06:24 | XMS_ITS | Clinical Summary ---
Author Organization [facility] Address [address] [place] [address] Phone Care Team Providers Care Laborer Filter Plant Name Role Phone Gerald Last NP Primary [...] Resolved Date Bilateral tubo-ovarian mass 07/22/2024 08/11/2024 Surgical History Surgery Date Site/Laterality Comments TUBAL [...] 63 08/21/2024 10:57 AM EDT Temperature 36.4 C (97.6 F) 08/21/2024 10:57 AM EDT Respiratory Rate 18 08/11/2024 11:06 AM EDT [...] 2) 10/15/1974 Breast Cancer Screening 11/07/2018 11/07/2016 Cholesterol Screening (Lipid Panel) 03/05/2024 Colorectal Cancer Screening: Colonoscopy 03/05/2024 Hepatitis C Screening 03/05/2024 Medicare Annual Wellness Visit 03/05/2024 Osteoporosis Screening (Bone Density Screening) 03/05/2024 Social Influencers of Health Screening 03/05/2024 Depression Screening 05/28/2024 COVID-19 Vaccine (3 - 2024-2 6 season) 2025 05/17/2021, 09/02/2020 Influenza Vaccine (#1) 2025 Hypertension/CHF/CAD Annual BMP Blood Test 08/05/2025 [...] Procedure Name Priority Date/Time Associated Diagnosis Comments BASIC METABOLIC PANEL Routine 08/05/2024 8:51 AM EDT SCR MAMMO BI INCL CAD Routine 11/07/2016 5:49 PM EDT Encounter for screening mammogram for malignant neoplasm of breast from Last 3 Months or Most Recently Relevant to Health Maintenance Results * Basic metabolic panel (08/05/2024 8:51 AM [...] METHOD 08/05/2024 10:00 AM [facility] eGFR 71 >=60 mL/min/1. 73m2 LAB CHEMISTRY METHOD 08/05/2024 10:00 AM [facility] Comment:Calculation based on the Chronic Kidney Disease Epidemiology Collaboration (CKD-EPI) equation refit without adjustment for race. BUN/Creatinine Ratio 18.0 LAB CHEMISTRY METHOD 08/05/2024 10:00 AM [facility] Calcium 9.8 8.5 - 10.5 mg/dL LAB CHEMISTRY METHOD 08/05/2024 10:00 AM [facility] Blood Venous blood specimen / Unknown Venipuncture / Unknown 08/05/2024 8:51 AM EDT 08/05/2024 9:13 AM EDT us Eric Staley MD LAB BLOOD ORDERABLES Final Resul t [facility] [address] [place] [address], * SCR MAMMO BI INCL CAD (11/07/2016 [...] reviewed with CAD and compared to previous. The breast tissue is dense, limiting sensitivity. No suspicious mass, architectural distortion or suspicious calcifications are identified. IMPRESSION: : Dense breast tissue, limiting the sensitivity of mammography. No mammographic evidence of malignancy. MRI examination is [...] Documents on File Type Date Recorded Patient Project Construction Assistant Manager Expl anation Power of Customer Program Manager 08/11/2024 6:26 AM [facility] [...] currently active code status orders. Care Teams Laborer Filter Plant Relationship Specialty Start Date End Date [facility] [place] [facility] - General 09/27/23
[2025-02-06 11:24] LABS: Free T4 (Free Thyroxine) 0.49 ng/dL (0.71-1.85); Thyroid Stimulating Hormone 33.14 uIU/mL (0.32-4.0)
== END 2025-02-06 06:21 | disposition home or self-care (01) ==
LOC: HO.HMGCLDS 06:20
PROVIDERS: PCP Nurse Practitioner Family; Visit Provider Internal Medicine Endocrinology, Diabetes & Metabolism
DX: Z13.29 Encounter for screening for other suspected endocrine disorder (principal); R79.89 Other specified abnormal findings of blood chemistry
CPT/HCPCS: 36415; 83520; 84439; 84443; 84481

== ENCOUNTER 2025-02-17 09:59 | Outpatient (AMB) | payer MEDICARE, SELFPAY ==
[2025-02-17 10:12] VITALS: BP 118/60; PULSE 57; O2SAT 98; BMI 23.5
--- NOTE | 2025-02-17 10:12 | MHC.OFFVIS ---
Vital Signs 02/17/25 10:12 Height 5 ft 1 in Weight 124 lb 5.451 oz BMI 23.5 BP 118/60 Blood Pressure Location Rt brachial Position Sitting Pulse 57 Pulse Source Pulse Oximeter Pulse Oximetry (%) 98 Oxygen Delivery Method Room Air Intake Visit Reasons: Osteoporosis Intake Note: Patient present today for Osteoporosis, last DEXA was on 10/15/24 at [facility]. Boat Driver Required: No Accompanied by: Self / Same As Patient Allergies amoxicillin Allergy (Mild, Verified 02/17/25 10:16) hives sulfamethoxazole (From Bactrim) Allergy (Mild, Verified 02/17/25 10:16) Hives trimethoprim (From Bactrim) Allergy (Mild, Verified 02/17/25 10:16) Hives Medication List - Last Reconciled 02/17/25 by Kobe Rai MD amlodipine 5 mg PO DAILY 90 days calcium carbonate-vitamin D3 600 mg-12.5 mcg (500 unit) (Calcium with Vit D3) 1 cap PO BID 30 days methimazole 5 mg (1/2 x 10 mg) PO DAILY rosuvastatin 20 mg PO DAILY HPI Comments Details: 69 YO Female with PMHx hyperthyroidism is seen in consultation at the request of PCP for Osteoporosis. First diagnosed in 1 yr ago .Never saw specialist Not Received treatment in the past No history of pathologic fracture or ONJ. Has few servings of dietary calcium per day in the form of broccoli, ice cream . Takes Calcium supplement 1200 mg daily in divided doses. Takes 1000 IU of Vitamin D daily. Denies ever using PPI, anticoagulant, antiepileptic or glucocorticoid medication. 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 UTD on dental cleanings and sees dentist every 6 months. Has planned upcoming dental work or extractions dentures Tobaccouse 1-2 cigs /wk . No heavy ETOH use . DXA dated 10/15/24:FINDINGS: The bone mineral density of the lumbar spine is 0.843 with a T-score of -2.8, and a Z-score of -0.9. This is indicative of osteoporosis. This represents a BMD change of 1.4% compared to the prior exam. This is not statistically significant. The bone mineral density of the left total hip is 0.726 with a T-score of -2.2, and a Z-score of -0.6. This is indicative of osteopenia. This represents a BMD change of -3.1% compared to the prior exam. This is not statistically significant. The bone mineral density of the left femoral neck is 0.784 with a T-score of -1.8, and a Z-score of 0.0. This is indicative of osteopenia. This represents a BMD change of 1.3% compared to the prior exam. MM/XR DEXA axial skeleton IMPRESSION: Based on bone mineral density, and according to World Health Organization (WHO) criteria, the diagnosis is consistent with osteoporosis. Labs: [facility] Medical History Osteoporosis Surgical History History of partial hysterectomy H/O tubal ligation Family History Mother Breast cancer Sister Breast cancer Social History Household Members: Spouse Housing: House Alcohol intake: never Patient Tobacco Use Status: Current everyday Tobacco user Cigarettes Per Day: 4 e-Cigarette/Vaping Use: Never Used Second Hand Smoke Exposure: No service: No Current occupational status: employed Current occupation: [employer] Current occupational exposures/hazards: Yes Sexual orientation: Straight/Heterosexual Gender identity: Female Cognitive needs: No Hearing needs: No Vision needs: No Physical Exam Vital Signs: Last Vital Signs Pulse 57 02/17/25 10:12 BP 118/60 02/17/25 10:12 Pulse Ox 98 02/17/25 10:12 Oxygen Delivery Method Room Air 02/17/25 10:12 BMI result Body Mass Index 23.5 There are no Cushingoid features. Absence of blue sclera. Absence of kyphosis. Thyroid gland is of nl size and weighs 15 gms. There are no thyroid nodules palpated. Lungs CTA. Heart S1 S2 Reg R/R Abdominal exam benign. Muscle strength 5/5 . Examination of spine reveals absence of tenderness on palpation Assessment & Plan Assessment & Plan (1) Osteoporosis: Code(s): M81.0 - Age-related osteoporosis without current pathological fracture Category: Medical Plan: Is a 69-year-old white female with a history of osteoporosis and history of hyperthyroidism due to Graves disease. Rule out other secondary causes. Plan is to check a basic metabolic panel, calcium, albumin, 24 hour urine for calcium and creatinine, 25 hydroxy vitamin-D, phosphorus level, urine immunofixation. Will ensure 1200 mg of calcium and continued vitamin-D supplementation. Assuming secondary workup was negative could consider use of an anti resorptive agent like oral or intravenous bisphosphonate or Prolia Orders: Orders Albumin Level Today M81.0 - Age-related osteoporosis without current pathological fracture Creatinine, 24 Hr Group Today M81.0 - Age-related osteoporosis without current pathological fracture Phosphorus Today M81.0 - Age-related osteoporosis without current pathological fracture Basic Metabolic Panel Today M81.0 - Age-related osteoporosis without current pathological fracture Calcium Today M81.0 - Age-related osteoporosis without current pathological fracture Vitamin D 25-OH Total Today M81.0 - Age-related osteoporosis without current pathological fracture Calcium, 24 Hr Ur Today M81.0 - Age-related osteoporosis without current pathological fracture Immunofixation, Random Urine Today M81.0 - Age-related osteoporosis without current pathological fracture Coding Level of Care Code Est Pt Level 4 (28400) Diagnoses Osteoporosis M81.0
--- OUTSIDE RECORDS SUMMARY | 2025-02-17 12:04 | XMS_ITS | Clinical Summary ---
Author Organization [facility] Address [address] [place] [address] Phone Care Team Providers Care Button Clamper Name Role Phone Gerald Last NP Primary [...] 08/05/2024 10:00 AM [facility] Potassium 4.2 3.5 - [...] [facility] Comment:Calculation based on the Chronic [...] Resul t [facility] [address] [place] [address], * SCR MAMMO BI INCL CAD (11/07/2016 [...] Documents on File Type Date Recorded Patient Woolen Tester Expl anation Power of Dosier Operator 08/11/2024 6:26 AM [facility] [...] currently active code status orders. Care Teams Button Clamper Relationship Specialty Start Date End Date Gerald Last NP [facility] [place] PCP - General 09/27/23
== END 2025-02-17 11:09 | disposition home or self-care (01) ==
LOC: HO.ENCR 10:00
PROVIDERS: PCP Nurse Practitioner Family; Visit Provider Internal Medicine Endocrinology, Diabetes & Metabolism
DX: M81.0 Age-related osteoporosis without current pathological fracture (principal)
CPT/HCPCS: 99214

== ENCOUNTER → 2025-02-17 09:59 | Outpatient (BNVA) | payer MEDICARE, SELFPAY | PROVIDERS: PCP Nurse Practitioner Family; Visit Provider Internal Medicine Endocrinology, Diabetes & Metabolism | DX: M81.0 Age-related osteoporosis without current pathological fracture (principal) | CPT/HCPCS: 99212 ==

== ENCOUNTER 2025-03-20 06:05 | Outpatient (REF) | payer MEDICARE, SELFPAY ==
--- OUTSIDE RECORDS SUMMARY | 2025-03-20 06:07 | XMS_ITS | Clinical Summary ---
Author Organization [facility] Address [address] [place] [address] Phone Care Team Providers Care Head Pumper Name Role Phone Gerald Last NP Primary [...] Safety Answer Date Record ed Physical Abuse Unrecognized value 08/11/2024 Verbal Abuse Unrecognized value 08/11/2024 Comments No Sex and Gender Information [...] Health Maintenance Due Date Last Done Comments Colorectal Cancer Screening: Colonoscopy 1955 DTaP,Tdap,and Td Vaccines (1 - Tdap) 10/15/1974 Zoster Vaccines (1 of 2) 10/15/1974 Breast Cancer Screening 11/07/2018 11/07/2016 Cholesterol Screening (Lipid Panel) 03/05/2024 Hepatitis C Screening 03/05/2024 Medicare Annual [...] mmol/L LAB CHEMISTRY METHOD 08/05/2024 10:00 AM [facility] Potassium 4.2 3.5 - 5.5 mmol/L LAB CHEMISTRY METHOD 08/05/2024 10:00 AM [facility] Chloride 106 96 - 110 mmol/L LAB CHEMISTRY METHOD 08/05/2024 10:00 AM [facility] CO2 27 21 - 32 mmol/L LAB CHEMISTRY METHOD 08/05/2024 10:00 AM [facility] Anion Gap 6 3 - 11 LAB CHEMISTRY METHOD 08/05/2024 10:00 AM [facility] Glucose 100 70 - 100 mg/dL LAB CHEMISTRY METHOD 08/05/2024 10:00 AM [facility] BUN 16 5 - 25 mg/dL LAB CHEMISTRY METHOD 08/05/2024 10:00 AM [facility] Creatinine 0.89 0.50 - 1.10 mg/dL LAB CHEMISTRY METHOD 08/05/2024 10:00 AM [facility] eGFR 71 >=60 mL/min/1. 73m2 LAB CHEMISTRY METHOD 08/05/2024 10:00 AM [facility] Comment:Calculation based on the Chronic Kidney Disease Epidemiology Collaboration (CKD-EPI) equation refit without adjustment for race. BUN/Creatinine Ratio 18.0 LAB CHEMISTRY METHOD 08/05/2024 10:00 AM [facility] Calcium 9.8 8.5 - 10.5 mg/dL LAB CHEMISTRY METHOD 08/05/2024 10:00 AM [facility] Blood Venous blood specimen / Unknown Venipuncture / Unknown 08/05/2024 8:51 AM EDT 08/05/2024 9:13 AM EDT us Eric Staley MD LAB BLOOD ORDERABLES Final Resul t [facility] [address] [place] [address], [place] [phone] * SCR MAMMO BI INCL CAD (11/07/2016 [...] Documents on File Type Date Recorded Patient Sales Order Processor Expl anation Power of Mission Systems Engineer 08/11/2024 6:26 AM [facility] [...] currently active code status orders. Care Teams Head Pumper Relationship Specialty Start Date End Date Gerald Last NP [address] [place], [place] PCP - General 09/27/23
[2025-03-20 10:11] LABS: MANUAL DIFF FLAG NO
[2025-03-20 10:18] LABS: Appearance Urine Clear; Glucose Urine UA Negative (Negative); PH 6.5 (5.0-9.0); Specific Gravity - Urine <= 1.005 (1.005-1.025); UMIC TRIGGER UACC YES
[2025-03-20 10:19] LABS: Hematocrit 42.3 % (37.0-47.0); Hemoglobin 14.1 g/dl (12.0-16.0); Imm Gran Abs Auto 0.03 X10*3/uL (0.00-0.03); Imm Gran Pct Auto 0.3 % (0.0-0.4); Lymphocytes Absolute Auto 1.9 X10*3/uL (1.2-4.9); Mean Corpuscular HGB Conc 33.3 g/dl (31.0-35.0); Mean Corpuscular Hemoglobin 29.0 pg (27.0-33.0); Mean Corpuscular Volume 86.9 fL (80.0-98.0); NRBC Abs Auto 0.000 X10*3/uL (0.0-0.012); NRBC Pct Auto 0.0 /100WBC (0.0-0.2); Platelet Count 273 X10*3/uL (160-400); Red Blood Count 4.87 X10*6/uL (4.20-5.50); White Blood Count 10.3 X10*3/uL (4.8-10.8)
[2025-03-20 10:39] LABS: Alanine Aminotransferase 20 U/L (0-31); Albumin Level 4.4 g/dL (3.5-5.0); Alkaline Phosphatase 68 U/L (39-117); Anion Gap 11 (12-20); Aspartate Amino Transferase 25 U/L (5-31); Blood Urea Nitrogen 13 mg/dL (9-16); Calcium 9.4 mg/dL (8.4-10.2); Carbon Dioxide 25 mmol/L (22-29); Chloride 110 mmol/L (96-108); Cholesterol 171 mg/dL (<200); Estimated Glomerular Filt Rate > 60; HDL Cholesterol 81 mg/dL (>40); Potassium 3.5 mmol/L (3.3-5.1); Sodium 142 mmol/L (135-145); Total Protein 7.3 g/dL (6.5-8.0); Triglycerides 76 mg/dL (<150)
[2025-03-20 11:54] LABS: Free T4 (Free Thyroxine) 0.83 ng/dL (0.71-1.85)
== END 2025-03-20 06:06 | disposition home or self-care (01) ==
LOC: HO.HMGCLDS 06:05
PROVIDERS: PCP Nurse Practitioner Family; Visit Provider Nurse Practitioner Family
DX: E78.5 Hyperlipidemia, unspecified (principal)
CPT/HCPCS: 36415; 80053; 80061; 81001; 84439; 84443; 85025

== ENCOUNTER 2025-03-25 08:10 | Outpatient (AMB) | payer MEDICARE, SELFPAY ==
[2025-03-25 08:42] VITALS: BP 152/80; PULSE 63; RESP 16; O2SAT 97; BMI 23.6
--- NOTE | 2025-03-25 08:42 | MHC.PC.OV ---
Vital Signs 03/25/25 08:42 Height 5 ft 1 in Weight 125 lb BMI 23.6 BP 152/80 H Blood Pressure Location Lt brachial Position Sitting Respiration 16 Pulse 63 Pulse Source Pulse Oximeter Pulse Oximetry (%) 97 Oxygen Delivery Method Room Air Intake Visit Reasons: 6 m follow up Manager Office Required: No Accompanied by: Self / Same As Patient Allergies amoxicillin Allergy (Mild, Verified 03/25/25 08:48) hives sulfamethoxazole (From Bactrim) Allergy (Mild, Verified 03/25/25 08:48) Hives trimethoprim (From Bactrim) Allergy (Mild, Verified 03/25/25 08:48) Hives Tobacco use date assessed: 03/25/25 Dental Screening Dental Screen Date: 09/24/23 HPI 6 m follow up HPI Details Chief Complaint The patient presents for a follow-up visit for dyslipidemia. History of Present Illness The patient is a 69-year-old female presenting for a follow-up for dyslipidemia. She is on a statin, and her cholesterol is fairly well controlled. Recent lab work showed microscopic hematuria. She has been evaluated by urology in the past, but a previously mentioned cystoscopy was not performed. Urine cytology from April of last year was negative. The patient has a family history of bladder carcinoma. She continues to smoke, although she has reduced her use, and she refuses low-dose CT scans. Social History - Tobacco Use: The patient continues to smoke but reports she has cut down. Health Maintenance - The patient has a family history of bladder carcinoma. - The patient refuses low-dose CT scans for lung cancer screening. - Urology consultation has occurred in the past, but a recommended cystoscopy was not performed. -declined vaccinations Review of Systems - Constitutional: Denies dizziness. - Cardiovascular: Denies chest pain. - Respiratory: Denies shortness of breath. - Genitourinary: Denies gross hematuria or pelvic pain. Physical Exam General: Cooperative, healthy appearing, comfortable, no acute distress and well developed Orientation: Patient oriented x3 Limitations: No limitations Head: Normal to inspection Ears: Hearing grossly normal bilaterally Nose: Normal external nose present Face and sinus: Normal facial exam Eyes: Appearance normal, both eyes and all related structures Neck: Normal visual inspection and Yes full ROM Respiratory: Lungs were fairly clear bilaterally. Normal respiratory effort and able to speak in complete sentences. Cardiovascular: Regular rate and rhythm. Normal S1 and S2 GI: Normal to inspection. Soft to palpation and nontender Skin: No rashes or lesions noted Neuro: Patient oriented x3 Extremities: Normal to inspection Results - Labs: Recent labs show microscopic hematuria. - Tests and Diagnostics: Urine cytology last year in April was negative. Plan 1. Dyslipidemia The patient's dyslipidemia is well-controlled on her current statin therapy. 2. Microscopic Hematuria The patient presents with microscopic hematuria, a history of smoking, and a family history of bladder carcinoma. She had a negative urine cytology last April. A cystoscopy was previously recommended by urology but not completed. The urology office will be contacted to schedule this procedure. 3. Tobacco Use The patient continues to smoke, though she reports having cut down. She refuses low-dose CT scans for lung cancer screening. Discussion Notes I noted the patient is here for a follow-up of her dyslipidemia, which is well-controlled on her current statin. We reviewed recent lab results showing microscopic hematuria. Given her risk factors, including continued smoking and a family history of bladder cancer, I reiterated the importance of a cystoscopy, which was previously recommended but not completed. I informed the patient that I will contact the urology office to facilitate scheduling this procedure for her. Patient Instructions - Continue to take your cholesterol medication as directed. - We will contact the urology office to help you schedule a cystoscopy, a procedure to look inside your bladder. - Please follow up with the urology specialist for this important test. - Continue your efforts to reduce and eventually quit smoking. [facility] Medical History Osteoporosis Surgical History History of partial hysterectomy H/O tubal ligation Family History Mother Breast cancer Sister Breast cancer Social History Household Members: Spouse Housing: House Alcohol intake: never Patient Tobacco Use Status: Current everyday Tobacco user Cigarettes Per Day: 4 e-Cigarette/Vaping Use: Never Used Second Hand Smoke Exposure: No service: No Current occupational status: employed Current occupation: [employer] Current occupational exposures/hazards: Yes Sexual orientation: Straight/Heterosexual Gender identity: Female Cognitive needs: No Hearing needs: No Vision needs: No Questionnaire Thrive Questionnaire Date Thrive assessed: 09/17/24 I am a: Patient What is your living situation today?: I have a steady place to live Within the past 12 months, did the food you bought not last and you didn't have the money to get more?: Never true Within the past 12 months, did you worry whether your food would run out before you got money to buy more?: Never true Do you have trouble paying for medicines?: No Do you have trouble getting transportation to medical appointments?: No Do you have trouble paying your heating and electricity bill?: No Do you have trouble taking care of your child, family member or friend?: No Do you have trouble with day-to-day activities such as bathing, preparing meals, shopping, managing finances, etc.?: No Are you currently unemployed and looking for a job?: No Are you interested in more education?: No Please select the resources that you would like help with: None Currently or been in a relationship where the following occur: No concerns reported THRIVE Score: 0 PAM-7 AMB Questionnaire PAM-7 Date PAM - 7 assessed: 09/24/24 Source: Developed by Drs. Kobe Rivera, Rika Mccann, Ceasar Nascimento and colleagues, with an educational steffen from [employer]. Physical exam (Primary Care) Vital Signs: Last Vital Signs Pulse 63 03/25/25 08:42 Resp 16 03/25/25 08:42 BP 152/80 H 03/25/25 08:42 Pulse Ox 97 03/25/25 08:42 Oxygen Delivery Method Room Air 03/25/25 08:42 BMI result Body Mass Index 23.6 Tobacco/Smoking Status: Tobacco use Status Tobacco use date assessed 03/25/25 03/25/25 08:50 Patient Tobacco Use Status Current everyday Tobacco 03/25/25 08:50 e-Cigarette/Vaping Use Never Used 03/25/25 08:50 Thrive Assessment: Date of Thrive Assessment Date Thrive assessed 09/17/24 03/25/25 08:50 Currently or been in a relationship where the following occur: No concerns reported Coding Level of Care Code Est Pt Level 3 (25452) Diagnoses HTN (hypertension) I10 Dyslipidemia E78.5 Microhematuria R31.29 Assessment & Plan Assessment & Plan (1) HTN (hypertension): Code(s): I10 - Essential (primary) hypertension Category: Medical (2) Dyslipidemia: Code(s): E78.5 - Hyperlipidemia, unspecified Category: Medical (3) Microhematuria: Code(s): R31.29 - Other microscopic hematuria Category: Medical Plan .
== END 2025-03-25 09:14 | disposition home or self-care (01) ==
LOC: HO.HMCC 08:11
PROVIDERS: PCP Nurse Practitioner Family; Visit Provider Nurse Practitioner Family
DX: I10 Essential (primary) hypertension (principal); E78.5 Hyperlipidemia, unspecified; R31.29 Other microscopic hematuria

== ENCOUNTER → 2025-03-25 08:10 | Outpatient (BNVA) | payer MEDICARE, SELFPAY | PROVIDERS: PCP Nurse Practitioner Family; Visit Provider Nurse Practitioner Family | DX: I10 Essential (primary) hypertension (principal); E78.5 Hyperlipidemia, unspecified; R31.29 Other microscopic hematuria | CPT/HCPCS: 99212 ==